=== PATIENT | female | born 1945 | race Caucasian/White ===

== ENCOUNTER 2017-01-07 09:09 | Emergency (ER) | payer OTHER, MEDICARE ==
[~2017-01-07] VITALS: Ht 167.6 cm; Wt 113.0 kg
[~2017-01-07 09:09] MED LIST: ASPCH81X PO; CALCTAB5 PO; CHOL100010 PO; METAMUCIL PO; MULT-506 PO; PRED1SUS3 OP; SERT50TA PO
[2017-01-07 09:15] VITALS: TEMP 36.7; Ht 167.6 cm; Wt 113.0 kg
[2017-01-07] MEDS ORDERED: CALC-393 PO (09:36)
[2017-01-07] MEDS ORDERED: FSM70 PO (09:37)
[2017-01-07] MEDS ORDERED: CHOL100041 PO (09:37)
--- NOTE | 2017-01-07 09:44 | EMERGENCY ROOM VISIT NOTE ---
History Report prepared by Louis: Naheed Duke Under the Supervision of: Dr. Heather Manzo M.D. First contact with patient: 09:25 Chief Complaint: CHEST PAIN Stated Complaint: CHEST PAINS, ARM/SHOULDER PAIN Nursing Triage Summary: Pt states she woke in the middle of the night like she always does and noticed chest discomfort, center of the chest, into the shoulder, took 6 baby aspirin and went back to bed, awoke today still had the discomfort, went to worship and her friend convinced her to come to the ER. History of Present Illness The patient is a 71 year old female who presents to the Emergency Room with complaints of persistent chest pain that began last night before she went to bed. She describes it as sore. She states that the pain feels slightly like indigestion, so she took Maalox. She went to bed but woke up around 4AM this morning with pain also in her left shoulder and left upper arm. She took 6 baby aspirin and fell back asleep. This morning when she woke up, she had pain in her chest and left upper back but not in her left arm. Denies shortness of breath, nausea, leg swelling, increased symptoms with exertion, or other complaints. She does not have a history of neck pain. Denies recent long trips. She had a stress test about 4 years ago. Source of History: patient Onset: last night Position: chest Quality: other (sore) Timing: other (persistent) Associated Symptoms: No SOB, No nausea Review of Systems See HPI for pertinent positives & negatives. A total of 10 systems reviewed and were otherwise negative. Past Medical & Surgical Medical Problems: (1) Hypertension Surgical Problems: (1) History of laminectomy (2) History of lumpectomy of both breasts (3) History of sleeve gastrectomy Family History Cancer Diabetes mellitus Heart disease Hypertension Kidney disease Social History Smoking Status: Former Smoker Alcohol Use: occasionally Marital Status: Occupation Status: retired Current/Historical Medications Scheduled Alendronate Sodium (Alendronate Sodium), 70 MG PO WK Aspirin (Aspirin Chewable), 81 MG PO QPM Calcium Carbonate (Calcium), 600 MG PO BID Cholecalciferol (D 1000), 1,000 INTER.UNIT PO BID Multivitamin (Multivitamin), 1 TAB PO BID Sertraline (Zoloft), 25 MG PO QPM Allergies Coded Allergies: Codeine (Unverified Adverse Reaction, Mild, ITCHING, 01/07/17) Physical Exam Vital Signs Date Time Temp Pulse Resp B/P Pulse Ox O2 Delivery O2 Flow Rate FiO2 01/07/17 13:14 84 122/80 95 01/07/17 11:30 68 118/70 96 01/07/17 10:54 75 112/87 96 01/07/17 09:34 78 01/07/17 09:15 36.7 81 20 173/97 97 Room Air Physical Exam Vital signs reviewed. General: Elderly, well-appearing 71 year old female, in no significant distress. HEENT: No scleral icterus, PERRLA, neck supple. Atraumatic. Cardiovascular: Regular rate and rhythm, no extra sounds. Pulmonary: Clear to auscultation bilaterally, normal work of breathing. Abdomen: Obese, soft, nontender, nondistended, positive bowel sounds. Musculoskeletal: Atraumatic, no peripheral edema. Nontender to palpation over the anterior chest wall. Minimal discomfort with range of motion of the left shoulder. Non-tender to palpation of the c-spine. Neurologic: Patient awake alert and oriented x 3, full strength in all 4 extremities. Cranial nerves 2 through 12 grossly intact. Skin: Warm, dry, no rash Medical Decision & Procedures ER Provider Diagnostic Interpretation: Radiology results as stated below per my review and radiologist interpretation: LEFT SHOULDER MIN 2 VIEWS ROUTINE CLINICAL HISTORY: L shoulder pain COMPARISON: None. DISCUSSION: No fractures or dislocations are visualized. There are benign-appearing subcentimeter lucencies within the humeral head. Degenerative changes are present within the AC joint. IMPRESSION: No fractures dislocations or periarticular calcifications are visualized Electronically signed by: Tomas Reyes M.D. 01/07/2017 11:08 AM Dictated Date/Time: 01/07/2017 11:08 AM CHEST 2 VIEWS ROUTINE CLINICAL HISTORY: Atypical chest pain COMPARISON STUDY: No previous studies for comparison. FINDINGS: The heart is at the upper limits of normal in size. There is no failure. There is no lobar consolidation. Nodular densities at the level the left cardiophrenic angle, likely representing focal atelectasis.[ No pleural effusions are visualized. IMPRESSION: Subcentimeter nodular densities at the level of left cardiophrenic angle, statistically atelectatic. No evidence of failure. No evidence of lobar consolidation Electronically signed by: Tomas Reyes M.D. 01/07/2017 10:59 AM Dictated Date/Time: 01/07/2017 10:58 AM C-SPINE ROUTINE 4 OR 5 VIEWS CLINICAL HISTORY: L shoulder pain COMPARISON STUDY: No previous studies for comparison. FINDINGS: The prevertebral soft tissues are normal. There are multilevel degenerative changes present. No acute fractures or traumatic subluxations are visualized. There is uncovertebral joint spurring with mild multilevel bony foraminal narrowing. IMPRESSION: Moderate multilevel degenerative change. No fractures, subluxations, or destructive lesions are visualized. Electronically signed by: Tomas Reyes M.D. 01/07/2017 11:00 AM Dictated Date/Time: 01/07/2017 10:59 AM Laboratory Results 01/07/17 09:20 Red Blood Count 4.82, Mean Corpuscular Volume 88.4, Mean Corpuscular Hemoglobin 29.0, Mean Corpuscular Hemoglobin Concent 32.9, Mean Platelet Volume 12.6, Neutrophils (%) (Auto) 63.1, Lymphocytes (%) (Auto) 24.2, Monocytes (%) (Auto) 9.3, Eosinophils (%) (Auto) 3.2, Basophils (%) (Auto) 0.1, Neutrophils # (Auto) 4.60, Lymphocytes # (Auto) 1.77, Monocytes # (Auto) 0.68, Eosinophils # (Auto) 0.23, Basophils # (Auto) 0.01 01/07/17 09:20 Test 01/07/17 09:20 01/07/17 12:02 White Blood Count 7.30 K/uL (4.8-10.8) Red Blood Count 4.82 M/uL (4.2-5.4) Hemoglobin 14.0 g/dL (12.0-16.0) Hematocrit 42.6 % (37-47) Mean Corpuscular Volume 88.4 fL (80-100) Mean Corpuscular Hemoglobin 29.0 pg (25-34) Mean Corpuscular Hemoglobin Concent 32.9 g/dl (32-36) Platelet Count 202 K/uL (130-400) Mean Platelet Volume 12.6 fL (7.4-10.4) Neutrophils (%) (Auto) 63.1 % Lymphocytes (%) (Auto) 24.2 % Monocytes (%) (Auto) 9.3 % Eosinophils (%) (Auto) 3.2 % Basophils (%) (Auto) 0.1 % Neutrophils # (Auto) 4.60 K/uL (1.4-6.5) Lymphocytes # (Auto) 1.77 K/uL (1.2-3.4) Monocytes # (Auto) 0.68 K/uL (0.11-0.59) Eosinophils # (Auto) 0.23 K/uL (0-0.5) Basophils # (Auto) 0.01 K/uL (0-0.2) RDW Standard Deviation 45.5 fL (36.4-46.3) RDW Coefficient of Variation 14.1 % (11.5-14.5) Immature Granulocyte % (Auto) 0.1 % Immature Granulocyte # (Auto) 0.01 K/uL (0.00-0.02) Anion Gap 9.0 mmol/L (3-11) Est Creatinine Clear Calc Drug Dose 78.5 ml/min Estimated GFR () 80.5 Estimated GFR (Non- 69.4 BUN/Creatinine Ratio 17.5 (10-20) Calcium Level 8.5 mg/dl (8.5-10.1) Total Bilirubin 0.5 mg/dl (0.2-1) Direct Bilirubin 0.1 mg/dl (0-0.2) Aspartate Amino Transf (AST/SGOT) 17 U/L (15-37) Alanine Aminotransferase (ALT/SGPT) 17 U/L (12-78) Alkaline Phosphatase 94 U/L (45-117) Total Creatine Kinase 74 U/L (26-192) Creatine Kinase MB 0.9 ng/ml (0.5-3.6) Creatine Kinase MB Ratio 1.2 (0-3.0) Total Protein 7.2 gm/dl (6.4-8.2) Albumin 3.4 gm/dl (3.4-5.0) Lipase 279 U/L (73-393) Bedside Troponin I 0.000 ng/ml (0-0.045) Laboratory results per my review. ECG Indication: chest pain Rate (beats per minute): 75 Rhythm: normal sinus Findings: no acute ischemic change, no ectopy ED Course 0933: The patient was evaluated in room A9. A complete history and physical examination was performed. 1250: Upon reevaluation, the patient was resting comfortably and hemodynamically stable. I discussed findings with the patient. She verbalized agreement of the treatment plan. The patient was discharged home. Medical Decision Chest pain: Acute coronary syndrome, pulmonary embolus, aortic dissection, musculoskeletal pain, pneumonia, pleural effusion, pneumothorax, cervical radiculopathy, shoulder injury. This patient was evaluated and appeared to be in no significant distress. IV access was obtained and laboratory work was drawn. The patient was placed on the case monitor and found to be in a normal sinus rhythm. EKG reveals no evidence of acute ischemia. Laboratory work reveals negative cardiac enzymes. Chest x-ray is clear. Patient was advised of the findings. She was advised to take Zantac 150 twice a day. She will use Tylenol as needed for her neck pain. I suspect this is potentially a cervical radiculopathy and gastritis. Patient will follow-up with her primary care physician for further cardiac testing as indicated. She will return to the ER for worsening of symptoms or any medical concerns. Impression Primary Impression: Chest pain radiating to upper extremity Scribe Attestation The scribe's documentation has been prepared under my direction and personally reviewed by me in its entirety. I confirm that the note above accurately reflects all work, treatment, procedures, and medical decision making performed by me. Departure Information Dispostion Home / Self-Care Referrals Arlyn Vallecillo D.O. (PCP) Patient Instructions My [facility] Additional Instructions Diagnosis: Chest pain rating to the left upper extremity Aspirin 81 mg daily, start tomorrow. Zantac 150 mg twice daily as needed for gastritis. Continue your Prilosec and other medications as prescribed. Follow-up with your physician this week for reevaluation and consideration of further cardiac testing. Return to the ER for worsening of symptoms or any medical concerns.
[2017-01-07 10:43] LABS: BASO % 0.1 %; BASO ABS # 0.01 K/uL (0-0.2); COMPLETE YES; EOS % 3.2 %; HEMATOCRIT 42.6 % (37-47); IG% 0.1 %; LYMPH % 24.2 %; LYMPH ABS # 1.77 K/uL (1.2-3.4); MEAN CELL VOLUME 88.4 fL (80-100); MEAN CORPUSCULAR HGB CONC 32.9 g/dl (32-36); MEAN PLATELET VOLUME 12.6 fL (7.4-10.4); MONO % 9.3 %; NEUT % 63.1 %; PLATELET COUNT 202 K/uL (130-400); RED BLOOD COUNT 4.82 M/uL (4.2-5.4)
[2017-01-07] MEDS ORDERED: SERT25TA PO (10:46)
[2017-01-07 10:51] LABS: BUN/CREATININE RATIO 17.5 (10-20); CALCIUM 8.5 mg/dl (8.5-10.1); CREATININE 0.85 mg/dl (0.60-1.20); POTASSIUM 4.2 mmol/L (3.5-5.1)
[2017-01-07 10:56] LABS: CKMB/CK RATIO 1.2 (0-3.0)
--- NOTE | 2017-01-07 11:00 | DIAGNOSTIC IMAGING REPORT ---
CHEST 2 VIEWS ROUTINE CLINICAL HISTORY: Atypical chest pain COMPARISON STUDY: No previous studies for comparison. FINDINGS: The heart is at the upper limits of normal in size. There is no failure. There is no lobar consolidation. Nodular densities at the level the left cardiophrenic angle, likely representing focal atelectasis.[ No pleural effusions are visualized. IMPRESSION: Subcentimeter nodular densities at the level of left cardiophrenic angle, statistically atelectatic. No evidence of failure. No evidence of lobar consolidation Electronically signed by: Tomas Reyes M.D. 01/07/2017 10:59 AM Dictated Date/Time: 01/07/2017 10:58 AM
--- NOTE | 2017-01-07 11:01 | DIAGNOSTIC IMAGING REPORT ---
C-SPINE ROUTINE 4 OR 5 VIEWS CLINICAL HISTORY: L shoulder pain COMPARISON STUDY: No previous studies for comparison. FINDINGS: The prevertebral soft tissues are normal. There are multilevel degenerative changes present. No acute fractures or traumatic subluxations are visualized. There is uncovertebral joint spurring with mild multilevel bony foraminal narrowing. IMPRESSION: Moderate multilevel degenerative change. No fractures, subluxations, or destructive lesions are visualized. Electronically signed by: Tomas Reyes M.D. 01/07/2017 11:00 AM Dictated Date/Time: 01/07/2017 10:59 AM
--- NOTE | 2017-01-07 11:10 | DIAGNOSTIC IMAGING REPORT ---
LEFT SHOULDER MIN 2 VIEWS ROUTINE CLINICAL HISTORY: L shoulder pain COMPARISON: None. DISCUSSION: No fractures or dislocations are visualized. There are benign-appearing subcentimeter lucencies within the humeral head. Degenerative changes are present within the AC joint. IMPRESSION: No fractures dislocations or periarticular calcifications are visualized Electronically signed by: Tomas Reyes M.D. 01/07/2017 11:08 AM Dictated Date/Time: 01/07/2017 11:08 AM
[2017-01-07 13:14] VITALS: BP 122/80; PULSE 84; O2SAT 95
== END 2017-01-07 13:15 | disposition home or self-care (01) ==
LOC: C.EDB 09:11 → C.EDA 13:15
DX: R07.9 Chest pain, unspecified (principal); M25.512 Pain in left shoulder; M54.6 Pain in thoracic spine; I10 Essential (primary) hypertension; Z79.899 Other long term (current) drug therapy; Z98.890 Other specified postprocedural states; Z79.82 Long term (current) use of aspirin; Z88.5 Allergy status to narcotic agent; Z87.891 Personal history of nicotine dependence; Z80.9 Family history of malignant neoplasm, unspecified; Z83.3 Family history of diabetes mellitus; Z82.49 Family history of ischemic heart disease and other diseases of the circulatory system; Z84.1 Family history of disorders of kidney and ureter

== ENCOUNTER 2024-04-12 10:18 | Inpatient (IN) ==
--- NOTE | 2024-04-12 10:29 | Emergency Department Note ---
History of Present Illness General Chief complaint: Fall Stated complaint: FALL Time Seen by Provider: 04/12/24 10:19 History of Present Illness This is a 78-year-old female that presents to the emergency department via EMS with complaints of "nausea, vomiting, fall". Patient currently on oral Eliquis she notes secondary to history of atrial fibrillation. Over the past 4 days she notes nausea, vomiting and diarrhea. No abdominal pain. She states that she fell last evening, struck her head/face, and laid on the floor for about 1 hour. She denies any headache or neck pain. She denies any chest pain or shortness of breath currently but noted some earlier today. Patient also notes a large amount of diarrhea over the past few days as well. Home Medications Medication Instructions Recorded Confirmed Type ASPIRIN (ASPIRIN CHEWABLE) 81 mg PO DAILY ##0 01/22/16 04/12/24 History Multivitamin 1 tab PO DAILY #0 tabs 01/22/16 04/12/24 History Alendronate Sodium 70 mg PO USEASDIRECTD ##0 01/07/17 04/12/24 History CALCIUM CARBONATE (CALCIUM) 600 mg PO DAILY ##0 01/07/17 04/12/24 History CHOLECALCIFEROL (D 1000) 1,000 inter.unit PO DAILY ##0 01/07/17 04/12/24 History apixaban 5 mg tablet (Eliquis) 5 mg PO BID 04/12/24 04/12/24 History atorvastatin 40 mg tablet 40 mg PO DAILY 04/12/24 04/12/24 History furosemide 20 mg tablet 20 mg PO .[id number] 04/12/24 04/12/24 History metoprolol succinate 25 mg 25 mg PO DAILY 04/12/24 04/12/24 History tablet,extended release 24 hr sertraline 100 mg tablet 150 mg PO QAM 04/12/24 04/12/24 History trospium 60 mg capsule,extended 60 mg PO QAM 04/12/24 04/12/24 History release 24 hr Allergies Allergy/AdvReac Type Severity Reaction Status Date / Time codeine AdvReac Mild ITCHING Verified 04/12/24 13:57 Past Med/Surg History Problem List (Updated 04/12/24 @ 18:11 by Teofilo Lewis PA-C) Elevated procalcitonin (Acute) Elevated lactic acid level (Acute) Elevated troponin (Acute) Acute dehydration (Acute) Persistent atrial fibrillation (Acute) Urinary incontinence Depression Prediabetes Hyperlipidemia Acute kidney failure (Acute) Dehydration symptoms Hydronephrosis with obstructing calculus (Acute) 15mm obstructing calculus at the R ureteropelvic junction causing moderate right hydronephrosis. Emphysematous pyelonephritis (Acute) Nephrolithiasis Chronic anticoagulation (Acute) Fall (Acute) Metabolic acidosis (Acute) NATALIO (acute kidney injury) Gastroenteritis Hypertension (Chronic) Medical History (Updated 04/12/24 @ 18:11 by Teofilo Lewis PA-C) Right renal mass Urinary calculus Cyst of left ovary Paraesophageal hiatal hernia Nocturnal enuresis Stress incontinence History of basal cell carcinoma Diverticulitis History of radiation therapy History of breast cancer Osteoporosis Recurrent UTI Urge incontinence of urine Heart murmur Paroxysmal A-fib Surgical History History of repair of hiatal hernia History of partial mastectomy of right breast History of laparoscopic cholecystectomy History of sleeve gastrectomy History of lumpectomy of both breasts History of laminectomy Social History Smoking Status: Former smoker Hx Alcohol Use: Yes Alcohol type: wine Hx Substance Use: No Preferred Language: Citizen Of [place] Communication Ability: Effective Hotel Baggage Handler Required: No Beliefs That Will Affect Care: None Current Living Situation: Alone Feels Safe at Home: Yes Review of Systems A total of 10 systems reviewed and were otherwise negative Physical Exam Vital Signs Vital Signs - 24 hr 04/12/24 10:34 04/12/24 10:42 04/12/24 10:47 Temperature 36.9 C Temperature Source Oral Pulse Rate 99 H 137 H Pulse Rate from SpO2 Sensor Respiratory Rate 18 31 H Respiratory Effort / Characteristics Non-Labored Respiratory Depth Normal Respiratory Pattern Regular Blood Pressure 107/77 Blood Pressure Mean 87 Pulse Oximetry 98 Oxygen Delivery Method Room Air Sepsis Recent Fever Within 48 Hours No Sepsis New/Unexplained Change in Mental Status N/A Sepsis Action Taken by Nursing No Action Required 04/12/24 10:51 04/12/24 11:09 04/12/24 11:12 Temperature Temperature Source Pulse Rate 110 H 105 H 101 H Pulse Rate from SpO2 Sensor 112 H Respiratory Rate 21 25 H 25 H Respiratory Effort / Characteristics Respiratory Depth Respiratory Pattern Blood Pressure Blood Pressure Mean Pulse Oximetry 98 Oxygen Delivery Method Sepsis Recent Fever Within 48 Hours Sepsis New/Unexplained Change in Mental Status Sepsis Action Taken by Nursing 04/12/24 11:27 04/12/24 11:39 04/12/24 11:51 Temperature Temperature Source Pulse Rate 98 H 94 H 103 H Pulse Rate from SpO2 Sensor Respiratory Rate 33 H 29 H 28 H Respiratory Effort / Characteristics Respiratory Depth Respiratory Pattern Blood Pressure Blood Pressure Mean Pulse Oximetry 96 Oxygen Delivery Method Sepsis Recent Fever Within 48 Hours Sepsis New/Unexplained Change in Mental Status Sepsis Action Taken by Nursing 04/12/24 11:54 04/12/24 12:03 04/12/24 12:12 Temperature Temperature Source Pulse Rate 98 H 109 H Pulse Rate from SpO2 Sensor Respiratory Rate 21 Respiratory Effort / Characteristics Respiratory Depth Respiratory Pattern Blood Pressure 63/48 L Blood Pressure Mean 58 Pulse Oximetry Oxygen Delivery Method Sepsis Recent Fever Within 48 Hours Sepsis New/Unexplained Change in Mental Status Sepsis Action Taken by Nursing 04/12/24 12:15 04/12/24 12:19 04/12/24 12:21 Temperature Temperature Source Pulse Rate Pulse Rate from SpO2 Sensor Respiratory Rate Respiratory Effort / Characteristics Respiratory Depth Respiratory Pattern Blood Pressure 90/73 L 64/48 L 73/46 L Blood Pressure Mean 80 53 47 Pulse Oximetry Oxygen Delivery Method Sepsis Recent Fever Within 48 Hours Sepsis New/Unexplained Change in Mental Status Sepsis Action Taken by Nursing 04/12/24 12:24 Temperature Temperature Source Pulse Rate 99 H Pulse Rate from SpO2 Sensor 101 H Respiratory Rate 28 H Respiratory Effort / Characteristics Respiratory Depth Respiratory Pattern Blood Pressure Blood Pressure Mean Pulse Oximetry 98 Oxygen Delivery Method Sepsis Recent Fever Within 48 Hours Sepsis New/Unexplained Change in Mental Status Sepsis Action Taken by Nursing VITAL SIGNS - Vital signs and nursing notes were reviewed. GENERAL -78-year-old female appearing her stated age who is in no acute distress. Clinically dry appearing. Yellow diarrhea/stool noted overlying the patient's backside. Communicates well with provider and answers questions appropriately. SKIN - Without rashes. No meningeal or petechial rash HEAD - NC/AT. EYES - PERRL with EOMI bilaterally. Sclera anicteric. EARS - No deformities of external structures noted on gross examination bilaterally. No hemotympanum. NOSE - Midline and without cyanosis. No epistaxis or purulent drainage noted. MOUTH/OROPHARYNX - Without perioral cyanosis. Oral mucosa is dry appearing. Small abrasion noted to the upper lip area and chin without repairable laceration. Small amount of ecchymosis seen overlying the chin. NECK - Neck with FROM. No C-spine tenderness. No nuchal rigidity. LUNGS - Chest wall symmetric without accessory muscle use, intercostals retractions, or central cyanosis. Normal vesicular breath sounds CTA B/L. No wheezes, rales, or rhonchi appreciated. CARDIAC - IRR ABDOMEN - Abdominal contour normal without pulsations or visible masses. BS normoactive all four quadrants. No tenderness, palpable masses, hepatosplenomegaly, or ascites noted. EXTREMITIES - No clubbing or peripheral cyanosis. No pretibial edema present. +5/5 strength noted in UE/LE bilaterally. NEUROLOGIC - Cranial nerves II through XII grossly intact. No deficits on examination PSYCH -alert, oriented and pleasant on exam Course Administered Medications Norepinephrine Bitartrate (Levophed/D5w) 4 mg in 250 mls @ 18.9 mls/hr IV .[id number] [facility]; Protocol Stop: 05/12/24 13:14 Last Admin: 04/12/24 15:00 Dose: 0.05 mcg/kg/min, 18.9 mls/hr Documented By: GEORGES Co-signed By: SERA Sodium Chloride (Nss) 1,000 mls @ 125 mls/hr IV .Q8H [facility] Stop: 05/12/24 15:52 Last Admin: 04/12/24 16:55 Dose: 125 mls/hr Documented By: AVIS Discontinued Medications Sodium Chloride (Nss) 1,000 mls @ 500 mls/hr IV .Q2H MARY Stop: 04/12/24 12:29 Last Infusion: 04/12/24 12:59 Dose: Infused Documented By: Admin: 04/12/24 10:40 Dose: 500 mls/hr Documented By: RAYO Piperacillin Sod/Tazobactam Sod (Zosyn) 4.5 gm in 100 mls @ 200 mls/hr IV NOW ONE Stop: 04/12/24 12:05 Last Infusion: 04/12/24 12:59 Dose: Infused Documented By: Admin: 04/12/24 11:57 Dose: 200 mls/hr Documented By: RAYO Sodium Chloride (Nss) 1,000 mls @ 500 mls/hr IV .Q2H MARY Stop: 04/12/24 13:44 Last Admin: 04/12/24 11:57 Dose: 500 mls/hr Documented By: RAYO Sodium Chloride (Nss) 500 mls @ 500 mls/hr IV .Q1H ONE Stop: 04/12/24 14:02 Last Admin: 04/12/24 13:25 Dose: 500 mls/hr Documented By: RAYO Lactated Ringer's (Lr) 1,000 mls @ 15 mls/hr IV .Q24H MARY Stop: 05/12/24 14:14 Last Infusion: 04/12/24 14:07 Dose: Infused Documented By: Admin: 04/12/24 14:02 Dose: 15 mls/hr Documented By: TANNA Critical Care Time I have personally spent 75 minutes of critical care time in the direct management of this patient. This includes bedside care, interpretation of diagnostic studies, and testing, discussion with consultants, patient, and family members, and other required patient management activities. This 75 minutes is in excess of all separately billable procedures. Medical Decision Making Laboratory Data 04/12/24 10:42 04/12/24 10:42 Lab Results 04/12/24 04/12/24 04/12/24 Range/Units 10:41 10:42 10:44 WBC 10.15 (4.8-10.8) K/ul RBC 4.49 (4.20-5.40) M/uL Hgb 12.6 (12.0-16.0) g/dl Hct 39.7 (37.0-47.0) % MCV 88.4 (80.0-100.0) fL MCH 28.1 (25.0-34.0) pg MCHC 31.7 L (32.0-36.0) g/dL RDW Std Deviation 49.2 H (36.4-46.3) fL RDW Coeff of Umu 15.3 H (11.5-14.5) % Plt Count 83 L (130-400) K/uL MPV 14.0 H (9.4-12.4) fL Immature Gran % (Auto) 2.4 % Neut % (Auto) 92.1 % Lymph % (Auto) 3.1 % [place] % (Auto) 2.1 % Eos % (Auto) 0.0 % Baso % (Auto) 0.3 % Neut # (Auto) 9.36 H (1.40-6.50) K/uL Lymph # (Auto) 0.31 L (1.20-3.40) K/uL [place] # (Auto) 0.21 (0.11-0.59) K/uL Eos # (Auto) 0.00 (0.00-0.50) K/uL Baso # (Auto) 0.03 (0.00-0.20) K/uL Immature Gran # (Auto) 0.24 H (0.01-0.20) K/uL Toxic Vacuolation 2+ Polychromasia 1+ Echinocytes 2+ PT 15.6 H (9.0-12.0) Seconds INR 1.5 H (0.9-1.1) APTT 37 H (21-31) Seconds PTT Ratio 1.4 Sodium 135 L (136-145) mmol/L Potassium 4.3 (3.5-5.1) mmol/L Chloride 103 (98-107) mmol/L Carbon Dioxide 15 L (21-32) mmol/L Anion Gap 17 H (3-11) BUN 39 H (6-23) mg/dl Creatinine 2.98 H (0.6-1.2) mg/dl Est Cr Clr Drug Dosing 18.9 ml/min Est GFR ( Amer) 16.8 ml/min Est GFR (Non-Af Amer) 14.5 ml/min BUN/Creatinine Ratio 13.1 (10-20) Glucose 76 (70-99(Fasting)) mg/dl Lactate 8.1 H* (0.4-2.0) mmol/L Calcium 8.5 L (8.6-10.3) mg/dl Magnesium 1.7 (1.7-2.4) mg/dl Total Bilirubin 1.4 H (0.2-1.0) mg/dl AST 69 H (13-39) U/L ALT 34 (7-52) U/L Alkaline Phosphatase 124 H (34-104) U/L Total Creatine Kinase 805 H (26-192) U/L Troponin I High Sens 748.3 H* (0-14) pg/ml Total Protein 6.4 (6.0-8.3) gm/dl Albumin 3.3 L (3.4-5.0) gm/dl Globulin 3.1 (2.5-4.0) gm/dl Albumin/Globulin Ratio 1.1 (0.9-2) Lipase 5 L (11-82) U/L Procalcitonin 55.60 H (0-0.5) ng/ml TSH 3.626 (0.300-4.500) uIu/ml Adenovirus (PCR) Not Detected (NotDetected) Anaplasma Smear See Comment Babesia Smear See Comment B. pertussis DNA (PCR) Not Detected (NotDetected) B.parapertussis DNA PCR Not Detected (NotDetected) Lyme Disease Screen Negative (Negative) C. pneumoniae DNA (PCR) Not Detected (NotDetected) Coronavirus OC43 (PCR) Not Detected (NotDetected) Coronavirus HKU1 (PCR) Not Detected (NotDetected) Coronavirus 229E (PCR) Not Detected (NotDetected) SARS-CoV-2 (PCR) Not Detected (NotDetected) Coronavirus NL63 (PCR) Not Detected (NotDetected) Human Metapneumovir PCR Not Detected (NotDetected) Influenza Type A (PCR) Not Detected (NotDetected) Influenza Type B (PCR) Not Detected (NotDetected) M. pneumoniae (PCR) Not Detected (NotDetected) Parainfluenza 1 (PCR) Not Detected (NotDetected) Parainfluenza 2 (PCR) Not Detected (NotDetected) Parainfluenza 3 (PCR) Not Detected (NotDetected) Parainfluenza 4 (PCR) Not Detected (NotDetected) RSV (PCR) Not Detected (NotDetected) Entero/Rhino (PCR) Not Detected (NotDetected) 04/12/24 Range/Units 12:27 WBC (4.8-10.8) K/ul RBC (4.20-5.40) M/uL Hgb (12.0-16.0) g/dl Hct (37.0-47.0) % MCV (80.0-100.0) fL MCH (25.0-34.0) pg MCHC (32.0-36.0) g/dL RDW Std Deviation (36.4-46.3) fL RDW Coeff of Umu (11.5-14.5) % Plt Count (130-400) K/uL MPV (9.4-12.4) fL Immature Gran % (Auto) % Neut % (Auto) % Lymph % (Auto) % [place] % (Auto) % Eos % (Auto) % Baso % (Auto) % Neut # (Auto) (1.40-6.50) K/uL Lymph # (Auto) (1.20-3.40) K/uL [place] # (Auto) (0.11-0.59) K/uL Eos # (Auto) (0.00-0.50) K/uL Baso # (Auto) (0.00-0.20) K/uL Immature Gran # (Auto) (0.01-0.20) K/uL Toxic Vacuolation Polychromasia Echinocytes PT (9.0-12.0) Seconds INR (0.9-1.1) APTT (21-31) Seconds PTT Ratio Sodium (136-145) mmol/L Potassium (3.5-5.1) mmol/L Chloride (98-107) mmol/L Carbon Dioxide (21-32) mmol/L Anion Gap (3-11) BUN (6-23) mg/dl Creatinine (0.6-1.2) mg/dl Est Cr Clr Drug Dosing ml/min Est GFR ( Amer) ml/min Est GFR (Non-Af Amer) ml/min BUN/Creatinine Ratio (10-20) Glucose (70-99(Fasting)) mg/dl Lactate 6.2 H* (0.4-2.0) mmol/L Calcium (8.6-10.3) mg/dl Magnesium (1.7-2.4) mg/dl Total Bilirubin (0.2-1.0) mg/dl AST (13-39) U/L ALT (7-52) U/L Alkaline Phosphatase (34-104) U/L Total Creatine Kinase (26-192) U/L Troponin I High Sens 759.8 H* (0-14) pg/ml Total Protein (6.0-8.3) gm/dl Albumin (3.4-5.0) gm/dl Globulin (2.5-4.0) gm/dl Albumin/Globulin Ratio (0.9-2) Lipase (11-82) U/L Procalcitonin (0-0.5) ng/ml TSH (0.300-4.500) uIu/ml Adenovirus (PCR) (NotDetected) Anaplasma Smear Babesia Smear B. pertussis DNA (PCR) (NotDetected) B.parapertussis DNA PCR (NotDetected) Lyme Disease Screen (Negative) C. pneumoniae DNA (PCR) (NotDetected) Coronavirus OC43 (PCR) (NotDetected) Coronavirus HKU1 (PCR) (NotDetected) Coronavirus 229E (PCR) (NotDetected) SARS-CoV-2 (PCR) (NotDetected) Coronavirus NL63 (PCR) (NotDetected) Human Metapneumovir PCR (NotDetected) Influenza Type A (PCR) (NotDetected) Influenza Type B (PCR) (NotDetected) M. pneumoniae (PCR) (NotDetected) Parainfluenza 1 (PCR) (NotDetected) Parainfluenza 2 (PCR) (NotDetected) Parainfluenza 3 (PCR) (NotDetected) Parainfluenza 4 (PCR) (NotDetected) RSV (PCR) (NotDetected) Entero/Rhino (PCR) (NotDetected) Imaging Data Radiologist's Impression: Abdomen Fluoroscopy 04/12/24 00:00 FL KUB CLINICAL HISTORY: RIGHT STENT PLACEMENT COMPARISON STUDY: None. FLUOROSCOPY TIME: 12 seconds FLUOROSCOPY IMAGES: 3 Ka,r: 4.2 mGy FINDINGS: Fluoroscopic spot images demonstrate a guidewire and stent within the right renal collecting system. IMPRESSION: Fluoroscopic assistance as above. ACT 112: Negative or not required by law. Electronically signed by: Boy Abel M.D. 04/12/2024 3:[address] 04/12/24 10:30 CT SCAN OF THE CERVICAL SPINE CLINICAL HISTORY: Fall. COMPARISON STUDY: Cervical spine radiographs dated 01/07/2017. TECHNIQUE: CT scan of the cervical spine is performed from the skull base to the upper thoracic spine. Images are reviewed in the axial, sagittal, and coronal planes. IV contrast was not administered for this examination. A dose lowering technique was utilized adhering to the principles of ALARA. CT DOSE: 1158.32 mGy.cm FINDINGS: Skeletal structures: The skeletal structures are osteopenic. There is no evidence of fracture or subluxation involving the cervical spine. Vertebral body height and alignment are maintained. There is straightening of the cervical lordosis. Anterior osteophytes are seen throughout. The odontoid process and lateral masses are intact. The atlantoaxial articulation is preserved noting advanced productive degenerative change. The spinous processes appear intact. There is moderate multilevel cervical spondylosis. Uncovertebral and facet arthropathy contribute to neural foraminal narrowing at several levels. Intervertebral discs: There is moderate disc space narrowing at C5-C6 and C6-C7. Mild narrowing is seen at the remaining cervical levels. Central canal: Posterior disc osteophyte complexes at C3-C4, C5-C6, and C6-C7 may contribute to multilevel acquired compromise of the central canal. Soft tissues: The prevertebral and paraspinous soft tissues are within normal limits. There is atherosclerotic calcification of the carotid bulbs. Calvarium: The visualized calvarium at the skull base appears intact. Brain parenchyma: Partially visualized brain parenchyma at the skull base is within normal limits. Sinuses and mastoids: The visualized paranasal sinuses are clear. The mastoid air cells are well pneumatized. Lung apices: Clear as visualized. IMPRESSION: 1. There is no evidence of fracture or subluxation involving the cervical spine. 2. Osteopenia and spondylotic change as above. ACT 112: Negative or not required by law. Electronically signed by: Jersey Gann M.D. 04/12/2024 11:23 AM Chest X-Ray 04/12/24 10:30 XR chest 1V portable HISTORY: 78 years-old Female fall acute chest trauma status post fall COMPARISON: 01/07/2017 TECHNIQUE: AP view of the chest FINDINGS: Cardiac silhouette is mildly enlarged. Atherosclerosis of the aorta. Areas of linear subsegmental atelectasis versus scarring noted within the left lung. No pneumothorax, pleural effusion, airspace consolidation or pulmonary edema. Upper abdominal surgical clips. Degenerative changes of the shoulders and spine. IMPRESSION: No acute process of the chest. ACT 112: Negative or not required by law. The above report was generated using voice recognition software. It may contain grammatical, syntax or spelling errors. Electronically signed by: Joshua Wynn M.D. 04/12/2024 11:[address] 04/12/24 10:30 CT facial bones wo con CLINICAL HISTORY: 78 years-old Female presenting with fall, facial trauma. Acute head and facial trauma status post fall COMPARISON STUDY: CT head and cervical spine studies of same day TECHNIQUE: High-resolution CT scan of the facial bones is performed. Images are reviewed in the axial, sagittal, and coronal planes. IV contrast was not administered for this examination. A dose lowering technique was utilized adhering to the principles of ALARA. FINDINGS: CT head and cervical spine studies will be dictated separately. Prior bilateral lens repair. Hyperostosis frontalis interna. The mastoid air cells and middle ear cavities are generally clear. Paranasal sinuses are clear. Chronic appearing anterior nasal septal defect. No acute facial bone fracture. Left supraclavicular lymphadenopathy. IMPRESSION: 1. No acute facial bone fracture identified. 2. Nonspecific left supraclavicular lymphadenopathy could be correlated with follow-up ultrasound/tissue sampling. ACT 112: Negative or not required by law. The above report was generated using voice recognition software. It may contain grammatical, syntax or spelling errors. Electronically signed by: Joshua Wynn M.D. 04/12/2024 11:[address] 04/12/24 10:[address] DOSE: HISTORY: fall, anticoagulated TECHNIQUE: Multiaxial CT images of the head were performed without the use of intravenous contrast. Automated exposure control was utilized for this study. A dose lowering technique was utilized adhering to the principles of ALARA. Comparison: None. Findings: The paranasal sinuses and mastoid air cells are clear. The calvarium and skull base are intact. There is no mass, hematoma, midline shift, acute infarct. White matter hypodensity is nonspecific but suggestive of microvascular ischemic change. The ventricles and sulci demonstrate mild age-related involutional changes. Impression: No acute intracranial abnormality. ACT 112: Negative or not required by law. Electronically signed by: Boy Abel M.D. 04/12/2024 11:41 AM Abdomen/Pelvis CT 04/12/24 12:13 CT SCAN OF THE ABDOMEN AND PELVIS WITHOUT IV CONTRAST CLINICAL HISTORY: Gastroenteritis. Hypotension. COMPARISON STUDY: Abdominal CT dated 02/28/2023. TECHNIQUE: CT scan of the abdomen and pelvis is performed from the lung bases to the proximal femora. Images are reviewed in the axial, sagittal, and coronal planes. IV contrast was not administered for this examination. Note that the examination was performed in suboptimal fashion without oral and IV contrast. A dose lowering technique was utilized adhering to the principles of ALARA. CT DOSE: 1489.07 mGy.cm FINDINGS: Lung bases: The heart is top normal for projection noting trace pericardial effusion. There is diminished attenuation of the cardiac blood pool as compared to the myocardium suggesting anemia. There are small right and trace left pleural effusions with dependent atelectasis. Liver: The unenhanced liver is normal in size, contour, and attenuation. There is no intrahepatic biliary ductal dilatation. Gallbladder: Surgically absent noting clips in the gallbladder fossa. Spleen: Normal in size and attenuation. Pancreas: The unenhanced pancreas is atrophic and grossly unremarkable. Adrenal glands: Unremarkable. Kidneys: The unenhanced kidneys demonstrate mild cortical atrophy. There is a 15 mm obstructing calculus at the right ureteropelvic junction seen on axial image #166. This causes moderate right hydronephrosis. There is gas within the right renal collecting system. There are at least 4 additional nonobstructing right renal calculi which measure up to 4 mm. There is a 10 mm calculus in the left renal pelvis, with 2 additional left lower pole calculi measuring up to 3 mm. There is no left ureteral stone or left-sided hydronephrosis. Urothelial thickening is seen in the renal pelvis bilaterally with surrounding inflammation. There is asymmetric right-sided perinephric stranding. A 2.4 cm complex exophytic cyst is again noted on the right. Abdominal vasculature: The abdominal aorta is normal in course and caliber noting mild to moderate atherosclerotic calcification. Stomach and bowel: There is a moderate hiatal hernia. Postsurgical change is seen in the stomach. There is mild to moderate colonic diverticulosis without CT evidence of acute diverticulitis. No bowel obstruction is identified. The appendix is well-visualized and normal. Peritoneum: There is a small volume of pelvic ascites. No intraperitoneal free air is seen. There is a fat-containing umbilical hernia. Lymphadenopathy: None. Pelvic viscera: The bladder is decompressed and appears thick-walled. There is intraluminal gas. The uterus is diminutive versus surgically absent. A 5 cm cystic lesion is again seen in the left ovary. Skeletal structures: The skeletal structures are osteopenic. There is moderate lumbosacral spondylosis. Postsurgical changes noted at L5-S1. No lytic or blastic lesions are seen. IMPRESSION: 1. There is a 15 mm obstructing calculus at the right ureteropelvic junction. This causes moderate right hydronephrosis. 2. Additional bilateral renal calculi as above. 3. The bladder appears thick walled and contains intraluminal gas. There is also gas within the right renal collecting system. Correlate with clinical findings and urinalysis for evidence of urinary tract infection. 4. Urothelial thickening is seen within the renal pelvis bilaterally. Perinephric stranding is asymmetrically greater on the right. 5. Small right and trace left pleural effusions. 6. Cardiomegaly and hiatal hernia. 7. Small volume pelvic ascites. 8. Additional findings as above. ACT 112: Negative or not required by law. Electronically signed by: Jersey Gann M.D. 04/12/2024 12:56 PM [facility] Narrative Patient was seen and evaluated as above in room C06. Review was performed of triage nursing notes and vital signs. After obtaining a thorough history and physical examination the above work up was performed. Patient presents to us today via EMS for assessment of 4 days of nausea, vomiting, diarrhea, chills, body aches and also sustained a fall last evening and laid on the ground for about 1 hour. She lives alone. Patient tried to call 911 but was unsuccessful therefore reached out to family member which she notes was her niece, and she then called 911. EMS then brought the patient here. On arrival the patient does have some diarrhea overlying her backside. Patient was being actively cleansed upon my assessment. She does not have any pain at the present time. She has a benign abdominal examination. She appears quite dehydrated. EKG per my interpretation reveals: Atrial fibrillation at a rate of 106 bpm. QTc 475. QRS 96. There is no ST elevation on this rhythm tracing. Labs reveal no leukocytosis or concerning anemia. INR 1.5. Hyponatremia 135. NATALIO noted with creatinine of 2.98 and BUN at 39. Initial lactate 8.1. Troponin elevated at 748. Patient does not have active chest pain. Lipase normal. Procalcitonin elevated at 55.6. Bio fire panel negative. Stool panel negative. Lyme testing preliminarily negative with confirmatory/send out test pending regarding tickborne illnesses at this time. Empiric IV antibiotics were ordered for suspected infectious etiology. The patient does require hospitalization and at this time remains hemodynamically stable. Upon multiple reassessments she continues to appear well. No complaints of pain at the present time. I did consult the hospitalist service for further evaluation and management in the inpatient setting. At 12:13 PM I received a phone call from the patient's RN. Patient was noted to be hypotensive at that time. I immediately went to bedside. This hypotension is a new finding. IV fluids currently infusing and now changed to wide open at this time to further the fluid resuscitation. A CT scan was going to be ordered of the abdomen/pelvis but had just already been entered as an order by the admitting service. Patient will be sent straight to CT for imaging of the abdomen/pelvis to further evaluate the patient's new hypotension in the setting of nauseous, vomiting and diarrhea. Noting concern for sepsis/dehydration, patient ideal body weight is 59 kg. 59 kg x 30 mL/kilogram equals just under 1800 mL. After the first liter of NSS, I did order another 800 mL to adequately hydrate and fluid resuscitate. However, once patient's vitals showed new hypotension the 800 mL was changed to 1000 mL to provide a total of 2L nss. Timing was closely watched to ensure that she received the 30 mL/kilogram in 3-hour window. 12:51- CTAP pictures reviewed and are concerning for ureteral obstructing stone w/ gas on Right side. I called and spoke to the radiologist as the pictures were just now available and the formal read is currently still pending. I spoke with Dr. Gann. There is an obstructing stone and clinically I suspect infection with this. At 12:55 PM I spoke with urology, Dr. Leo. The patient has emphysematous pyelonephritis. Patient will go directly to the operating room for stenting and intervention of the suspected UTI w/ obstruction secondary to ureteral calculus. 1:03PMI spoke with Dr. Escobar, ICU attending. Patient is being fluid resuscitated. Furthermore, recommendation is to start Levophed and patient will be taken to the ICU following the urologic procedure. Please refer to further documentation regarding patient stay. GCS: 15 In the evaluation and treatment of this patient the following differential diagnoses were entertained: Pneumonia, sepsis, dehydration, rhabdomyolysis, UTI, polynephritis, among others Impression & Plan Emphysematous pyelonephritis, Fall, Chronic anticoagulation, Hydronephrosis with obstructing calculus, Acute kidney failure, Acute dehydration, Elevated troponin, Elevated lactic acid level, Elevated procalcitonin, Persistent atrial fibrillation, Metabolic acidosis Discharge Plan Visit Data Chief Complaint: Fall Stated Complaint: FALL ED Provider: Jesrey Wilson ED Midlevel Provider: Teofilo Lewis Discharge Problem: Emphysematous pyelonephritis, Fall, Chronic anticoagulation, Hydronephrosis with obstructing calculus, Acute kidney failure, Acute dehydration, Elevated troponin, Elevated lactic acid level, Elevated procalcitonin, Persistent atrial fibrillation, Metabolic acidosis Patient Disposition: Admitted As Inpatient Discharge Instructions Interventions: ED Discharge Assessment Last Done: 04/12/24 13:49
[2024-04-12] MEDS: SODIUM CHLORIDE 0.9% 1,000 ML IV SCH ×3 (10:40→16:55)
[2024-04-12 11:13] LABS: Albumin Level 3.3 gm/dl (3.4-5.0); Bilirubin,Total 1.4 mg/dl (0.2-1.0); Calcium 8.5 mg/dl (8.6-10.3); Magnesium 1.7 mg/dl (1.7-2.4); Potassium 4.3 mmol/L (3.5-5.1)
[2024-04-12 11:19] LABS: Albumin Globulin Ratio 1.1 (0.9-2); BUN Creatinine Ratio 13.1 (10-20); Creatinine Clr Calc Pharmacy 18.9 ml/min; Est GFR (African American) 16.8 ml/min; Est GFR (Non-African American) 14.5 ml/min; Globulin 3.1 gm/dl (2.5-4.0); Total Protein 6.4 gm/dl (6.0-8.3)
--- NOTE | 2024-04-12 11:22 | XRay Report ---
XR chest 1V portable HISTORY: 78 years-old Female fall acute chest trauma status post fall COMPARISON: 01/07/2017 TECHNIQUE: AP view of the chest FINDINGS: Cardiac silhouette is mildly enlarged. Atherosclerosis of the aorta. Areas of linear subsegmental ate lectasis versus scarring noted within the left lung. No pneumothorax, pleural effusion, airspace cons olidation or pulmonary edema. Upper abdominal surgical clips. Degenerative changes of the shoulders a nd spine. IMPRESSION: No acute process of the chest. ACT 112: Negative or not required by law. The above report was generated using voice recognition software. It may contain grammatical, syntax o r spelling errors. Electronically signed by: Joshua Wynn M.D. 04/12/2024 11:20 AM
[2024-04-12 11:24] LABS: INR 1.5 (0.9-1.1); Partial Thromboplastin Ratio 1.4; Partial Thromboplastin Time 37 Seconds (21-31); Prothrombin Time 15.6 Seconds (9.0-12.0)
--- NOTE | 2024-04-12 11:24 | CT Scan Report ---
CT SCAN OF THE CERVICAL SPINE CLINICAL HISTORY: Fall. COMPARISON STUDY: Cervical spine radiographs dated 01/07/2017. TECHNIQUE: CT scan of the cervical spine is performed from the skull base to the upper thoracic spine . Images are reviewed in the axial, sagittal, and coronal planes. IV contrast was not administered fo r this examination. A dose lowering technique was utilized adhering to the principles of ALARA. CT DOSE: 1158.32 mGy.cm FINDINGS: Skeletal structures: The skeletal structures are osteopenic. There is no evidence of fracture or subl uxation involving the cervical spine. Vertebral body height and alignment are maintained. There is s traightening of the cervical lordosis. Anterior osteophytes are seen throughout. The odontoid process and lateral masses are intact. The atlantoaxial articulation is preserved noting advanced productive degenerative change. The spinous processes appear intact. There is moderate multilevel cervical spon dylosis. Uncovertebral and facet arthropathy contribute to neural foraminal narrowing at several leve ls. Intervertebral discs: There is moderate disc space narrowing at C5-C6 and C6-C7. Mild narrowing is se en at the remaining cervical levels. Central canal: Posterior disc osteophyte complexes at C3-C4, C5-C6, and C6-C7 may contribute to multi level acquired compromise of the central canal. Soft tissues: The prevertebral and paraspinous soft tissues are within normal limits. There is athero sclerotic calcification of the carotid bulbs. Calvarium: The visualized calvarium at the skull base appears intact. Brain parenchyma: Partially visualized brain parenchyma at the skull base is within normal limits. Sinuses and mastoids: The visualized paranasal sinuses are clear. The mastoid air cells are well pneu matized. Lung apices: Clear as visualized. IMPRESSION: 1. There is no evidence of fracture or subluxation involving the cervical spine. 2. Osteopenia and spondylotic change as above. ACT 112: Negative or not required by law. Electronically signed by: Jersey Gann M.D. 04/12/2024 11:23 AM
[2024-04-12 11:25] LABS: Troponin I High Sensitivity 748.3 pg/ml (0-14)
[2024-04-12 11:32] LABS: Thyroid Stimulating Hormone 3.626 uIu/ml (0.300-4.500)
[2024-04-12 11:36] LABS: Hematocrit (blood only) 39.7 % (37.0-47.0); Hemoglobin 12.6 g/dl (12.0-16.0); Mean Corpuscular Hemoglobin 28.1 pg (25.0-34.0); Mean Corpuscular Hgb Conc 31.7 g/dL (32.0-36.0); Mean Corpuscular Volume 88.4 fL (80.0-100.0); Platelet Count 83 K/uL (130-400); RDW Coefficient of Variation 15.3 % (11.5-14.5); RDW Standard Deviation 49.2 fL (36.4-46.3); Red Blood Count 4.49 M/uL (4.20-5.40); White Blood Count 10.15 K/ul (4.8-10.8)
[2024-04-12 11:37] LABS: Basophils # (auto) 0.03 K/uL (0.00-0.20); Basophils % (auto) 0.3 %; Echinocytes 2+; Immature Granulocytes # (auto) 0.24 K/uL (0.01-0.20); Immature Granulocytes % (auto) 2.4 %; Lymphocytes # (auto) 0.31 K/uL (1.20-3.40); Lymphocytes % (auto) 3.1 %; Monocytes # (auto) 0.21 K/uL (0.11-0.59); Monocytes % (auto) 2.1 %; Neutrophils # (auto) 9.36 K/uL (1.40-6.50); Neutrophils % (auto) 92.1 %; Polychromasia 1+; Toxic Vacuolation 2+
--- NOTE | 2024-04-12 11:41 | CT Scan Report ---
CT facial bones wo con CLINICAL HISTORY: 78 years-old Female presenting with fall, facial trauma. Acute head and facial trau ma status post fall COMPARISON STUDY: CT head and cervical spine studies of same day TECHNIQUE: High-resolution CT scan of the facial bones is performed. Images are reviewed in the axia l, sagittal, and coronal planes. IV contrast was not administered for this examination. A dose lower ing technique was utilized adhering to the principles of ALARA. FINDINGS: CT head and cervical spine studies will be dictated separately. Prior bilateral lens repair. Hyperost osis frontalis interna. The mastoid air cells and middle ear cavities are generally clear. Paranasal sinuses are clear. Chronic appearing anterior nasal septal defect. No acute facial bone fracture. Lef t supraclavicular lymphadenopathy. IMPRESSION: 1. No acute facial bone fracture identified. 2. Nonspecific left supraclavicular lymphadenopathy could be correlated with follow-up ultrasound/tis brenda sampling. ACT 112: Negative or not required by law. The above report was generated using voice recognition software. It may contain grammatical, syntax o r spelling errors. Electronically signed by: Joshua Wynn M.D. 04/12/2024 11:40 AM
--- NOTE | 2024-04-12 11:43 | CT Scan Report ---
HEAD CT NONCONTRAST CT DOSE: HISTORY: fall, anticoagulated TECHNIQUE: Multiaxial CT images of the head were performed without the use of intravenous contrast. A utomated exposure control was utilized for this study. A dose lowering technique was utilized adheri ng to the principles of ALARA. Comparison: None. Findings: The paranasal sinuses and mastoid air cells are clear. The calvarium and skull base are int act. There is no mass, hematoma, midline shift, acute infarct. White matter hypodensity is nonspecifi c but suggestive of microvascular ischemic change. The ventricles and sulci demonstrate mild age-rela jamie involutional changes. Impression: No acute intracranial abnormality. ACT 112: Negative or not required by law. Electronically signed by: Boy Abel M.D. 04/12/2024 11:41 AM
--- NOTE | 2024-04-12 11:45 | Emergency Department Note ---
ED Visit Note I was consulted by the Advanced Practice Provider. I personally made/approved the management plan and take responsibility for the patient management. I performed a substantive portion of the visit. This includes the aspects of: [-I independently interpreted the following studies:][Chest x-ray does not show pneumonia or CHF. I see no rib fracture.] The patient presents after falling and being on the floor for some time. She was quite dehydrated on workup. She had abnormal chemistries. Her lactic acid was elevated. She appeared clinically dehydrated. Her troponin was elevated. The patient was given IV antibiotics as empiric coverage, she was given IV fluids for hydration. She will require a hospital stay, further workup and care . .
[2024-04-12] MEDS: PIPERACILLIN/TAZOBACTAM 4.5 GM/100 ML BAG IV ONE (11:57)
[2024-04-12 12:05] LABS: Adenovirus PCR Not Detected (NotDetected); Bordetella parapertussis PCR Not Detected (NotDetected); Bordetella pertussis PCR Not Detected (NotDetected); Chlamydia pneumoniae PCR Not Detected (NotDetected); Coronavirus 229E PCR Not Detected (NotDetected); Coronavirus CoV-2 (COVID19)PCR Not Detected (NotDetected); Coronavirus HKU1 PCR Not Detected (NotDetected); Coronavirus NL63 PCR Not Detected (NotDetected); Coronavirus OC43PCR Not Detected (NotDetected); Human Metapneumovirus PCR Not Detected (NotDetected); Influenza A PCR Not Detected (NotDetected); Influenza B PCR Not Detected (NotDetected); Mycoplasma pneumoniae PCR Not Detected (NotDetected); Parainfluenza Virus 1 PCR Not Detected (NotDetected); Parainfluenza Virus 2 PCR Not Detected (NotDetected); Parainfluenza Virus 3 PCR Not Detected (NotDetected); Parainfluenza Virus 4 PCR Not Detected (NotDetected); Respiratory Syncytial VirusPCR Not Detected (NotDetected); Rhinovirus/Enterovirus PCR Not Detected (NotDetected)
--- NOTE | 2024-04-12 12:46 | History & Physical Report ---
Date of Service April 12, 2024 Assessment & Plan (1) Hydronephrosis with obstructing calculus: (2) Emphysematous pyelonephritis: (3) Metabolic acidosis: (4) Acute kidney failure: (5) NATALIO (acute kidney injury): Plan: Iram Valentino is a 78y/o F with PMHx of prediabetes, paraesophageal hiatal hernia, persistent afib [on Eliquis], urinary incontinence, recurrent UTI and other problems listed below who presented to the ED via EMS for medical evaluation s/p fall this morning + nausea/diarrhea x 4 days and was found to have a 15mm obstructing stone at the R ureteropelvic junction causing moderate R hydronephrosis and emphysematous pyelonephritis. Patient does note an extensive history of recurrent UTIs. Patient notes she has had ~3 UTIs this year. She also has a hx of kidney stones, per my discussion w/ the patient. * Per [facility] documentation, most recent urine culture grew the following: E. coli and Aerococcus urinae --> Completed 03/25/2024. Vitals on admission: BP 107/77, RR 21, HR 109, Temp 36.9oC and SpO2 96% on RA. No leukocytosis. Initial lactate 8.1, repeat lactate ~2 hours later --> 6.2 [ downtrending]. Evidence of metabolic acidosis with anion gap 17. Total bili 1.4, AST 69, and Alk Phos 124. Total CK 805. Initial troponin 748.3, repeat troponin ~2 hours later --> 759.8 [ trending upwards]. Evidence of NATALIO with creatinine 2.98. BUN 39, GFR 14.5 --> Appears to be in ACUTE KIDNEY FAILURE. Chest x-ray revealed no acute process. Head CT displayed no acute injury or cranial abnormality. Face CT showed no acute facial bone fracture. However, there is nonspecific left supraclavicular lymphadenopathy noted. Cervical spine CT revealed no evidence of fracture or subluxation involving the cervical spine; osteopenia and spondylitic changes noted. As previously eluded to, CTAB revealed the following: * 15 mm obstructing calculus at the right ureteropelvic junction, causing moderate right hydronephrosis. * Additional bilateral renal calculi per imaging report. Bladder appears thick- walled and contains intraluminal gas. There is also gas within the right renal collecting system. * Urothelial thickening is seen within the renal pelvis bilaterally, perinephric stranding is asymmetrically greater on the right. * Small right and trace left pleural effusions, cardiomegaly and hiatal hernia. Small volume pelvic ascites. Of note, a Iniguez catheter was placed in the ED. PATIENT MEETS SEPSIS CRITERIA GIVEN FINDINGS ABOVE. She was administered the following in the ED: IV Zosyn 4.5g and 2.5L IV NSS. Urology [Dr. Dior] was consulted by ED provider (Teofilo Lewis PA-C) following discovery of CTAB findings above. Her SBP consistently remained low in the 60-80s in the ED, thus prompting administration of Levophed per Dr. Dior's orders. Patient was quickly taken to the OR for cystoscopy and R ureteral stent placement. * She will require ICU placement following the procedure given administration of a pressor agent/current level of care requirements. -Continuous cardiac monitoring --> Afib w/ RVR in ED. -RVP, Lyme disease screening negative. -Ordered additional IVF, IV Zosyn to begin upon transfer. -UA/urine culture pending, uncollected as of now but orders are in place. -Nephrology consult ordered, appreciate their recommendation(s)/input. -Measure I&O's, Iniguez catheter in place as per above. Blood culture received, results pending. -Repeat CMP, troponin and CBC (no diff) in AM --> Monitor LFTs given recent bump. Any additional AM labs per ICU. (6) Fall: (7) Dehydration symptoms: (8) Gastroenteritis: Plan: As per above: * Head CT displayed no acute injury or cranial abnormality. * Face CT showed no acute facial bone fracture. However, there is nonspecific left supraclavicular lymphadenopathy noted. * Cervical spine CT revealed no evidence of fracture or subluxation involving the cervical spine; osteopenia and spondylitic changes noted. -Stool culture NEGATIVE. Will continue aggressive IVF, IV Zosyn ordered. -PRN IV Zofran in place, monitor I&O's [as per above, Iniguez catheter in place]. (9) Persistent atrial fibrillation: (10) Chronic anticoagulation: Plan: Per my interpretation, EKG performed in the ED revealed the following: afib w/ RVR, HR 106bpm, QRS Dur 96ms and QT/QTc 358/475ms. When compared to EKG done 01/07/2017: afib has replaced sinus rhythm, nonspecific T wave abnormality now evident in anterior leads and QT has lengthened. Patient does follow with [facility]. Per [facility] documentation, it appears that she is scheduled to have a Watchman device placed in June (06/23/24) with Dr. Lea Carroll @ [facility] [place]. -Continuous cardiac monitoring as per above, HOLD Eliquis and aspirin for now --> Plt count on admission = 83. (11) Hyperlipidemia: Plan: -Will HOLD statin therapy for now given current evidence of acute renal failure/NATALIO. (12) Prediabetes: Plan: Most recent Hgb A1C 5.9, completed 02/20/24. -Diet-controlled, no need to repeat Hgb A1C at this time given findings above. (13) Depression: Plan: -Can continue RECEIVING CHECKER Zoloft while hospitalized. (14) Urinary incontinence: Plan: -Can continue RECEIVING CHECKER trospium chloride therapy while hospitalized. -Iniguez catheter in place as above, continue to closely monitor I&O's throughout hospitalization. (15) Hypertension: Plan: -Will HOLD metoprolol succinate for now --> Most recently recorded BP 73/52, SBP appears to be holding ~80s in the ED. -Can reassess need throughout hospitalization, coordinate restarting BB therapy as appropriate. DVT Prophylaxis: SCDs - For now. Code Status: Full Code PCP: Arlyn Vallecillo DO Dispo: Admit to ICU --> PATIENT WILL BE PLACED IN ICU FOLLOWING UROLOGICAL PROCEDURE W/ DR. DIOR. * Coordinate care w/ ICU to determine when patient will be stable enough to transition to PCU level of care. Patient seen in collaboration with Dr. Cason. Please see addendum. I spent a total of 75 minutes coordinating, documenting, and providing care for this patient excluding time spent in the performance of separately billed ser vices. This included personally reviewing all current laboratories and imaging studies, medical reconciliation, outpatient chart review and discussion with specialists. This chart was completed in part utilizing Speech Voice Recognition Software. Grammatical errors, random word insertions, pronoun errors, and incomplete sentences are an occasional consequence of this system due to software limit ations, ambient noise, and hardware issues. Any formal questions or concerns about the content, text, or information contained within the body of this dictation should be directly addressed to the provider for clarification. History of Present Illness Chief Complaint: Recent fall; Nausea & diarrhea x 4 days Primary Care Provider: Arlyn Vallecillo DO Iram Valenitno is a 78y/o F with PMHx of prediabetes, paraesophageal hiatal hernia, persistent atrial fibrillation [on Eliquis], urinary incontinence, recurrent UTI and other problems listed below who presented to the ED via EMS for evaluation s/p fall this morning and nausea/diarrhea x 4 days. History obtained from patient, and associated ED/PCP/specialist records. She is accompanied by a close relative in the room. Patient states that she has been experiencing nausea and diarrhea x 4 days. She denies any episodes of vomiting, but does endorse intermittent dry heaving. She has also had some intermittent right-sided flank pain since Thursday, which does not radiate anywhere. She is not currently having any pain. Patient reports that she has not had really anything to eat since Thursday. Reports poor hydration status, really unable to tolerate anything by mouth. Reports no significant urinary or bowel habit changes. As per above, she is on chronic Eliquis therapy d/t paroxysmal afib hx. She has had a large amount of diarrhea over the past couple of days, as previously mentioned, but denies any bloody bowel movements. She has been taking Zofran at home for the nausea with some relief, but it has not subsided entirely. She is not currently nauseous during our conversation. She has been taking Tylenol at home for the right-sided flank pain with some relief. She did have a fall out of bed this morning when trying to get up and subsequently hit her face and R shoulder off of the bed said nightstand. Patient reports never losing consciousness. It appears to have been a mechanical fall per talking w/ the patient. She states she may have felt a little lightheaded/dizzy at home intermittently, but did not feel these sensations prior to the fall this morning. Patient was able to get in contact with a close relative, who alerted EMS. She was on the floor for no longer than 45 minutes per her relative's recollection. She currently denies any lightheadedness/dizziness or headaches. Our conversation unfortunately had to be cut short d/t her requiring an emergent urologic procedure given the imaging findings below. Patient does note an extensive history of recurrent UTIs. Patient notes she has had ~3 UTIs this year. * Per [facility] documentation, most recent urine culture grew the following: E. coli and Aerococcus urinae --> Completed 03/25/2024. Vitals on admission: BP 107/77, RR 21, HR 109, Temp 36.9oC and SpO2 96% on RA. No leukocytosis. Initial lactate 8.1, repeat lactate ~2 hours later --> 6.2 [ downtrending]. Evidence of metabolic acidosis with anion gap 17. Total bili 1.4, AST 69, and Alk Phos 124. Total CK 805. Initial troponin 748.3, repeat troponin ~2 hours later --> 759.8 [ trending upwards]. Evidence of NATALIO with creatinine 2.98. BUN 39, GFR 14.5 --> Appears to be in ACUTE KIDNEY FAILURE. Chest x-ray revealed no acute process. Head CT displayed no acute injury or cranial abnormality. Face CT showed no acute facial bone fracture. However, there is nonspecific left supraclavicular lymphadenopathy noted. Cervical spine CT revealed no evidence of fracture or subluxation involving the cervical spine; osteopenia and spondylitic changes noted. CTAB revealed the following: * 15 mm obstructing calculus at the right ureteropelvic junction, causing moderate right hydronephrosis. * Additional bilateral renal calculi per imaging report. Bladder appears thick- walled and contains intraluminal gas. There is also gas within the right renal collecting system. * Urothelial thickening is seen within the renal pelvis bilaterally, perinephric stranding is asymmetrically greater on the right. * Small right and trace left pleural effusions, cardiomegaly and hiatal hernia. Small volume pelvic ascites. PATIENT MEETS SEPSIS CRITERIA Allergies Allergy/AdvReac Type Severity Reaction Status Date / Time codeine AdvReac Mild ITCHING Verified 04/12/24 13:57 Home Medications Medication Instructions Recorded Confirmed Type ASPIRIN (ASPIRIN CHEWABLE) 81 mg PO DAILY ##0 01/22/16 04/12/24 History Multivitamin 1 tab PO DAILY #0 tabs 01/22/16 04/12/24 History Alendronate Sodium 70 mg PO USEASDIRECTD ##0 01/07/17 04/12/24 History CALCIUM CARBONATE (CALCIUM) 600 mg PO DAILY ##0 01/07/17 04/12/24 History CHOLECALCIFEROL (D 1000) 1,000 inter.unit PO DAILY ##0 01/07/17 04/12/24 History apixaban 5 mg tablet (Eliquis) 5 mg PO BID 04/12/24 04/12/24 History atorvastatin 40 mg tablet 40 mg PO DAILY 04/12/24 04/12/24 History furosemide 20 mg tablet 20 mg PO .[id number] 04/12/24 04/12/24 History metoprolol succinate 25 mg 25 mg PO DAILY 04/12/24 04/12/24 History tablet,extended release 24 hr sertraline 100 mg tablet 150 mg PO QAM 04/12/24 04/12/24 History trospium 60 mg capsule,extended 60 mg PO QAM 04/12/24 04/12/24 History release 24 hr Past Med/Surg History Problem List (Updated 04/12/24 @ 20:01 by YANELY Burkett) Septic shock Elevated procalcitonin (Acute) Elevated lactic acid level (Acute) Elevated troponin (Acute) Acute dehydration (Acute) Persistent atrial fibrillation (Acute) Urinary incontinence Depression Prediabetes Hyperlipidemia Acute kidney failure (Acute) Dehydration symptoms Hydronephrosis with obstructing calculus (Acute) 15mm obstructing calculus at the R ureteropelvic junction causing moderate right hydronephrosis. Emphysematous pyelonephritis (Acute) Nephrolithiasis Chronic anticoagulation (Acute) Fall (Acute) Metabolic acidosis (Acute) NATALIO (acute kidney injury) Gastroenteritis Hypertension (Chronic) Medical History Right renal mass Urinary calculus Cyst of left ovary Paraesophageal hiatal hernia Nocturnal enuresis Stress incontinence History of basal cell carcinoma Diverticulitis History of radiation therapy History of breast cancer Osteoporosis Recurrent UTI Urge incontinence of urine Heart murmur Paroxysmal A-fib Surgical History History of repair of hiatal hernia History of partial mastectomy of right breast History of laparoscopic cholecystectomy History of sleeve gastrectomy History of lumpectomy of both breasts History of laminectomy Social History Smoking Status: Former smoker Hx Alcohol Use: Yes Alcohol type: wine Hx Substance Use: No Preferred Language: Ukrainian Communication Ability: Effective Service Attendant Required: No Beliefs That Will Affect Care: None Current Living Situation: Alone Feels Safe at Home: Yes Review of Systems Review of Systems: At least ten systems reviewed and negative, except as noted in the HPI. Physical Exam Physical Exam: General Appearance: Laying flat in bed, conversing appropriately. Appears quite dry on initial visual contact, no acute distress. Head/Face: Bruising noted on her chin, skin intact. No gross deformity. Eyes: Normal inspection, PERRL, conjunctivae normal, anicteric sclerae. ENT: External ear and nose normal, mucous membranes very dry in appearance. Neck: Normal visual inspection, trachea midline, no thyromegaly. No tenderness or deformity. Respiratory: Normal respiratory effort, lungs clear to auscultation, no wheeze, rales, rhonchi. No accessory muscle use. Cardiovascular: Irregular rate and rhythm. No murmur, normal peripheral pulses, no BLE edema. Vessels: No JVD. Chest: Normal inspection of chest. Abdomen/GI: Normal bowel sounds, soft, nontender, no hepatosplenomegaly. Extremities/Musculoskeletal: Additional bruising on R shoulder, skin intact. Can move all extremities, strength 5/5 bilaterally in UE and LE. Neurologic: PERRL, EOMI, accommodation nl, no face palsy, no dysarthria, CN's II-XI grossly intact bilaterally. Psychiatric: A+Ox3, euthymic affect. Very pleasant during our conversation, aware of the situation at hand. Skin: As per above, bruising noted on chin and R shoulder. No rashes noted. Results & Data Results & Data Vital Signs (Past 12 Hours) Vital Signs Temp Pulse Resp BP Pulse Ox O2 Del Method 04/12/24 12:21 73/46 L 04/12/24 12:19 64/48 L 04/12/24 12:15 90/73 L 04/12/24 12:12 63/48 L 04/12/24 12:03 109 H 04/12/24 11:54 98 H 21 04/12/24 11:51 103 H 28 H 04/12/24 11:39 94 H 29 H 04/12/24 11:27 98 H 33 H 96 04/12/24 11:12 101 H 25 H 04/12/24 11:09 105 H 25 H 04/12/24 10:51 110 H 21 98 04/12/24 10:47 36.9 C 04/12/24 10:42 137 H 31 H 04/12/24 10:34 99 H 18 107/77 98 Room Air Laboratory Results Short CBC 04/12/24 Range/Units 10:42 WBC 10.15 (4.8-10.8) K/ul Hgb 12.6 (12.0-16.0) g/dl Hct 39.7 (37.0-47.0) % Plt Count 83 L (130-400) K/uL BMP 04/12/24 10:42 Sodium 135 L Potassium 4.3 Chloride 103 Carbon Dioxide 15 L BUN 39 H Creatinine 2.98 H Glucose 76 Calcium 8.5 L Cardiac Enzymes 04/12/24 Range/Units 10:42 Total Creatine Kinase 805 H (26-192) U/L Liver Function 04/12/24 Range/Units 10:42 Total Bilirubin 1.4 H (0.2-1.0) mg/dl AST 69 H (13-39) U/L ALT 34 (7-52) U/L Alkaline Phosphatase 124 H (34-104) U/L Albumin 3.3 L (3.4-5.0) gm/dl Diagnostic Findings Cervical Spine CT 04/12/24 10:30 CT SCAN OF THE CERVICAL SPINE CLINICAL HISTORY: Fall. COMPARISON STUDY: Cervical spine radiographs dated 01/07/2017. TECHNIQUE: CT scan of the cervical spine is performed from the skull base to the upper thoracic spine. Images are reviewed in the axial, sagittal, and coronal planes. IV contrast was not administered for this examination. A dose lowering technique was utilized adhering to the principles of ALARA. CT DOSE: 1158.32 mGy.cm FINDINGS: Skeletal structures: The skeletal structures are osteopenic. There is no evidence of fracture or subluxation involving the cervical spine. Vertebral body height and alignment are maintained. There is straightening of the cervical lordosis. Anterior osteophytes are seen throughout. The odontoid process and lateral masses are intact. The atlantoaxial articulation is preserved noting advanced productive degenerative change. The spinous processes appear intact. There is moderate multilevel cervical spondylosis. Uncovertebral and facet arthropathy contribute to neural foraminal narrowing at several levels. Intervertebral discs: There is moderate disc space narrowing at C5-C6 and C6-C7. Mild narrowing is seen at the remaining cervical levels. Central canal: Posterior disc osteophyte complexes at C3-C4, C5-C6, and C6-C7 may contribute to multilevel acquired compromise of the central canal. Soft tissues: The prevertebral and paraspinous soft tissues are within normal limits. There is atherosclerotic calcification of the carotid bulbs. Calvarium: The visualized calvarium at the skull base appears intact. Brain parenchyma: Partially visualized brain parenchyma at the skull base is within normal limits. Sinuses and mastoids: The visualized paranasal sinuses are clear. The mastoid air cells are well pneumatized. Lung apices: Clear as visualized. IMPRESSION: 1. There is no evidence of fracture or subluxation involving the cervical spine. 2. Osteopenia and spondylotic change as above. ACT 112: Negative or not required by law. Electronically signed by: Jersey Gann M.D. 04/12/2024 11:23 AM Chest X-Ray 04/12/24 10:30 XR chest 1V portable HISTORY: 78 years-old Female fall acute chest trauma status post fall COMPARISON: 01/07/2017 TECHNIQUE: AP view of the chest FINDINGS: Cardiac silhouette is mildly enlarged. Atherosclerosis of the aorta. Areas of linear subsegmental atelectasis versus scarring noted within the left lung. No pneumothorax, pleural effusion, airspace consolidation or pulmonary edema. Upper abdominal surgical clips. Degenerative changes of the shoulders and spine. IMPRESSION: No acute process of the chest. ACT 112: Negative or not required by law. The above report was generated using voice recognition software. It may contain grammatical, syntax or spelling errors. Electronically signed by: Joshua Wynn M.D. 04/12/2024 11:[address] 04/12/24 10:30 CT facial bones wo con CLINICAL HISTORY: 78 years-old Female presenting with fall, facial trauma. Acute head and facial trauma status post fall COMPARISON STUDY: CT head and cervical spine studies of same day TECHNIQUE: High-resolution CT scan of the facial bones is performed. Images are reviewed in the axial, sagittal, and coronal planes. IV contrast was not admini stered for this examination. A dose lowering technique was utilized adhering to the principles of ALARA. FINDINGS: CT head and cervical spine studies will be dictated separately. Prior bilateral lens repair. Hyperostosis frontalis interna. The mastoid air cells and middle ear cavities are generally clear. Paranasal sinuses are clear. Chronic appearing anterior nasal septal defect. No acute facial bone fracture. Left supraclavicular lymphadenopathy. IMPRESSION: 1. No acute facial bone fracture identified. 2. Nonspecific left supraclavicular lymphadenopathy could be correlated with follow-up ultrasound/tissue sampling. ACT 112: Negative or not required by law. The above report was generated using voice recognition software. It may contain grammatical, syntax or spelling errors. Electronically signed by: Joshua Wynn M.D. 04/12/2024 11:[address] 04/12/24 10:[address] DOSE: HISTORY: fall, anticoagulated TECHNIQUE: Multiaxial CT images of the head were performed without the use of intravenous contrast. Automated exposure control was utilized for this study. A dose lowering technique was utilized adhering to the principles of ALARA. Comparison: None. Findings: The paranasal sinuses and mastoid air cells are clear. The calvarium and skull base are intact. There is no mass, hematoma, midline shift, acute infarct. White matter hypodensity is nonspecific but suggestive of microvascular ischemic change. The ventricles and sulci demonstrate mild age-related involutional changes. Impression: No acute intracranial abnormality. ACT 112: Negative or not required by law. Electronically signed by: Boy Abel M.D. 04/12/2024 11:41 AM Abdomen/Pelvis CT 04/12/24 12:13 CT SCAN OF THE ABDOMEN AND PELVIS WITHOUT IV CONTRAST CLINICAL HISTORY: Gastroenteritis. Hypotension. COMPARISON STUDY: Abdominal CT dated 02/28/2023. TECHNIQUE: CT scan of the abdomen and pelvis is performed from the lung bases to the proximal femora. Images are reviewed in the axial, sagittal, and coronal planes. IV contrast was not administered for this examination. Note that the examination was performed in suboptimal fashion without oral and IV contrast. A dose lowering technique was utilized adhering to the principles of ALARA. CT DOSE: 1489.07 mGy.cm FINDINGS: Lung bases: The heart is top normal for projection noting trace pericardial effusion. There is diminished attenuation of the cardiac blood pool as compared to the myocardium suggesting anemia. There are small right and trace left pleural effusions with dependent atelectasis. Liver: The unenhanced liver is normal in size, contour, and attenuation. There is no intrahepatic biliary ductal dilatation. Gallbladder: Surgically absent noting clips in the gallbladder fossa. Spleen: Normal in size and attenuation. Pancreas: The unenhanced pancreas is atrophic and grossly unremarkable. Adrenal glands: Unremarkable. Kidneys: The unenhanced kidneys demonstrate mild cortical atrophy. There is a 15 mm obstructing calculus at the right ureteropelvic junction seen on axial image #166. This causes moderate right hydronephrosis. There is gas within the right renal collecting system. There are at least 4 additional nonobstructing right renal calculi which measure up to 4 mm. There is a 10 mm calculus in the left renal pelvis, with 2 additional left lower pole calculi measuring up to 3 mm. There is no left ureteral stone or left-sided hydronephrosis. Urothelial thickening is seen in the renal pelvis bilaterally with surrounding inflammation. There is asymmetric right-sided perinephric stranding. A 2.4 cm complex exophytic cyst is again noted on the right. Abdominal vasculature: The abdominal aorta is normal in course and caliber noting mild to moderate atherosclerotic calcification. Stomach and bowel: There is a moderate hiatal hernia. Postsurgical change is seen in the stomach. There is mild to moderate colonic diverticulosis without CT evidence of acute diverticulitis. No bowel obstruction is identified. The appendix is well-visualized and normal. Peritoneum: There is a small volume of pelvic ascites. No intraperitoneal free air is seen. There is a fat-containing umbilical hernia. Lymphadenopathy: None. Pelvic viscera: The bladder is decompressed and appears thick-walled. There is intraluminal gas. The uterus is diminutive versus surgically absent. A 5 cm cystic lesion is again seen in the left ovary. Skeletal structures: The skeletal structures are osteopenic. There is moderate lumbosacral spondylosis. Postsurgical changes noted at L5-S1. No lytic or blastic lesions are seen. IMPRESSION: 1. There is a 15 mm obstructing calculus at the right ureteropelvic junction. This causes moderate right hydronephrosis. 2. Additional bilateral renal calculi as above. 3. The bladder appears thick walled and contains intraluminal gas. There is also gas within the right renal collecting system. Correlate with clinical findings and urinalysis for evidence of urinary tract infection. 4. Urothelial thickening is seen within the renal pelvis bilaterally. Perinephric stranding is asymmetrically greater on the right. 5. Small right and trace left pleural effusions. 6. Cardiomegaly and hiatal hernia. 7. Small volume pelvic ascites. 8. Additional findings as above. ACT 112: Negative or not required by law. Electronically signed by: Jersey Gann M.D. 04/12/2024 12:56 PM Medications Administered Sodium Chloride (Nss) 500 mls @ 500 mls/hr IV .Q1H ONE Stop: 04/12/24 14:02 Last Admin: 04/12/24 13:25 Dose: 500 mls/hr Documented By: RAYO Discontinued Medications Sodium Chloride (Nss) 1,000 mls @ 500 mls/hr IV .Q2H MARY Stop: 04/12/24 12:29 Last Infusion: 04/12/24 12:59 Dose: Infused Documented By: Admin: 04/12/24 10:40 Dose: 500 mls/hr Documented By: RAYO Piperacillin Sod/Tazobactam Sod (Zosyn) 4.5 gm in 100 mls @ 200 mls/hr IV NOW ONE Stop: 04/12/24 12:05 Last Infusion: 04/12/24 12:59 Dose: Infused Documented By: Admin: 04/12/24 11:57 Dose: 200 mls/hr Documented By: RAYO Sodium Chloride (Nss) 1,000 mls @ 500 mls/hr IV .Q2H MARY Stop: 04/12/24 13:44 Last Admin: 04/12/24 11:57 Dose: 500 mls/hr Documented By: RAYO ECG Additional Comments: Per my interpretation, EKG performed in the ED revealed the following: afib w/ RVR, HR 106bpm, QRS Dur 96ms and QT/QTc 358/475ms. When compared to EKG done 01/07/2017: afib has replaced sinus rhythm, nonspecific T wave abnormality now evident in anterior leads and QT has lengthened. Code Status & VTE Plan Code Status FULL CODE VTE Prophylaxis Plan VTE Prophylaxis will be ordered: Yes Supervising Physician Co-Signing Physician Notes Attending Addendum: Case reviewed with the advanced practitioner. I have personally performed a history and physical examination on the patient. I have reviewed the advanced practitioner's documentation on the date of service referenced in note, and I agree with, and take responsibility for the plan of care. please refer to her notes for full details patient seen and examined, records reviewed by myself as well on exam, patient Seen resting in bed, not in distress Blood pressure systolic 60s, awake and alert, answering questions IV NS bolus in progress Repeat blood pressure systolic 80s Reporting right flank pain Stat CT abdomen and pelvis showing 1.5 cm right UPJ stone Urology is consulted, rug washer consulted no other symptoms VS noted and reviewed orientedx 3 , not in distress, speaks in sentences with no effort nor accessory muscle use normal rate, regular rhythm, no murmurs clear breath sounds bilaterally non distended, soft, nontender no bipedal edema, erythema, warmth no neuro deficits all labs, imaging noted and reviewed ASSESSMENT AND PLAN Septic shock Right UPJ stone Urinary tract infection Brought emergently to the OR for stent placement Nephrolithiasis, 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 On IV Levophed IV Zosyn Follow-up urine and blood cultures other diagnoses and plan of care as per advanced practitioner's notes Yvan Cason MD (4) Acute kidney failure Acute renal failure type: unspecified Qualified Code(s): N17.9 - Acute kidney failure, unspecified (6) Fall Encounter type: initial encounter Qualified Code(s): W19.XXXA - Unspecified fall, initial encounter (11) Hyperlipidemia Hyperlipidemia type: unspecified Qualified Code(s): E78.5 - Hyperlipidemia, unspecified (13) Depression Depression Type: unspecified Qualified Code(s): F32.A - Depression, unspecified (14) Urinary incontinence Urinary Incontinence type: unspecified incontinence Qualified Code(s): R32 - Unspecified urinary incontinence (15) Hypertension Hypertension type: unspecified Qualified Code(s): I10 - Essential (primary) hypertension
--- NOTE | 2024-04-12 12:57 | CT Scan Report ---
CT SCAN OF THE ABDOMEN AND PELVIS WITHOUT IV CONTRAST CLINICAL HISTORY: Gastroenteritis. Hypotension. COMPARISON STUDY: Abdominal CT dated 02/28/2023. TECHNIQUE: CT scan of the abdomen and pelvis is performed from the lung bases to the proximal femora. Images are reviewed in the axial, sagittal, and coronal planes. IV contrast was not administered for this examination. Note that the examination was performed in suboptimal fashion without oral and IV contrast. A dose lowering technique was utilized adhering to the principles of ALARA. CT DOSE: 1489.07 mGy.cm FINDINGS: Lung bases: The heart is top normal for projection noting trace pericardial effusion. There is dimini shed attenuation of the cardiac blood pool as compared to the myocardium suggesting anemia. There are small right and trace left pleural effusions with dependent atelectasis. Liver: The unenhanced liver is normal in size, contour, and attenuation. There is no intrahepatic leslie iary ductal dilatation. Gallbladder: Surgically absent noting clips in the gallbladder fossa. Spleen: Normal in size and attenuation. Pancreas: The unenhanced pancreas is atrophic and grossly unremarkable. Adrenal glands: Unremarkable. Kidneys: The unenhanced kidneys demonstrate mild cortical atrophy. There is a 15 mm obstructing calcu edlia at the right ureteropelvic junction seen on axial image #166. This causes moderate right hydronep hrosis. There is gas within the right renal collecting system. There are at least 4 additional nonobs tructing right renal calculi which measure up to 4 mm. There is a 10 mm calculus in the left renal pe lvis, with 2 additional left lower pole calculi measuring up to 3 mm. There is no left ureteral stone or left-sided hydronephrosis. Urothelial thickening is seen in the renal pelvis bilaterally with lucas rounding inflammation. There is asymmetric right-sided perinephric stranding. A 2.4 cm complex exophy tic cyst is again noted on the right. Abdominal vasculature: The abdominal aorta is normal in course and caliber noting mild to moderate at herosclerotic calcification. Stomach and bowel: There is a moderate hiatal hernia. Postsurgical change is seen in the stomach. The re is mild to moderate colonic diverticulosis without CT evidence of acute diverticulitis. No bowel o bstruction is identified. The appendix is well-visualized and normal. Peritoneum: There is a small volume of pelvic ascites. No intraperitoneal free air is seen. There is a fat-containing umbilical hernia. Lymphadenopathy: None. Pelvic viscera: The bladder is decompressed and appears thick-walled. There is intraluminal gas. The uterus is diminutive versus surgically absent. A 5 cm cystic lesion is again seen in the left ovary. Skeletal structures: The skeletal structures are osteopenic. There is moderate lumbosacral spondylosi s. Postsurgical changes noted at L5-S1. No lytic or blastic lesions are seen. IMPRESSION: 1. There is a 15 mm obstructing calculus at the right ureteropelvic junction. This causes moderate ri ght hydronephrosis. 2. Additional bilateral renal calculi as above. 3. The bladder appears thick walled and contains intraluminal gas. There is also gas within the right renal collecting system. Correlate with clinical findings and urinalysis for evidence of urinary tra ct infection. 4. Urothelial thickening is seen within the renal pelvis bilaterally. Perinephric stranding is asymme trically greater on the right. 5. Small right and trace left pleural effusions. 6. Cardiomegaly and hiatal hernia. 7. Small volume pelvic ascites. 8. Additional findings as above. ACT 112: Negative or not required by law. Electronically signed by: Jersey Gann M.D. 04/12/2024 12:56 PM
[2024-04-12 12:58] LABS: Adenovirus F 40/41 PCR Not Detected (NotDetected); Astrovirus PCR Not Detected (NotDetected); Campylobacter PCR Not Detected (NotDetected); Cryptosporidium PCR Not Detected (NotDetected); Cyclospora cayetanensis PCR Not Detected (NotDetected); Entamoeba histolytica PCR Not Detected (NotDetected); Enteroaggregative E.coli(EAEC) Not Detected (NotDetected); Enteropathogenic E.coli (EPEC) Not Detected (NotDetected); Enterotoxigenic E.coli (ETEC) Not Detected (NotDetected); Giardia lamblia PCR Not Detected (NotDetected); Norovirus GI/GII PCR Not Detected (NotDetected); Plesiomonas shigelloides PCR Not Detected (NotDetected); Rotavirus A PCR Not Detected (NotDetected); Salmonella PCR Not Detected (NotDetected); Sapovirus PCR Not Detected (NotDetected); Shiga-like Toxin E.coli (STEC) Not Detected (NotDetected); Shigella/Enteroinvasive E.coli Not Detected (NotDetected); Vibrio cholerae PCR Not Detected (NotDetected); Vibrio species PCR Not Detected (NotDetected); Yersinia enterocolitica PCR Not Detected (NotDetected)
--- NOTE | 2024-04-12 13:02 | Emergency Department Note ---
ED Visit Note The patient's blood pressure dropped during her ED stay. A stat CT of the abdomen pelvis was performed, emphysematous pyelonephritis was noted with a stone blocking the proximal left ureter. The patient was given additional IV fluids, a Iniguez catheter was placed. Urology, the ICU and medicine were consulted. The patient will be transferred to the operating room, she may require ICU care after. .
--- NOTE | 2024-04-12 13:04 | Urology Consultation ---
Date of Consultation April 12, 2024 Assessment & Plan (1) Nephrolithiasis: (2) Emphysematous pyelonephritis: Plan Acutely ill with emphysematous pyelonephritis and obstructing calculus. Immediate decision to take the patient to the operating room for cystoscopy and right ureteral stent placement. She will require intensive care monitoring after surgery. Continue active resuscitation. History of Present Illness History of Present Illness 78-year-old female presents with several days of acute illness. Diarrhea, nausea, fevers, tachycardia. Upon arrival in the ER she was resuscitated partially with fluids and underwent a full evaluation including CT. CT reveals emphysematous pyelonephritis with an obstructing right ureteral calculus/UPJ calculus. She has an additional stone on the left side but does not appear to be causing obstruction. She has not had meaningful p.o. intake in 3 days. She has no prior history of care at [facility]. Was called directly by the ER for evaluation. Allergies Allergy/AdvReac Type Severity Reaction Status Date / Time codeine AdvReac Mild ITCHING Unverified 01/07/17 09:35 Home Medications Medication Instructions Recorded Confirmed Type ASPIRIN (ASPIRIN CHEWABLE) 81 mg PO DAILY ##0 01/22/16 04/12/24 History Multivitamin 1 tab PO DAILY #0 tabs 01/22/16 04/12/24 History Alendronate Sodium 70 mg PO USEASDIRECTD ##0 01/07/17 04/12/24 History CALCIUM CARBONATE (CALCIUM) 600 mg PO DAILY ##0 01/07/17 04/12/24 History CHOLECALCIFEROL (D 1000) 1,000 inter.unit PO DAILY ##0 01/07/17 04/12/24 History apixaban 5 mg tablet (Eliquis) 5 mg PO BID 04/12/24 04/12/24 History atorvastatin 40 mg tablet 40 mg PO DAILY 04/12/24 04/12/24 History furosemide 20 mg tablet 20 mg PO .3XWK 04/12/24 04/12/24 History metoprolol succinate 25 mg 25 mg PO DAILY 04/12/24 04/12/24 History tablet,extended release 24 hr sertraline 100 mg tablet 150 mg PO QAM 04/12/24 04/12/24 History trospium 60 mg capsule,extended 60 mg PO QAM 04/12/24 04/12/24 History release 24 hr Patient History Surgical History (Updated 04/12/24 @ 12:45 by Julissa Pacheco PA-C) History of sleeve gastrectomy History of lumpectomy of both breasts History of laminectomy Social History Smoking Status: Former smoker Feels Safe at Home: Yes Physical Exam Physical Exam: Tachycardic, ill-appearing Constitutional: well developed and well nourished Neck: neck nontender Respiratory: normal respiratory effort and + tachypneic; no respiratory distress and does not use accessory muscles Cardiovascular: Rate/Rhythm: + tachycardic Vessels: radial pulses present Extremities: no edema Gastrointestinal (Abdomen): Inspection/Auscultation: abdomen normal to inspection (tender on the right flank) Percussion/Palpation: + abdomen tender and abdomen soft; no guarding Musculoskeletal: Head/Neck/Chest: normocephalic and head atraumatic Extremities: extremities normal to inspection Skin: no rashes and no lesions Trauma: no evidence of skin trauma Neurologic: awake; not obtunded Speech / Cognition: normal speech Motor/Sensory: no tremor Psychiatric: Orientation: alert and oriented x 3 Lymphatic: no lymphadenopathy Results & Data Vital Signs (Past 12 Hours) Vital Signs Temp Pulse Resp BP Pulse Ox O2 Del Method 04/12/24 12:21 73/46 L 04/12/24 12:19 64/48 L 04/12/24 12:15 90/73 L 04/12/24 12:12 63/48 L 04/12/24 12:03 109 H 04/12/24 11:54 98 H 21 04/12/24 11:51 103 H 28 H 04/12/24 11:39 94 H 29 H 04/12/24 11:27 98 H 33 H 96 04/12/24 11:12 101 H 25 H 04/12/24 11:09 105 H 25 H 04/12/24 10:51 110 H 21 98 04/12/24 10:47 36.9 C 04/12/24 10:42 137 H 31 H 04/12/24 10:34 99 H 18 107/77 98 Room Air PG Care Time/CCT Total # of Minutes Spent Total Time Spent with Patient: Total time spent is greater than 50% in coordination of care (as documented) at patient's floor/unit and/or counseling patient: Coding Level of Care Code 54200 IN/OBS CONSULT LVL 5,80M Diagnoses Nephrolithiasis N20.0 Emphysematous pyelonephritis N12
[2024-04-12] MEDS ORDERED: STAT IV Infusion **Titration per Protocol STA (13:08)
[2024-04-12] MEDS: SODIUM CHLORIDE 0.9% 500 ML IV ONE (13:25)
[2024-04-12] MEDS ORDERED: LIDOCAINE 2% 2 ML VIAL/AMP(20MG/ML) INFIL ONE ×2 (13:37→13:38)
[2024-04-12] MEDS ORDERED: PROPOFOL IV EMULSION 10 MG/ML 20 ML VIAL IV ONE (13:37)
[2024-04-12] MEDS ORDERED: fentaNYL citrate PF 100 MCG/2 ML VIAL ONE (13:38)
[2024-04-12] MEDS: LACTATED RINGER'S 1,000 ML IV SCH (14:02)
--- NOTE | 2024-04-12 14:03 | Anesthesiology Consultation ---
Date of Service April 12, 2024 Assessment & Plan Chart Review Chart Review: Acceptable Risk for Surgery Consults Requested none History Surgery Operation Date: 04/12/24 11:30 Proposed Procedures p Cystoscopy, Right Ureteral Stent Placement - Jose Leo MD Height/Weight Height: 5 ft 6 in Weight: 100.8 kg Allergies Allergy/AdvReac Type Severity Reaction Status Date / Time codeine AdvReac Mild ITCHING Verified 04/12/24 13:57 Medications Home Medications Medication Instructions Recorded Confirmed Last Taken ASPIRIN (ASPIRIN CHEWABLE) 81 mg PO DAILY ##0 01/22/16 04/12/24 Unknown Multivitamin 1 tab PO DAILY #0 tabs 01/22/16 04/12/24 Unknown Alendronate Sodium 70 mg PO USEASDIRECTD ##0 01/07/17 04/12/24 Unknown CALCIUM CARBONATE (CALCIUM) 600 mg PO DAILY ##0 01/07/17 04/12/24 Unknown CHOLECALCIFEROL (D 1000) 1,000 inter.unit PO DAILY ##0 01/07/17 04/12/24 Unknown apixaban 5 mg tablet (Eliquis) 5 mg PO BID 04/12/24 04/12/24 Unknown atorvastatin 40 mg tablet 40 mg PO DAILY 04/12/24 04/12/24 Unknown furosemide 20 mg tablet 20 mg PO .3XWK 04/12/24 04/12/24 Unknown metoprolol succinate 25 mg 25 mg PO DAILY 04/12/24 04/12/24 Unknown tablet,extended release 24 hr sertraline 100 mg tablet 150 mg PO QAM 04/12/24 04/12/24 Unknown trospium 60 mg capsule,extended 60 mg PO QAM 04/12/24 04/12/24 Unknown release 24 hr Active Medications Generic Name Dose Route Start Last Admin Trade Name Freq PRN Reason Stop Dose Admin Lactated Ringer's 1,000 mls @ 15 mls/hr 04/12/24 14:15 04/12/24 14:02 Lr IV 05/12/24 14:14 15 mls/hr .Q24H MARY Administration NPO Date Last Intake of Fluids: 04/12/24 Time Last Intake of Fluids: 09:00 Last Intake of Fluids Comment: water Date Last Intake of Solids: 04/10/24 Past Surgical History Surgical History (Updated 04/12/24 @ 12:45 by Julissa Pacheco PA-C) History of sleeve gastrectomy History of lumpectomy of both breasts History of laminectomy Social History Smoking Status: Former smoker Physical Exam Vital Signs Last Vital Signs Temp 36.7 C 04/12/24 13:45 Pulse 101 H 04/12/24 13:45 Resp 20 04/12/24 13:45 BP 73/52 L 04/12/24 13:45 Pulse Ox 77 L 04/12/24 13:45 O2 Del Method Room Air 04/12/24 13:45 Testing Laboratory Results 04/12/24 10:42 04/12/24 10:42 PT 15.6 Seconds (9.0-12.0) H 04/12/24 10:42 INR 1.5 (0.9-1.1) H 04/12/24 10:42 APTT 37 Seconds (21-31) H 04/12/24 10:42
[2024-04-12] MEDS ORDERED: ePHEDrine sulfate 50 MG/ML AMP IV PRN (14:04)
[2024-04-12] MEDS ORDERED: fentaNYL citrate PF 100 MCG/2 ML VIAL IV PRN (14:04)
[2024-04-12] MEDS ORDERED: ATROPINE SULFATE 0.1 MG/ML 10ML SYR IV PRN (14:04)
[2024-04-12] MEDS ORDERED: PHENYLEPHRINE 100MCG/ML 10ML SYR IV ONE (14:30)
--- NOTE | 2024-04-12 14:32 | Operative Report ---
PG Post Operative Report Pre & Post Diagnosis Operation Date: 04/12/24 11:30 Pre-Op Diagnosis: Nephrolithiasis Emphysematous pyelonephritis Post-Op Diagnosis: Nephrolithiasis Emphysematous pyelonephritis I identified the patient and participated in the time-out.: Yes Procedure Operation Date: 04/12/24 11:30 Actual Procedures p Cystoscopy, Right Ureteral Stent Placement(Right) - Jose Leo MD Surgeon Jose Leo MD Matcher none Estimated Blood Loss 0 Findings Consistent with Post-Op Diagnosis Specimens none Description of Procedure The patient was identified in the preoperative holding area, appropriate informed consents were reviewed and completed and the patient was transferred to the operative suite. Upon arrival, appropriate antibiotics and anesthesia were administered and the patient was placed in dorsal lithotomy position and prepped and draped in sterile fashion. To be the case I passed a 21 [place] cystoscope with 30 degree lens. Inspection revealed a relatively healthy bladder but very purulent urine. I irrigated the bladder several times before inspecting. Inspection revealed healthy appearing mucosa and ureteral orifices in orthotopic position. I cannulated the right UO with a sensor wire which advanced the kidney without difficulty. I initially pl aced a 6 [place] by 24 cm stent but this wire was in the upper pole and it did not curl as I positioned the stent. I withdrew the stent and reposition the wire into the lower pole and saw good curl in the kidney as well as the bladder once the stent was deployed. I concluded the case and she was reversed of anesthesia and taken to the intensive care unit in stable condition. There were no complications I attest to the content of the Intraoperative Record and any orders documented therein. Any exceptions are noted below.
[2024-04-12] MEDS: NOREPINEPHRINE/D5W 4 MG/250 ML PLCT IV SCH (15:00)
--- NOTE | 2024-04-12 15:13 | Anesthesiology Progress Note ---
Date of Service April 12, 2024 Anesthesia Post Procedure Vital Signs Vital Signs: Temp Pulse Pulse Resp BP BP Pulse Ox 04/12/24 14:50 92 H 24 77/53 L 100 04/12/24 14:42 36.9 C 100 H 22 114/98 96 04/12/24 14:04 127/105 H 04/12/24 14:02 93/69 L 04/12/24 14:00 95/70 L 04/12/24 13:58 77/51 L 04/12/24 13:56 93/62 L 04/12/24 13:54 85/61 L 04/12/24 13:52 74/51 L 04/12/24 13:48 36.7 C 101 H 20 73/52 L 77 L 04/12/24 13:21 82/52 L 04/12/24 13:15 100 H 21 95 04/12/24 13:12 100 H 19 98 04/12/24 13:11 97/50 L 04/12/24 13:03 84/64 L 04/12/24 12:54 103 H 22 04/12/24 12:51 117 H 18 04/12/24 12:24 99 H 28 H 98 04/12/24 12:21 73/46 L 04/12/24 12:19 64/48 L 04/12/24 12:15 90/73 L 04/12/24 12:12 63/48 L 04/12/24 12:03 109 H 04/12/24 11:54 98 H 21 04/12/24 11:51 103 H 28 H 04/12/24 11:39 94 H 29 H 04/12/24 11:27 98 H 33 H 96 04/12/24 11:12 101 H 25 H 04/12/24 11:09 105 H 25 H 04/12/24 10:51 110 H 21 98 04/12/24 10:47 36.9 C 04/12/24 10:42 137 H 31 H 04/12/24 10:34 99 H 18 107/77 98 O2 Del Method O2 Flow Rate 04/12/24 14:50 Oxymask 6 04/12/24 14:42 Oxymask 6 04/12/24 14:04 04/12/24 14:02 04/12/24 14:00 04/12/24 13:58 04/12/24 13:56 04/12/24 13:54 04/12/24 13:52 04/12/24 13:48 Room Air 04/12/24 13:21 04/12/24 13:15 04/12/24 13:12 04/12/24 13:11 04/12/24 13:03 04/12/24 12:54 04/12/24 12:51 04/12/24 12:24 04/12/24 12:21 04/12/24 12:19 04/12/24 12:15 04/12/24 12:12 04/12/24 12:03 04/12/24 11:54 04/12/24 11:51 04/12/24 11:39 04/12/24 11:27 04/12/24 11:12 04/12/24 11:09 04/12/24 10:51 04/12/24 10:47 04/12/24 10:42 04/12/24 10:34 Room Air Transfer of Care Handoff Completed per policy Notes Mental Status: alert / awake / arousable and participated in evaluation Patient Amnestic to Procedure: Yes Nausea / Vomiting: adequately controlled Pain: adequately controlled Airway Patency, RR, SpO2: stable & adequate BP & HR: stable & adequate (pt diagnosed uroseptic with hypotension on arrival to holding area. Treated with IV phenylephrine with adequate response. Had1 liter of LR in OR; received 3 liters crystalloid total since being admitted. Norepinephrine infusion started in PACU. For admission to SICU.) Hydration State: stable & adequate Anesthetic Complications: no major complications apparent
--- NOTE | 2024-04-12 15:46 | Fluoroscopy Report ---
FL KUB CLINICAL HISTORY: RIGHT STENT PLACEMENT COMPARISON STUDY: None. FLUOROSCOPY TIME: 12 seconds FLUOROSCOPY IMAGES: 3 Ka,r: 4.2 mGy FINDINGS: Fluoroscopic spot images demonstrate a guidewire and stent within the right renal collectin g system. IMPRESSION: Fluoroscopic assistance as above. ACT 112: Negative or not required by law. Electronically signed by: Boy Abel M.D. 04/12/2024 3:45 PM
[2024-04-12] MEDS ORDERED: POLYETHYLENE (MIRALAX) 17 GM PACK PO PRN (15:53)
[2024-04-12] MEDS ORDERED: ONDANSETRON INJ 2 MG/ML 2 ML VIAL IV PRN (15:53)
--- NOTE | 2024-04-12 16:25 | Nephrology Consultation ---
Date of Consultation April 12, 2024 Assessment & Plan (1) NATALIO (acute kidney injury): Stage III acute kidney injury oliguria status unknown. Baseline creatinine 1 in 2023. Favor ischemic ATN in the setting of septic shock though obstructive process also possible. Severe lactic acidosis, though lactate levels improving. Strict intake and output Continue pressors to maintain MAP greater than 60; continue normal saline as tolerated. This is an acceptable IV fluid for now though may want to consider bicarb rich fluids depending on labs in the morning Continue avoidance of NSAIDs, other nephrotoxins, and, unless lifesaving IV contrast Daily basic metabolic panel Would minimize Ditropan dose frequency/use with caution Trend CK Defer to primary service and critical care when to involve cardiology No indication for emergent dialysis but cannot rule out the need this admission (2) Emphysematous pyelonephritis: -Follow-up pending cultures Continue Zosyn Continue pressors and normal saline at current 125 mL hourly rate; she is already had 2 L of saline as well (3) Right renal mass: For outpatient workup; follows with with [facility] urology and well-known to them; stable in admission imaging Plan Care coordinated with Drs. Vasquez and Kamla. Patient at high risk for morbidity and mortality with stage III NATALIO and septic shock; medical complexity high. History of Present Illness Reason for Consultation: NATALIO, presence of ESRD, lactic acidosis Requesting Physician: Dr. Cason Attending Physician: Yvan Cason MD History of Present Illness 78-year-old female whom I am asked to evaluate for acute kidney injury in the setting of ESRD with lactic acidosis was admitted this afternoon for septic shock in the setting of emphysematous pyelonephritis with an obstructing right ureteropelvic junction stone. 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 Most recent stone pathology showed 80% calcium oxalate stone, 10% carbonate apatite stone, 10% uric acid. Has not had metabolic stone workup. Right renal mass was picked up on imaging July 2023. At outpatient urology visit November 2023, plan was for MRI of the kidney but this has not yet been done. Her baseline creatinine in 2023 is 1.0, up from 0.9 in previous years. She presented after a fall at home with 4 days of nausea and diarrhea. Completed antibiotics for multi microbial urine culture mid-March. Admission workup remarkable for presenting lactate of 8.1, troponin 748, creatinine 3. No evidence of facial bone fracture or acute intracranial pathology or acute cardiopulmonary process on imaging. She was started on Zosyn and Levophed in the ER, the latter because of systolics consistently in the 60s to 80s in the setting of A-fib with RVR. She was taken to the OR for emergent right ureteral stent placement. Extreme urinary purulence was noted during the procedure. She was transferred to the ICU postprocedure for monitoring. Currently on downtrending dose of norepinephrine and sodium chloride at 125 mL hourly. Endorses diffuse bodyaches. Denies shortness of breath or palpitations. Some mild nausea and definite lack of appetite. No rash. No edema. No chest pain. Has not voided since urology procedure earlier today. Allergies Allergy/AdvReac Type Severity Reaction Status Date / Time codeine AdvReac Mild ITCHING Verified 04/12/24 13:57 Home Medications Medication Instructions Recorded Confirmed Type ASPIRIN (ASPIRIN CHEWABLE) 81 mg PO DAILY ##0 01/22/16 04/12/24 History Multivitamin 1 tab PO DAILY #0 tabs 01/22/16 04/12/24 History Alendronate Sodium 70 mg PO USEASDIRECTD ##0 01/07/17 04/12/24 History CALCIUM CARBONATE (CALCIUM) 600 mg PO DAILY ##0 01/07/17 04/12/24 History CHOLECALCIFEROL (D 1000) 1,000 inter.unit PO DAILY ##0 01/07/17 04/12/24 History apixaban 5 mg tablet (Eliquis) 5 mg PO BID 04/12/24 04/12/24 History atorvastatin 40 mg tablet 40 mg PO DAILY 04/12/24 04/12/24 History furosemide 20 mg tablet 20 mg PO .3XWK 04/12/24 04/12/24 History metoprolol succinate 25 mg 25 mg PO DAILY 04/12/24 04/12/24 History tablet,extended release 24 hr sertraline 100 mg tablet 150 mg PO QAM 04/12/24 04/12/24 History trospium 60 mg capsule,extended 60 mg PO QAM 04/12/24 04/12/24 History release 24 hr Patient History Medical History Right renal mass Urinary calculus Cyst of left ovary Paraesophageal hiatal hernia Nocturnal enuresis Stress incontinence History of basal cell carcinoma Diverticulitis History of radiation therapy History of breast cancer Osteoporosis Recurrent UTI Urge incontinence of urine Heart murmur Paroxysmal A-fib Surgical History History of repair of hiatal hernia History of partial mastectomy of right breast History of laparoscopic cholecystectomy History of sleeve gastrectomy History of lumpectomy of both breasts History of laminectomy Social History Smoking Status: Former smoker Hx Alcohol Use: Yes Alcohol type: wine Hx Substance Use: No Preferred Language: Polish Communication Ability: 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 Beliefs That Will Affect Care: None Current Living Situation: Alone Feels Safe at Home: Yes Review of Systems 2 Review of Systems: All systems reviewed & are unremarkable except as noted in HPI & below Physical Exam 2 Constitutional: well developed, well nourished and cooperative (Sitting in bed on room air); no acute distress Eyes: EOM intact bilaterally ENMT: Ears: no external ear abnormality Nose: no external nose abnormality Mouth: + dry oral mucous membranes Neck: no nuchal rigidity Respiratory: normal respiratory effort Auscultation: + diminished lung sounds Cardiovascular: Rate/Rhythm: + tachycardic and + irregularly irregular E xtremities: no edema Gastrointestinal (Abdomen): Inspection/Auscultation: normal bowel sounds P ercussion/Palpation: abdomen soft; abdomen nontender Musculoskeletal: Extremities: strength 5/5 throughout Skin: no rashes, warm and dry Neurologic: jacobson, fluent speech, no tremor Psychiatric: Orientation: alert and oriented x 3 Results & Data Vital Signs (Past 12 Hours) Vital Signs Temp Pulse Pulse Resp BP BP Pulse Ox 04/12/24 15:20 96 H 22 106/66 95 04/12/24 15:10 37.5 C 106 H 24 101/79 94 04/12/24 15:00 90 22 74/53 L 97 04/12/24 14:50 92 H 24 77/53 L 100 04/12/24 14:42 36.9 C 100 H 22 114/98 96 04/12/24 14:04 127/105 H 04/12/24 14:02 93/69 L 04/12/24 14:00 95/70 L 04/12/24 13:58 77/51 L 04/12/24 13:56 93/62 L 04/12/24 13:54 85/61 L 04/12/24 13:52 74/51 L 04/12/24 13:48 36.7 C 101 H 20 73/52 L 77 L 04/12/24 13:21 82/52 L 04/12/24 13:15 100 H 21 95 04/12/24 13:12 100 H 19 98 04/12/24 13:11 97/50 L 04/12/24 13:03 84/64 L 04/12/24 12:54 103 H 22 04/12/24 12:51 117 H 18 04/12/24 12:24 99 H 28 H 98 04/12/24 12:21 73/46 L 04/12/24 12:19 64/48 L 04/12/24 12:15 90/73 L 04/12/24 12:12 63/48 L 04/12/24 12:03 109 H 04/12/24 11:54 98 H 21 04/12/24 11:51 103 H 28 H 04/12/24 11:39 94 H 29 H 04/12/24 11:27 98 H 33 H 96 04/12/24 11:12 101 H 25 H 04/12/24 11:09 105 H 25 H 04/12/24 10:51 110 H 21 98 04/12/24 10:47 36.9 C 04/12/24 10:42 137 H 31 H 04/12/24 10:34 99 H 18 107/77 98 O2 Del Method O2 Flow Rate 04/12/24 15:20 Room Air 04/12/24 15:10 Room Air 04/12/24 15:00 Oxymask 3 04/12/24 14:50 Oxymask 6 04/12/24 14:42 Oxymask 6 04/12/24 14:04 04/12/24 14:02 04/12/24 14:00 04/12/24 13:58 04/12/24 13:56 04/12/24 13:54 04/12/24 13:52 04/12/24 13:48 Room Air 04/12/24 13:21 04/12/24 13:15 04/12/24 13:12 04/12/24 13:11 04/12/24 13:03 04/12/24 12:54 04/12/24 12:51 04/12/24 12:24 04/12/24 12:21 04/12/24 12:19 04/12/24 12:15 04/12/24 12:12 04/12/24 12:03 04/12/24 11:54 04/12/24 11:51 04/12/24 11:39 04/12/24 11:27 04/12/24 11:12 04/12/24 11:09 04/12/24 10:51 04/12/24 10:47 04/12/24 10:42 04/12/24 10:34 Room Air Laboratory Results 04/12/24 10:42 04/12/24 10:[address] abdomen pelvis no contrast Lung bases: The heart is top normal for projection noting trace pericardial effusion. There is diminished attenuation of the cardiac blood pool as compared to the myocardium suggesting anemia. There are small right and trace left pleural effusions with dependent atelectasis. Liver: The unenhanced liver is normal in size, contour, and attenuation. There is no intrahepatic biliary ductal dilatation. Gallbladder: Surgically absent noting clips in the gallbladder fossa. Spleen: Normal in size and attenuation. Pancreas: The unenhanced pancreas is atrophic and grossly unremarkable. Adrenal glands: Unremarkable. Kidneys: The unenhanced kidneys demonstrate mild cortical atrophy. There is a 15 mm obstructing calculus at the right ureteropelvic junction seen on axial image #166. This causes moderate right hydronephrosis. There is gas within the right renal collecting system. There are at least 4 additional nonobstructing right renal calculi which measure up to 4 mm. There is a 10 mm calculus in the left renal pelvis, with 2 additional left lower pole calculi measuring up to 3 mm. There is no left ureteral stone or left-sided hydronephrosis. Urothelial thickening is seen in the renal pelvis bilaterally with surrounding inflammation. There is asymmetric right-sided perinephric stranding. A 2.4 cm complex exophytic cyst is again noted on the right. Abdominal vasculature: The abdominal aorta is normal in course and caliber noting mild to moderate atherosclerotic calcification. Stomach and bowel: There is a moderate hiatal hernia. Postsurgical change is seen in the stomach. There is mild to moderate colonic diverticulosis without CT evidence of acute diverticulitis. No bowel obstruction is identified. The appendix is well-visualized and normal. Peritoneum: There is a small volume of pelvic ascites. No intraperitoneal free air is seen. There is a fat-containing umbilical hernia. Lymphadenopathy: None. Pelvic viscera: The bladder is decompressed and appears thick-walled. There is intraluminal gas. The uterus is diminutive versus surgically absent. A 5 cm cystic lesion is again seen in the left ovary. Skeletal structures: The skeletal structures are osteopenic. There is moderate lumbosacral spondylosis. Postsurgical changes noted at L5-S1. No lytic or blastic lesions are seen. IMPRESSION: 1. There is a 15 mm obstructing calculus at the right ureteropelvic junction. This causes moderate right hydronephrosis. 2. Additional bilateral renal calculi as above. 3. The bladder appears thick walled and contains intraluminal gas. There is also gas within the right renal collecting system. Correlate with clinical findings and urinalysis for evidence of urinary tract infection. 4. Urothelial thickening is seen within the renal pelvis bilaterally. Perinephric stranding is asymmetrically greater on the right. 5. Small right and trace left pleural effusions. 6. Cardiomegaly and hiatal hernia. 7. Small volume pelvic ascites.
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
--- OUTSIDE RECORDS SUMMARY | 2024-04-12 19:12 | External Medical Summary ---
Author Name Unknown Address Unknown Organization [id number]:LAB[facility]ATORY [facility] [address] [place] [address] Laboratory Report Ordering Provider Test Date Status KADE BROOKS 02/20/2024 12:37:16 Final Observation Date Value Abnormality Reference (Units ) Status WBC, Total 02/20/2024 12:37:16 6.80 4.00-10.8 0 (K/uL) Final RBC 02/20/2024 12:37:16 4.38 3.85-5.15 (M/uL) Final Hemoglobin 02/20/2024 12:37:16 12.4 12.0-15.3 (g/dL) Final HCT 02/20/2024 12:37:16 39.2 36.0-45.2 (%) Final MCV 02/20/2024 12:37:16 89.5 81.5-97.5 (fL) Final MCH 02/20/2024 12:37:16 28.3 27.0-34.0 (pg) Final MCHC 02/20/2024 12:37:16 31.6 32.0-36.0 (g/dL) Final RDW 02/20/2024 12:37:16 15.4 11.5-15.5 (%) Final Platelets 02/20/2024 12:37:16 162 140-400 (K /uL) Final MPV 02/20/2024 12:37:16 12.9 6.6-11.1 ( fL) Final Performing Location LAB[facility]ORY [facility] [address] [place] [address]
--- OUTSIDE RECORDS SUMMARY | 2024-04-12 19:12 | External Medical Summary ---
Author Name Unknown Address Unknown Organization [id number]:LABORATORY [facility] - [facility] [address] [facility] [address] Laboratory Report Ordering Provider Test Date Status CORRIE ULLOA 03/25/2024 16:23:58 Final Observation Date Value Abnormality Reference (Units ) Status Bacteria identified in Specimen by Culture 03/25/2024 16:23:58 [id number]^ESCHE RICHIA COLI Abnormal Final >100,000 colonies/mL Escheri ginny coli Bacteria identified in Specimen by Culture 03/25/2024 16:23:58 [id number]^AEROCOCCUS URINAE Abnormal Final >100,000 colonies/mL Aerococ cus urinae
The genus species identification occurred by mass spectrometry and its performance characteristics were determined by [employer]. It has not been cleared or approved by the FDA.
The laboratory is regulated under CLIA as qualified to perform high-complexity testing. This test is used for clinical purposes. It should not be regarded as investigational or for research.
Routine antimicrobial susceptibility testing methods and standardized interpretation criteria are not available for Aerococcus species. Aerococcus urinae has been described as susceptible to penicillin, amoxicillin and nitrofurantoin, but resistant to sulfonamides. Performing Location LABORATORY [place] [address] [place] [address] Ordering Provider Test Date Status CORRIE ULLOA 03/25/2024 16:23:58 Final Observation Date Value Abnormality Reference (Units ) Status Ampicillin 03/25/2024 16:23:58 >=32 Resistant Final Ampicillin + Sulbactam 03/25/2024 16:23:58 16 Intermediate Final Cefazolin 03/25/2024 16:23:58 <=4 Susceptible Final Cefepime susceptibility 03/25/2024 16:23:58 <=1 Susceptible Final Ceftriaxone suceptibility 03/25/2024 16:23:58 <=1 Susceptible Final Ciprofloxacin 03/25/2024 16:23:58 <=0.25 Susceptible Final Due to serious side effects, the FDA has advised against using Ciprofloxacin to treat uncomplicated UTIs and respiratory tract infections unless there are no alternative treatment options. Gentamicin susceptibility 03/25/2024 16:23:58 <=1 Susc eptible Final Levofloxacin susceptibility 03/25/2024 16:23:58 0.25 Gallo sceptible Final Due to serious side effects, the FDA has advised against using Levofloxacin to treat uncomplicated UTIs and respiratory tract infections unless there are no alternative treatment options. Nitrofurantoin susceptibility 03/25/2024 16:23:58 <=16 Susceptible Final Piperacillin + Tazobactamsusceptibility 03/25/2024 16:23:58 <=4 Susceptible Final TMP-SMZ susceptibility 03/25/2024 16:23:58 >=320 Resista nt Final Test: Culture, Urine, Quanti tative
Specimen Source: Urine, Clean Catch
Specimen Type: Urine
Specimen Date: 03/25/2024 1623
Result Date: 03/27/2024 0957
Result Status: Final result
Abnormal: Yes
Resulting Lab: [facility]ORY [facility]
[address] [facility] [place]
[facility] [address]

CULTURE

>100,000 colonies/mL Escherichia coli (Abnormal)

>100,000 colonies/mL Aerococcus urinae (Abnormal)

The genus species identification occurred by mass spectrometry and its
performance characteristics were determined by [employer]. It has not been cleared or approved by the FDA.
The laboratory is regulated under CLIA as qualified to perform
high-complexity testing. This test is used for clinical purposes. It should
not be regarded as investigational or for research.
Routine antimicrobial susceptibility testing methods and standardized
interpretation criteria are not available for Aerococcus species.
Aerococcus urinae has been described as susceptible to penicillin,
amoxicillin and nitrofurantoin, but resistant to sulfonamides.

SUSCEPTIBILITY

Escherichia coli
METHOD MICROBROTH DILUTIONS

AMPICILLIN >=32 Resistant
AMPICILLIN/SULBACTAM 16 Intermediate
CEFAZOLIN <=4 Susceptible
CEFEPIME <=1 Susceptible
CEFTRIAXONE <=1 Susceptible
CIPROFLOXACIN <=0.25 Susceptible
[1]
GENTAMICIN <=1 Susceptible
LEVOFLOXACIN 0.25 Susceptible
[2]
NITROFURANTOIN <=16 Susceptible
PIPERACILLIN TAZOBACTAM <=4 Susceptible
TRIMETH/SULFAMETHOXAZOLE >=320 Resistant

[1] Due to serious side effects, the FDA has advised against using
Ciprofloxacin to treat uncomplicated UTIs and respiratory tract infections
unless there are no alternative treatment options.

[2] Due to serious side effects, the FDA has advised against using
Levofloxacin to treat uncomplicated UTIs and respiratory tract infections
unless there are no alternative treatment options.

null Performing Location LABORATORY [facility] - [address] [facility] [address]
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
--- OUTSIDE RECORDS SUMMARY | 2024-04-12 19:12 | External Medical Summary | Summary of Care ---
Author Name Unknown Organization [facility] Address [address] [place] [address] Phone [phone] Care Team Providers Care Vice President Corporate Communications Name Role Phone Holger Vallecillo DO Primary Care Provider [phone] Reason for Visit * Reason Comments Consultation * Evaluate & Treat - Unlimited Visits (Within 30 days (routine)) - Authorized Specialty Diagnoses / Procedures Referred By Contact Referred To Contact Cardiac Electrophysiology / Cardiology Diagnoses Persistent atrial fibrillation (HCC) Gross hematuria Gloria Spangler DO [address] [place] [address] Referral ID Status Reason Start Date Expiration Date Visits Requested Visits Authorized [id number] Authorized Specialty Services Required 12/21/[phone] Encounter Details Date Type Department Care Team (Late st Contact Info) Description 03/09/2024 10:00 AM EDT Office Visit Cardiology, [facility] [address] [place] [address] Lea Carroll IV, MD [address] [place] [address] Persistent atrial fibrillation (HCC)* Allergies Active Allergy Reactions Criticality Noted Date Comments Ciprofloxacin 12/29/2019 ?hives, single lip swelling, was on cipro and flagyl together Codeine Flushing Low 08/30/2015 Metronidazole 12/29/2019 ?hives, single lip swelling, was on cipro and flagyl together documented as of this encounter (statuses as of 03/09/2024) Medications Medication Sig Dispensed Refills Start Date [...] and 1 Tablet before bedtime. 0 Active [place]-3 Fatty Acids (FISH OIL) 1000 MG Capsule [...] DAY 180 Tablet 0 02/18/2024 Active Nystatin 565912 UNIT/GM External OintmentIndications:S car APPLY TO AFFECTED SKIN FOLDS NIGHTLY DURING FLARES 30 g 0 02/18/2024 Active documented as of this encounter (statuses as of 03/09/2024) Active Problems Problem Noted Date Diagnosed Date [...] as of this encounter (statuses as of 03/09/2024) Resolved Problems Problem Noted Date Diagnosed Date Resolved Date Prediabetes 12/20/2018 11/19/2023 Overview: Per Prediabetes protocol #1 documented as of this encounter (statuses as of 03/09/2024) Immunizations Name Administration Dates Next Due COVID-19 [...] on file documented as of this encounter Last Filed Vital Signs Vital Sign Reading Time Taken Comments Blood Pressure 124/60 03/09/2024 10:18 AM EDT Pulse 80 03/09/2024 10:18 AM EDT Temperature - - Respiratory Rate 16 03/09/2024 10:18 AM EDT Oxygen Saturation - - Inhaled Oxygen Concentration - - Weight 99.3 kg (219 lb) 03/09/2024 10:18 AM EDT Height - - Body Mass Index 37.01 07/14/2023 2:24 PM EDT documented in this encounter Functional Status Functional Status Response [...] No 07/10/2020 documented as of this encounter Progress Notes * Lea Carroll IV, MD - 03/09/2024 10:21 AM EDT CARDIOLOGY OUTPATIENT CLINIC NOTE PCP: HOLGER VAL[place]CI[place]O [place] [address] [phone] Ref: GLORIA SPANGLER[[id number]] [address] [place] [address] (office) [phone] (fax) History of Present Illness: Ms. Valentino has a history of permanent atrial fibrillation. She has been referred by Dr. Billy Spangler to discuss implantation of a Watchman device. History of Present Illness: Ms. Valentino was first diagnosed with atrial fibrillation in December of 2019 when vacationing in [place]. She had no symptoms but was alerted by her Apple watch. Treatment with apixaban was initiated. Since then, she has converted to permanent atrial fibrillation. She denies any significant symptoms such as palpitations or tiredness/fatigue. She does note increased dyspnea on exertion which has become increasingly problematic over the past several years, but the onset of the dyspnea predated the onset of atrial fibrillation.. She recently presented with recurrent bladder infections and she was found to have kidney stones. She underwent removal of the kidney stones but has continued to have significant hematuria. The hematuria has been quite significant over the past month. She denies any other type of bleeding such as gastrointestinal, intracranial, or epistaxis. Because of the persistent hematuria and the need for anticoagulation for stroke prevention, she has been referred to discuss implantation of a Watchman device. Past Medical History: Diagnosis Date A-fib (HCC) permanent per pt Breast CA (HCC) ductal, stage 0, s/p radiation Breast cancer (HCC) 2006 Right breast, Stage 0-DCIS Depression past hx Diverticulitis flares 1-2x/year Kidney stone Past Surgical History: Procedure Laterality Date BREAST BIOPSY Left Benign COLONOSCOPY, DIAGNOSTIC (RECTUM) 06/10/2018 normal, repeat 10 yrs/COLONOSCOPY FLEXIBLE PROXIMAL DIAGNOSTIC performed by Clary Lee DO at ENDOSCOPY [facility] COLONOSCOPY, DIAGNOSTIC (RECTUM) 11/15/2019 normal, repeat 10 yrs/COLONOSCOPY FLEXIBLE PROXIMAL DIAGNOSTIC performed by Clary Lee DO at ENDOSCOPY [facility] COLONOSCOPY, DIAGNOSTIC (RECTUM) 07/24/2023 diverticulosis/biopsies normal/COLONOSCOPY FLEXIBLE PROXIMAL DIAGNOSTIC performed by Clary Lee DO at ENDOSCOPY [facility] CYSTO/URETERO W/LITHOTRIPSY Left 04/01/2023 CYSTOURETHROSCOPY URETEROSCOPY WITH LITHOTRIPSY AND STENT INSERTION performed by Everton Long MD at OR [facility] EGD, FLEXIBLE, DIAGNOSTIC 09/25/2016 normal/ESOPHAGOGASTRODUODENOSCOPY (EGD), FLEXIBLE, TRANSORAL, DIAGNOSTIC performed by Clary Lee DO at ENDOSCOPY [facility] EGD, FLEXIBLE, DIAGNOSTIC 11/13/2017 tortuous esophagus, hiatal hernia/ESOPHAGOGASTRODUODENOSCOPY (EGD), FLEXIBLE, TRANSORAL, DIAGNOSTICperformed by Clary Lee DO at ENDOSCOPY [facility] EGD, FLEXIBLE, DIAGNOSTIC 06/10/2018 tortuous esophagus, hiatal hernia/ESOPHAGOGASTRODUODENOSCOPY (EGD), FLEXIBLE, TRANSORAL, DIAGNOSTICperformed by Clary Lee DO at ENDOSCOPY [facility] EGD, FLEXIBLE, DIAGNOSTIC 11/15/2019 Tortuous esophagus, hiatal hernia / ESOPHAGOGASTRODUODENOSCOPY (EGD), FLEXIBLE, TRANSORAL, DIAGNOSTIC performed by Clary Lee DO at ENDOSCOPY [facility] EGD, FLEXIBLE, DIAGNOSTIC N/A 07/10/2020 ESOPHAGOGASTRODUODENOSCOPY (EGD), FLEXIBLE, TRANSORAL, DIAGNOSTIC performed by Keith Bryant MD at OR [facility] EGD, FLEXIBLE, DIAGNOSTIC 07/24/2023 normal/ESOPHAGOGASTRODUODENOSCOPY (EGD), FLEXIBLE, TRANSORAL, DIAGNOSTIC performed by Clary Lee DO at ENDOSCOPY [facility] HIATAL HERNIA REPAIR, LAP W/OUT MESH 2010 LAPAROSCOPY; CHOLECYSTECTOMY 2010 MAMMOGRAM BREAST NEEDLE BIOPSY CORE RIGHT Right 2007 DCIS MASTECTOMY, PARTIAL Right 2007 MISCELLANEOUS ORDER ([facility] ONLY) 2011 knee replacement b/l MISCELLANEOUS ORDER ([facility] ONLY) 2012 back surgery, Coflex procedure, L4-L5 MISCELLANEOUS ORDER ([facility] ONLY) mohs PARAESOPHAGEAL HERNIA REPAIR, LAP W/O MESH N/A 07/10/2020 LAPAROSCOPIC PARAESOPHAGEAL HERNIA REPAIR WO/ MESH performed by Keith Bryant MD at OR [facility] RADIATION THERAPY MANAGEMENT Right 2007 REMOVE TENDON SHEATH LESION, HAND Right 01/04/2020 EXCISION LESION TENDON SHEATH OR CAPSULE HAND OR FINGER performed by Felice Marin MD at [facility] GASTRECTOMY, LAPROSCOPY 2010 Current Outpatient Medications Medication Sig Dispense Refill Multiple Vitamins-Minerals (MULTIVITAL) Tablet Take 1 Tablet by mouth in the morning. Ascorbic Acid (VITAMIN C) 500 MG CAPS Take 500 mg by mouth 2 times a day. CYANOCOBALAMIN (VITAMIN B-12) 500 MCG Sublingual Tablet Take 1 Tablet by mouth in the morning. Psyllium 0.52 GM Oral Capsule Take 1 Capsule by mouth in the morning. One twijce a day. Calcium Carbonate-Vitamin D 500-5 MG-MCG Oral Tablet Take 1 Tablet by mouth in the morning and 1 Tablet before bedtime. [place]-3 Fatty Acids (FISH OIL) 1000 MG Capsule Take 1 Capsule by mouth in the morning. Take 1 capsule by moouth once daily . Magnesium 250 MG Oral Tablet Take 1 Tablet by mouth in the morning. Prevagen 10 MG Oral Capsule (Apoaequorin) Take by mouth. Vitamin D (Cholecalciferol) 25 MCG (1000 UT) Oral Capsule Take by mouth daily. Ondansetron 4 MG Oral Tablet Disintegrating (Zofran) Place 1 Tablet on tongue every 8 hours as needed for Nausea. dissolve on tongue. 14 Tablet 0 Ondansetron HCl 4 MG Oral Tablet Take 1 Tablet by mouth every 6 hours as needed for Nausea. 30 Tablet 0 Metoprolol Succinate ER 25 MG Oral Tablet Extended Release 24 Hour (toPROL XL) One tablet by mouth daily 90 Tablet 3 Atorvastatin Calcium 40 MG Oral Tablet (Lipitor) TAKE 1 TABLET BY MOUTH EVERY DAY 90 Tablet 1 Sertraline HCl 100 MG Oral Tablet (Zoloft) Take 1.5 Tablets by mouth in the morning. 135 Tablet 3 Trospium Chloride ER 60 MG Oral Capsule Extended Release 24 Hour Take 1 Capsule by mouth in the morning. 90 Capsule 3 Furosemide 20 MG Oral Tablet (Lasix) One tablet by mouth in the morning 3 days per week on Mondays,Wednesdays and Fridays 36 Tablet 3 Eliquis 5 MG Oral Tablet (Apixaban) TAKE 1 TABLET BY MOUTH TWICE A DAY 180 Tablet 0 Nystatin 189791 UNIT/GM External Ointment APPLY TO AFFECTED SKIN FOLDS NIGHTLY DURING FLARES 30 g 0 No current facility-administered medications for this visit. Review of patient's allergies indicates: Allergen Reactions Ciprofloxacin ?hives, single lip swelling, was on cipro and flagyl together Flagyl [Metronidazole] ?hives, single lip swelling, was on cipro and flagyl together Codeine Flushing Social History Tobacco Use Smoking status: Former Current packs/day: 0.00 Average packs/day: 0.5 packs/day for 3.0 years (1.5 ttl pk-yrs) Types: Cigarettes Start date: 1970 Quit date: 1973 Years since quittin.3 Smokeless tobacco: Never Tobacco comments: quit 50 years ago Vaping Use Vaping Use: Never used Substance Use Topics Alcohol use: Yes Comment: occasional wine and mixed drink Drug use: No Family History Problem Relation Age of Onset Breast Cancer Mother 48 Lung cancer Father 57 Breast Cancer Grandmother (Maternal) in her 50s Cancer Brother t2dm, x 2 Blood Disorder Brother Heart Disorder Brother Review of Systems: Constitutional: Negative and No change in weight Neck: Negative and No known carotid artery disease Pulmonary: Negative, No snoring, No history of sleep apnea, No history of pulmonary embolism, No history of COPD, and No history of asthma Cardiac: See HPI GI/Abd: No dysphagia, No abdominal pain, No melana or hematochezia, No significant heartburn, Vascular: No claudication Hematologic: No coagulation disorder, No anemia, and No abnormal bleeding Skin: negative Neurologic: No TIA symptoms, No CVA symptoms, No syncope, No near syncope, and No orthostasis Endocrine No Diabetes OBJECTIVE: BP 124/60 | Pulse 80 | Resp 16 | Wt 99.3 kg (219 lb) | LMP (LMP Unknown) | BMI 37.01 kg/m | BSA 2.13 m Body mass index is 37.01 kg/m. Physical Exam: General: no acute distress Neck: normal jugular venous pulse, no hepatojugular reflux Chest: normal shape and normal respiratory effort Lungs: clear to auscultation and percussion Cardiac Exam: no murmurs gallops or rubs - normal S1, normal S2 pulse irregularly irregular Pulses: The following pulses are normal: carotids Abdomen: abdomen soft and non-tender Extremities: no edema Skin: skin color, texture, turgor are normal Neuro: grossly normal exam Electrocardiogram (reviewed [facility]) - 03/09/2024 atrial fibrillation with a ventricular response rate of70 BPM. Adult Transthoracic Echocardiography Report - 01/11/2024 thickness is mildly increased (concentric). The left ventricular wall motion is normal. The left atrium is severely enlarged. The right atrium is mildly enlarged. Mild aortic valve sclerosis is present. Aortic stenosis is absent. Moderate aortic valve regurgitation is present. Mild mitral regurgitation is present. Moderate tricuspid regurgitation is present. The estimated pulmonary artery systolic pressure is 42 mm Hg (mildly elevated). Compared to the previous study dated 11/27/2022, moderate aortic valve regurgitation is present as compared to mild aortic valve regurgitation. Mild pulmonary hypertension is now noted. IMPRESSION: 1. Permanent atrial fibrillation 2. CHADS-VASc = 4 (or ?5) (age, gender, hypertension,?DM ) 3. Persistent hematuria 4. Valvular heart disease - moderate aortic valve regurgitation - mild mitral regurgitation - moderate tricuspid regurgitation COMMENT:Ms Valentino has persistent atrial fibrillation with a CHADS-VASc score of 5. She has been treated with apixaban for stroke prevention since 2019. Unfortunately she developed nephrolithiasis associated with hematuria and recurrent bladder infections. Despite treating both the nephrolithiasis and recurrent bladder infections, she continues to manifest significant hematuria. She therefore has been referred to discuss implantation of a Watchman device. Ms. Valentino is an appropriate candidate for a Watchman device. With a CHADS VASc score of 5, she clearly meets indications. I discussed the pathophysiology of atrial fibrillation. I discussed the procedure and the risks Implantation of the left atrial appendage occluder would include a intra-procedure transesophageal echocardiogram to assess the anatomy of the left atrial appendage and exclude thrombus. The implantation of the device is preformed under general anesthesia. Following implant, a sixweek course of anticoagulation with apixaban is prescribed followed by a post implantation transesophageal echocardiogram. Once appropriate device placement has been confirmed, clopidogrel and aspirin would be prescribed for 6 months followed by aspirin indefinitely. The successful of the procedureis estimated at 95% and the complication rate is approximately 2% which primarily includes cardiac perforation, device dislodgement, and stroke. Additional risks include vascular injury, bleeding, and rarely . She wishes to proceed. PLAN 1. Arrange for Watchman implantation Lea Carroll IV, MD Cardiology/Electrophysiology Associate documented in this encounter Procedure Notes * Louis Jennings, DO - 03/09/2024 10:32 AM EDTAssociated Order(s): EKG REASON FOR STUDY: NEW PT;NEW PT CONCLUSIONS: Atrial fibrillation with premature ventricular or aberrantly conducted complexes Abnormal ECG When compared with ECG of 14-Jan-2024 10:45, Atrial fibrillation has replaced Sinus rhythm QRS duration has increased Nonspecific T wave abnormality, worse in Inferior leads Nonspecific T wave abnormality no longer evident in Anterior leads Ventricular Rate: 70 Atrial Rate: 110 QRS Duration: 94 QT/QTc: 408/440 ms P-R-T [place]: 0 : 12 : -12 degrees documented in this encounter Nursing Notes * Vernell Fabian LPN - 03/09/2024 10:18 AM EDT Examination Room: 15 Name: Iram Valentino Date of : 1945 Reason for Visit: New pt Problems/Concerns: Discuss watchman Interim Hosp(s): denies Chest Pain/SOB: denies MyChart Discussed: ALREADY ACTIVE Patient was instructed to not get up on the exam table until directed and assisted by their provider; patient is to remain seated in the chair/ wheelchair/ exam table for fall prevention and safety reasons. Patient is aware staff will assist stepping down off exam table with personnel. documented in this encounter Plan of Treatment Upcoming Encounters Date Type Department Care Team (Late st Contact Info) Description 05/25/2024 11:30 AM EDT Imaging Radiology [facility] 1[facility] [address] [facility] [place] [address] 06/07/2024 1:30 PM EDT Office Visit Cardiology, [facility] [address] [facility] [place] [address] Gloria Spangler DO [address] [facility] [place] [address] 06/08/2024 1:30 PM EDT Office Visit Urology, [facility] [address] [facility] [place] [address] Everton Long MD 27 [facility] [address] [place] [address] 10/21/2024 1:30 PM EST Office Visit Dermatology [facility] [address] [place] [address] Chico Mandel MD [facility] [place] [address] Scheduled Procedures Name Priority Associated Diagnoses Date/Ti [...] D LEVEL ONCE IN A LIFETIME-USE SMARTSET# [id number] Completed 02/11/2023, 09/04/2020, 04/26/2019, Additional history exists [...] Not on filedocumented as of this encounter Procedures Procedure Name Priority Date/Time Associated Diagnosis Comments MN ECG ROUTINE ECG W/LEAST 12 LDS W/I&R Routine 03/09/2024 10:32 AM EDT Persistent atrial fibrillation (HCC) documented in this encounter Results * EKG (03/09/2024 10:32 AM EDT) 03/09/2024 10:3 2 AM EDT Narrative Procedure Note Louis Jennings, - 03/09/2024 10:32 AM EDT REASON FOR STUDY: NEW PT;NEW PT CONCLUSIONS: Atrial fibrillation with premature ventricular or aberrantly conductedcomplexes Abnormal ECG When compared with ECG of 14-Jan-2024 10:45, Atrial fibrillation has replaced Sinus rhythm QRS duration has increased Nonspecific T wave abnormality, worse in Inferior leads Nonspecific T wave abnormality no longer evident in Anterior leads Ventricular Rate: 70 Atrial Rate: 110 QRS Duration: 94 QT/QTc: 408/440 ms P-R-T [place]: 0 : 12 : -12 degrees Lea Carroll IV, MD EKG Performing Organization Address City/State/ZIP Co ma Phone Number [facility] C[facility] documented in this encounter Visit Diagnoses Diagnosis Persistent atrial [...] Advance Directives occurred with: Patient Care Teams Vice President Corporate Communications Relationship Specialty Start Date End Date Holger Vallecillo DO [address] [place] [address] PCP - General Family Medicine 08/30/15 documented as of this encounter"
--- OUTSIDE RECORDS SUMMARY | 2024-04-12 19:13 | External Medical Summary | Summary of Care ---
Author Name Unknown Organization [facility] Address [address] [facility] [address] Phone [phone] Care Team Providers Care Performance Test Consultant Name Role Phone Arlyn Vallecillo DO Primary Care Provider [phone] Encounter Details Date Type Department Care Team (Late st Contact Info) Description 12/11/2023 Telephone Urology Sam Doan [address] [place] [address] Everton Long MD [address] [place] [address] [place] [address] Allergies Active Allergy Reactions Criticality Noted Date Comments Ciprofloxacin 12/29/2019 ?hives, single lip swelling, was on cipro and flagyl together Metronidazole 12/29/2019 ?hives, single lip swelling, was on cipro and flagyl together documented as of this encounter (statuses as of 12/11/2023) Medications Medication Sig Dispensed Refills Start Date [...] and 1 Tablet before bedtime. 0 Active [place]-3 Fatty Acids (FISH OIL) 1000 MG Capsule [...] Active Ondansetron 4 MG Oral Tablet Disintegrating (Zofran)Indications: Nausea without vomiting Place 1 Tablet on tongue every 8 hours as needed for Nausea. dissolve on tongue. 14 Tablet 0 03/15/2023 Active Omeprazole 20 MG Oral Capsule Delayed Release (PriLOSEC) TAKE 1 CAPSULE BY MOUTH DAILY FOR 90 DAYS AFTER SURGERY 90 Capsule 1 04/27/2023 Active Additional Information Patient not taking.Reported on 07/14/2023 Ondansetron HCl 4 MG Oral Tablet Take 1 Tablet by mouth every 6 hours as needed for Nausea. 30 Tablet 0 06/30/2023 Active Eliquis 5 MG Oral Tablet (Apixaban) TAKE 1 TABLET BY MOUTH TWICE A DAY 180 Tablet 2 07/03/2023 Active Metoprolol Succinate ER 25 MG Oral Tablet Extended Release 24 Hour (toPROL XL)Indications:Parox ysmal atrial fibrillation (HCC) One tablet by mouth daily 90 Tablet 3 07/28/2023 Active Sertraline HCl 100 MG Oral Tablet (Zoloft)Indications: Adjustment disorder with mixed disturbance of emotions and conduct Take 1 Tablet by mouth in the morning. 90 Tablet 1 08/27/2023 Active Nitrofurantoin Monohyd Macro 100 MG Oral Capsule (Macrobid) Take 1 Capsule by mouth in the morning and 1 Capsule before bedtime. With food.. 60 Capsule 0 09/28/2023 Active Additional Information Patient not taking.Reported on 11/25/2023 Atorvastatin Calcium 40 MG Oral Tablet (Lipitor)Indications :Dyslipidemia, goal LDL below 130 TAKE 1 TABLET BY MOUTH EVERY DAY 90 Tablet 1 09/29/2023 Active Trospium Chloride ER 60 MG Oral Capsule Extended Release 24 Hour (Sanctura ER) Take 1 Capsule by mouth in the morning. 90 Capsule 1 10/27/2023 Active Nystatin 759064 UNIT/GM External OintmentIndications: Scar APPLY TO AFFECTED SKIN FOLDS NIGHTLY DURING FLARES 30 g 2 11/11/2023 Active documented as of this encounter (statuses as of 12/11/2023) Active Problems Problem Noted Date Diagnosed Date [...] as of this encounter (statuses as of 12/11/2023) Resolved Problems Problem Noted Date Diagnosed Date Resolved Date Prediabetes 12/20/2018 11/19/2023 Overview: Per Prediabetes protocol #1 documented as of this encounter (statuses as of 12/11/2023) Immunizations Name Administration Dates Next Due COVID-19 [...] Date Smoking Tobacco: Former Cigarettes 0.5 3 Q uit: 1974 Smokeless Tobacco: Never Comments:quit 50 years [...] encounter Miscellaneous Notes * Telephone Encounter - Carri Baker LPN - 12/11/2023 4:12 PM EST Duplicate encounter * Telephone Encounter - Naheed Centeno MED ASSIST - 12/11/2023 3:32 PM EST Pt called back. Please call pt back. * Telephone Encounter - Carri Baker LPN - 12/11/2023 3:22 PM EST lmtcb documented in this encounter Plan of Treatment Upcoming Encounters Date Type Department Care Team (Late st Contact Info) Description 12/21/2023 11:00 AM EST Office Visit Cardiology, [facility] [address] [facility] [place] [address] Arias Munguia, 132 [facility] [place] [address] 05/25/2024 11:30 AM EDT Imaging [facility] [address] [facility] [place] [address] 06/08/2024 1:30 PM EDT Office Visit Urology, [facility] [address] [facility] [place] [address] Everton Long MD [address] [place] [address] [place] [address] 10/21/2024 1:30 PM EST Office Visit Dermatology [facility] [address] [facility] [place] [address] Chico Mandel MD [address] [facility] [address] Scheduled Procedures Name Priority Associated Diagnoses Date/Ti [...] D LEVEL ONCE IN A LIFETIME-USE SMARTSET# [id number] Completed 02/11/2023, 09/04/2020, 04/26/2019, Additional history exists [...] Not on filedocumented as of this encounter Advance Directives Latest Code Status [...] Advance Directives occurred with: Patient Care Teams Performance Test Consultant Relationship Specialty Start Date End Date Arlyn Vallecillo DO [address] [place] [address] PCP - General Family Medicine 08/30/15 documented as of this encounter
--- OUTSIDE RECORDS SUMMARY | 2024-04-12 19:13 | External Medical Summary | Summary of Care ---
Author Name Unknown Organization [facility] Address [address] [facility] [place] [address] Phone [phone] Care Team Providers Care Tow Feeder Name Role Phone Arlyn Vallecillo DO Primary Care Provider [phone] Encounter Details Date Type Department Care Team (Late st Contact Info) Description 02/20/2024 Orders Only PATIENT PORTAL DO NOT DELETE THIS DEPT USED BY [place] [address] Allergies Active Allergy Reactions Criticality Noted Date [...] and 1 Tablet before bedtime. 0 Active [place]-3 Fatty Acids (FISH OIL) 1000 MG Capsule [...] DAY 180 Tablet 0 02/18/2024 Active Nystatin 343538 UNIT/GM External OintmentIndications:S car APPLY TO AFFECTED [...] Smoking Tobacco: Former Cigarettes 0.5 3 1 151 - 6045 Smokeless Tobacco: Never Comments:quit 50 years ago [...] 03/04/2024 2:30 PM EDT Imaging Radiology [address] 132 [facility] [place] [address] 05/18/2024 1:00 PM EDT Office Visit Cardiology [facility] [address] [place] [address] Lea Carroll IV, MD [address] [place] [address] 05/25/2024 11:30 AM EDT Imaging Radiology [address] 132 [place] [address] 06/08/2024 1:30 PM EDT Office Visit Urology, [facility] 132 [facility] [place] [address] Everton Long MD 27 [facility] [address] [place] [address] 10/21/2024 1:30 PM EST Office Visit Dermatology [facility] 200 [facility] [place] [address] Chico Mandel MD 200 [facility] [place] [address] Scheduled Procedures Name Priority Associated Diagnoses Date/Ti [...] D LEVEL ONCE IN A LIFETIME-USE SMARTSET# [id number] Completed 02/11/2023, 09/04/2020, 04/26/2019, Additional history exists [...] Advance Directives occurred with: Patient Care Teams Tow Feeder Relationship Specialty Start Date End Date Arlyn Vallecillo DO 132 [place] [address] PCP - General Family Medicine 08/30/15 documented as of this encounter
--- OUTSIDE RECORDS SUMMARY | 2024-04-12 19:13 | External Medical Summary ---
Author Name Unknown Address Unknown Organization K0G:[facility] [place] [address] [place] [address] Laboratory Report Ordering Provider Test Date Status KADE BROOKS 02/20/2024 12:37:16 Final Observation Date Value Abnormality Reference (Units ) Status SYNC LEUKOCYTES IN BLOOD BY AUTOMATED COUNT 02/20/2024 12:37:16 6.80 4.00-10.80 (K/uL) Final Segs 02/20/2024 12:37:16 62.0 40.0-75.0 (%) Final Lymphs % 02/20/2024 12:37:16 24.7 18.0-42.0 (%) Final Monos 02/20/2024 12:37:16 10.3 1.0-11.0 (%) Final Eosinophils 02/20/2024 12:37:16 2.9 0.0-6.0 (%) Final Basos 02/20/2024 12:37:16 0.1 0.0-2.0 (%) Final Absolute Segs 02/20/2024 12:37:16 4.21 1.80-7.70 (K/uL) Final Lymphs, absolute 02/20/2024 12:37:16 1.68 1.00-4.80 (K/ul) Final Monos, Abs 02/20/2024 12:37:16 0.70 0.00-1.10 (K/uL) Final Eos, Abs 02/20/2024 12:37:16 0.20 0.00-0.70 (K/uL) Final Basos, Abs 02/20/2024 12:37:16 0.01 0.00-0.20 (K/uL) Final Performing Location [facility] [place] [address] [place] [address]
--- OUTSIDE RECORDS SUMMARY | 2024-04-12 19:13 | External Medical Summary | Summary of Care ---
Author Name Unknown Organization [facility] Address [address] [facility] [address] Phone [phone] Care Team Providers Care Reference Investigator Name Role Phone Holger Cardona DO Primary Care Provider [phone] Reason for Visit * Reason Comments eRx-Medication Refill Encounter Details Date Type Department Care Team (Late st Contact Info) Description 02/16/[address] [facility] [address] [place] [address] Holger Cardona DO [address] [place] [address] Encounter for long-term (current) use of medications*; Paroxysmal atrial fibrillation (HCC) Allergies Active Allergy Reactions Criticality Noted Date Comments Ciprofloxacin 12/29/2019 ?hives, single lip swelling, was on cipro and flagyl together Metronidazole 12/29/2019 ?hives, single lip swelling, was on cipro and flagyl together documented as of this encounter (statuses as of 02/18/2024) Medications Medication Sig Dispensed Refills Start Date [...] and 1 Tablet before bedtime. 0 Active [place]-3 Fatty Acids (FISH OIL) 1000 MG Capsule [...] Active Ondansetron 4 MG Oral Tablet Disintegrating (Zofran)Indications :Nausea without vomiting Place 1 Tablet on tongue every 8 hours as needed for Nausea. dissolve on tongue. 14 Tablet 0 3 Active Ondansetron HCl 4 MG Oral Tablet Take 1 Tablet by mouth every 6 hours as needed for Nausea. 30 Tablet 0 3 Active Metoprolol Succinate ER 25 MG Oral Tablet Extended Release 24 Hour (toPROL XL)Indications:Paro xysmal atrial fibrillation (HCC) One tablet by mouth daily 90 Tablet 3 3 Active Atorvastatin Calcium 40 MG Oral Tablet (Lipitor)Indication s:Dyslipidemia, goal LDL below 130 TAKE 1 TABLET BY MOUTH EVERY DAY 90 Tablet 1 3 Active Nystatin 880956 UNIT/GM External OintmentIndications :Scar APPLY TO AFFECTED SKIN FOLDS NIGHTLY DURING FLARES 30 g 2 4 Active Sertraline HCl 100 MG Oral Tablet (Zoloft) Take 1.5 Tablets by mouth in the morning. 135 Tablet 3 4 Active Trospium Chloride ER 60 MG Oral Capsule Extended Release 24 Hour Take 1 Capsule by mouth in the morning. 90 Capsule 3 4 Active Furosemide 20 MG Oral Tablet (Lasix) One tablet by mouth in the morning 3 days per week on Mondays, Wednesdays and Fridays 36 Tablet 3 4 Active Eliquis 5 MG Oral Tablet (Apixaban) TAKE 1 TABLET BY MOUTH TWICE A DAY 180 Tablet 0 4 Active Eliquis 5 MG Oral Tablet (Apixaban) TAKE 1 TABLET BY MOUTH TWICE A DAY 180 Tablet 2 3 02/18/20 24 Discontinued documented as of this encounter (statuses as of 02/18/2024) Active Problems Problem Noted Date Diagnosed Date [...] as of this encounter (statuses as of 02/18/2024) Resolved Problems Problem Noted Date Diagnosed Date Resolved Date Prediabetes 12/20/2018 11/19/2023 Overview: Per Prediabetes protocol #1 documented as of this encounter (statuses as of 02/18/2024) Immunizations Name Administration Dates Next Due COVID-19 [...] (15 years old or older) No 07/10/20 Cognitive Status Response Date of Assessm ent Because of a physical, menta l, or emotional condition, do you have serious difficulty concentrating, remembering, or making decisions? (5 years old or older) No 07/10/2020 documented as of this encounter Miscellaneous Notes * Telephone Encounter - Pablo Quinones real estate clerk - 02/18/2024 9:54 AM EDT Received message from [facility] regarding patient needing labs. Call Placed, Pt was agreeable to have labs drawn but would prefer to walk-in at their convenience. Thank you, Pablo Quinones School Administrator [facility] 02/18/2024, 9:54 AM * Telephone Encounter - Paulette Pickett [facility] - 02/18/2024 9:39 AM EDTSigned Prescriptions: Disp Refills Eliquis 5 MG Oral Tablet (Apixaban) 180 Ta*0 Sig: TAKE 1 TABLET BY MOUTH TWICE A DAYAuthorizing Provider: HOLGER CARDONA User: PAULETTE PICKETT------- * Telephone Encounter - Paulette Pickett RPh - 02/18/2024 9:32 AM EDT Patient had outside labs on 02/28/2023 for CBC, Provided 90 days supply with 0 refill(s). Per refill protocol patient should have CBC on file within past year. Reviewed AMP report, Care Gaps/Health Maintenance, medications list, and for any routine labs typically ordered for this patient. Lab orders placed. Please contact patient to advise of labs ordered for blood draw. Recommend patient to fast if able for labs. Patient may still have water and regular medications. Advise to obtain labs before requesting the next refill. Pending Prescriptions: Disp Refills Eliquis 5 MG Oral Tablet (Apixaban) [Phar*180 Ta*0 Sig: TAKE 1 TABLET BY MOUTH TWICE A DAY Thank you, Paulette Pickett [facility] Clinical Pharmacist [facility] ([facility]) (formerly Telepharmacy) 02/18/24 9:39 AM [phone] documented in this encounter Plan of Treatment Upcoming Encounters Date Type Department Care Team (Late st Contact Info) Description 03/04/2024 2:30 PM EDT Imaging Radiology [address] [address] 05/18/2024 1:00 PM EDT Office Visit Cardiology [facility] [place] [address] [place] [address] Lea Carroll IV, MD [address] [place] [address] 05/25/2024 11:30 AM EDT Imaging Radiology [address] [place] [address] 06/08/2024 1:30 PM EDT Office Visit Urology, [facility] 132 [facility] [place] [address] Everton Long MD [address] [place] [place] [address] 10/21/2024 1:30 PM EST Office Visit Dermatology [facility] 200 [place] [address] Chico Mandel MD [facility] [place] [address] Scheduled Orders Name Type Priority Associated Diagnoses Orde r Schedule CBC WITH WBC DIFFERENTIAL Lab Routine Encounter for long-term (current) use of medications Paroxysmal atrial fibrillation (HCC) Expected: 03/03/2024 (Approximate), Expires: 02/17/2025 Scheduled Procedures Name Priority Associated Diagnoses Date/Ti [...] D LEVEL ONCE IN A LIFETIME-USE SMARTSET# [id number] Completed 02/11/2023, 09/04/2020, 04/26/2019, Additional history exists [...] Diagnosis Encounter for long-term (current) use of medications- Primary Encounter for long-term (current) use of other medications Paroxysmal atrial fibrillation (HCC) Atrial fibrillation documented in [...] Advance Directives occurred with: Patient Care Teams Reference Investigator Relationship Specialty Start Date End Date Holger Cardona DO 132 [place] [address] PCP - General Family Medicine 08/30/15 documented as of this encounter
--- OUTSIDE RECORDS SUMMARY | 2024-04-12 19:13 | External Medical Summary | Summary of Care ---
Author Name Unknown Organization [facility] Address [address] [facility] [address] Phone [phone] Care Team Providers Care Slip Bridge Operator Name Role Phone Arlyn Vallecillo DO Primary Care Provider [phone] Reason for Visit * Reason Comments Outpatient Testing Encounter Details Date Type Department Care Team (Late st Contact Info) Description 02/09/2024 4:10 PM EDT Laboratory Laboratory [facility] [address] [place] [id number] [facility] 200 [facility] [place] [address] Dysuria Allergies Active Allergy Reactions Criticality Noted Date Comments Ciprofloxacin 12/29/2019 ?hives, single lip swelling, was on cipro and flagyl together Metronidazole 12/29/2019 ?hives, single lip swelling, was on cipro and flagyl together documented as of this encounter (statuses as of 02/09/2024) Medications Medication Sig Dispensed Refills Start Date [...] and 1 Tablet before bedtime. 0 Active [place]-3 Fatty Acids (FISH OIL) 1000 MG Capsule [...] Active Atorvastatin Calcium 40 MG Oral Tablet (Lipitor)Indications :Dyslipidemia, goal LDL below 130 TAKE 1 TABLET BY MOUTH EVERY DAY 90 Tablet 1 09/29/2023 Active Nystatin 059139 UNIT/GM External OintmentIndications: Scar APPLY TO AFFECTED SKIN FOLDS NIGHTLY DURING FLARES 30 g 2 11/11/2023 Active Sertraline HCl 100 MG Oral Tablet [...] and Fridays 36 Tablet 3 01/12/2024 Active Cephalexin 500 MG Oral CapsuleIndications:D ysuria Take 1 Capsule by mouth in the morning and 1 Capsule before bedtime. Do all this for 7 days. 14 Capsule 0 02/09/2024 02/16/2024 Active documented as of this encounter (statuses as of 02/09/2024) Active Problems Problem Noted Date Diagnosed Date [...] as of this encounter (statuses as of 02/09/2024) Resolved Problems Problem Noted Date Diagnosed Date Resolved Date Prediabetes 12/20/2018 11/19/2023 Overview: Per Prediabetes protocol #1 documented as of this encounter (statuses as of 02/09/2024) Immunizations Name Administration Dates Next Due COVID-19 mRNA, LNP-s, No Pre serve, 2-Dose Series (Moderna) 01/02/2021,12/03/2020 COVID-19 mRNA, LNP-s, No Pre serve, 2-Dose Series (Aquicore) 09/02/2021 COVID-19, MRNA-LNP, 23-24, P F, 50 [...] Description 03/04/2024 2:30 PM EDT Imaging Radiology [address] 132 [facility] [place] [address] 05/18/2024 1:00 PM EDT Office Visit Cardiology [facility] [address] [place] [address] Lea Carroll IV, MD [address] [place] [address] 05/25/2024 11:30 AM EDT Imaging Radiology [address] 132 [facility] [place] [address] 06/08/2024 1:30 PM EDT Office Visit Urology, [facility] 132 [facility] [place] [address] Everton Long MD 27 [facility] [address] [place] [address] 10/21/2024 1:30 PM EST Office Visit Dermatology [facility] 200 [place] [address] Chico Mandel MD 200 [facility] [place] [address] Pending Results Name Type Priority Associated Diagnoses Date /Time CULTURE, URINE, QUANTITATIVE Lab Routine Dysuria 02/09/2024 3:58 PM EDT Scheduled Procedures Name Priority Associated [...] D LEVEL ONCE IN A LIFETIME-USE SMARTSET# [id number] Completed 02/11/2023, 09/04/2020, 04/26/2019, Additional history exists [...] Advance Directives occurred with: Patient Care Teams Slip Bridge Operator Relationship Specialty Start Date End Date Arlyn Vallecillo DO [address] [place] [address] PCP - General Family Medicine 08/30/15 documented as of this encounter
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
--- OUTSIDE RECORDS SUMMARY | 2024-04-12 19:13 | External Medical Summary ---
Author Name Unknown Address Unknown Organization [id number]:LABORATORY [facility] [place] - [address] [facility] [address] Laboratory Report Ordering Provider Test Date Status BRENDAN WREN 02/09/2024 15:58:02 Final <10,000 colonies/ml mixed no rmal loraine Observation Date Value Abnormality Reference (Units ) Status Bacteria identified in Specimen by Culture 02/09/2024 15:58:02 [id number]^ESCHE RICHIA COLI Abnormal Final >100,000 colonies/mL Escheri ginny coli Performing Location LAB[facility]ATORY [facility] [place] - [address] [facility] [address] Ordering Provider Test Date Status BRENDAN WREN 02/09/2024 15:58:02 Final Observation Date Value Abnormality Reference (Units ) Status Ampicillin 02/09/2024 15:58:02 >=32 Resistant Final Ampicillin + Sulbactam 02/09/2024 15:58:02 >=32 Resistant Final Cefazolin 02/09/2024 15:58:02 <=4 Susceptible Final Cefepime susceptibility 02/09/2024 15:58:02 <=1 Susceptible Final Ceftriaxone suceptibility 02/09/2024 15:58:02 <=1 Susceptible Final Ciprofloxacin 02/09/2024 15:58:02 <=0.25 Susceptible Final Due to serious side effects, the FDA has advised against using Ciprofloxacin to treat uncomplicated UTIs and respiratory tract infections unless there are no alternative treatment options. Gentamicin susceptibility 02/09/2024 15:58:02 <=1 Susc eptible Final Levofloxacin susceptibility 02/09/2024 15:58:02 0.25 Gallo sceptible Final Due to serious side effects, the FDA has advised against using Levofloxacin to treat uncomplicated UTIs and respiratory tract infections unless there are no alternative treatment options. Nitrofurantoin susceptibility 02/09/2024 15:58:02 <=16 Susceptible Final Piperacillin + Tazobactamsusceptibility 02/09/2024 15:58:02 <=4 Susceptible Final TMP-SMZ susceptibility 02/09/2024 15:58:02 >=320 Resista nt Final Test: Culture, Urine, Quanti tative
Specimen Source: Urine, Clean Catch
Specimen Type: Urine
Specimen Date: 02/09/2024 3:58 PM
Result Date: 02/11/2024 12:48 PM
Result Status: Final result
Abnormal: Yes
Resulting Lab: LAB[facility]ATORY [facility] [place]
[address]
[facility] [address]

CULTURE

>100,000 colonies/mL Escherichia coli (Abnormal)

<10,000 colonies/ml mixed normal loraine

SUSCEPTIBILITY

Escherichia coli
METHOD MICROBROTH
DILUTIONS

AMPICILLIN >=32 Resistant
AMPICILLIN/SULBACTAM >=32 Resistant
CEFAZOLIN <=4 Susceptible
CEFEPIME <=1 Susceptible
CEFTRIAXONE <=1 Susceptible
CIPROFLOXACIN <=0.25 Susceptible
GENTAMICIN <=1 Susceptible
LEVOFLOXACIN 0.25 Susceptible
NITROFURANTOIN <=16 Susceptible
PIPERACILLIN TAZOBACTAM <=4 Susceptible
TRIMETH/SULFAMETHOXAZOLE >=320 Resistant

null Performing Location LAB[facility]ATORY [facility] [place] - [address] [facility] [address]
--- OUTSIDE RECORDS SUMMARY | 2024-04-12 19:13 | External Medical Summary | Summary of Care ---
Author Name Unknown Organization [facility] Address [address] [place] [address] Phone [phone] Care Team Providers Care Middleware Architect Name Role Phone Arlyn Vallecillo DO Primary Care Provider [phone] Reason for Referral * Evaluate & Treat - Unlimited Visits (Within 30 days (routine)) - Authorized Specialty Diagnoses / Procedures Referred By Contact Referred To Contact Cardiac Electrophysiology / Cardiology Diagnoses Persistent atrial fibrillation (HCC) Gross hematuria Arias Munguia DO [address] [place] [address] Referral ID Status Reason Start Date Expiration Date Visits Requested Visits Authorized [id number] Authorized Specialty Services Required 12/21/2023 999 999 Question Answer Referral Priority Within 30 days (routine) Where should this appointment be scheduled? Yue Comments Refer to Dr Carroll at or [facility] to discuss Watchman device * Precert (Within 10 days (routine)) - Authorized Specialty Diagnoses / Procedures Referred By Contac t Referred To Contact Cardiac Studies Diagnoses [place] (dyspnea on exertion) Persistent atrial fibrillation (HCC) Aortic valve sclerosis Procedures ECHO, COMPLETE (2D), TRANS-THORACIC Arias Munguia DO [address] [place] [address] Referral ID Status Reason Start Date Expiration Date V isits Requested Visits Authorized [id number] Authorized Precert 12/21/2023 999 999 Reason for Visit * Reason Comments Follow Up Encounter Details Date Type Department Care Team (Late st Contact Info) Description 12/21/2023 11:00 AM EST Office Visit Cardiology, [facility] [address] [place] [address] Arias Munguia, [address] [place] [address] [place] (dyspnea on exertion)*; Persistent atrial fibrillation (HCC); Aortic valve sclerosis; HTN, goal below 140/90; Dyslipidemia, goal LDL below 100; Gross hematuria Allergies Active Allergy Reactions Criticality Noted Date Comments Ciprofloxacin 12/29/2019 ?hives, single lip swelling, was on cipro and flagyl together Metronidazole 12/29/2019 ?hives, single lip swelling, was on cipro and flagyl together documented as of this encounter (statuses as of 12/21/2023) Medications Medication Sig Dispensed Refills Start Date [...] and 1 Tablet before bedtime. 0 Active [place]-3 Fatty Acids (FISH OIL) 1000 MG Capsule [...] morning. 90 Capsule 1 10/27/2023 Active Nystatin 209186 UNIT/GM External OintmentIndications :Scar APPLY TO AFFECTED SKIN FOLDS NIGHTLY DURING FLARES 30 g 2 11/11/2023 Active Sertraline HCl 100 MG Oral Tablet (Zoloft) Take 1.5 Tablets by mouth in the morning. 135 Tablet 3 12/18/2023 Active Omeprazole 20 MG Oral Capsule Delayed Release (PriLOSEC) TAKE 1 CAPSULE BY MOUTH DAILY FOR 90 DAYS AFTER SURGERY 90 Capsule 1 04/27/2023 4 Discontinued Nitrofurantoin Monohyd Macro 100 MG Oral Capsule (Macrobid) Take 1 Capsule by mouth in the morning and 1 Capsule before bedtime. With food.. 60 Capsule 0 09/28/2023 4 Discontinued documented as of this encounter (statuses as of 12/21/2023) Active Problems Problem Noted Date Diagnosed Date [...] as of this encounter (statuses as of 12/21/2023) Resolved Problems Problem Noted Date Diagnosed Date Resolved Date Prediabetes 12/20/2018 11/19/2023 Overview: Per Prediabetes protocol #1 documented as of this encounter (statuses as of 12/21/2023) Immunizations Name Administration Dates Next Due COVID-19 [...] Sign Reading Time Taken Comments Blood Pressure 96/66 12/21/2023 11:15 AM EST Pulse 72 12/21/2023 11:15 AM EST Temperature - - Respiratory Rate 14 12/21/2023 11:15 AM EST Oxygen Saturation - - Inhaled Oxygen Concentration - - Weight 98 kg (216 lb) 12/21/2023 11:15 AM EST Height - - Body Mass Index 36.5 07/14/2023 2:24 PM EDT documented in this [...] as of this encounter Progress Notes * Arias Munguia, DO - 12/21/2023 11:19 AM EST 12/21/2023 Cardiology Follow Up CHIEF COMPLAINT: Follow up, history of paroxysmal atrial fibrillation, mild regurgitant valvular disease, left atrial enlargement, hypertension, dyslipidemia SUBJECTIVE: Iram Valentino is a 78 year old year old female who returns today in routine cardiology follow-up. She notes that since her previous visit she had visited the [place] and had a wonderful trip. Her main subjective complaint today is that she has noted more shortness of breath with exertion with activity such as walking in from the parking lot. She questions if maybe it was related to deconditioning to some degree. She had been struggling with recurrent urinary tract infections and kidney stones and continues to follow closely with Dr. Long of Urology. She has been having issues with ongoing intermittent gross hematuria typically noting hematuria about once every 1 to 2 weeks, with one recent episode of more severe blood in her urine as her description. Cardiology problem list: Paroxsymal Afib, on metoprolol and Eliquis, [id number] score of 5 (age, female, hypertension, DM) Severe left atrial enlargement Aortic valve calcification without stenosis Mild AI, MR, TR HTN HLD DM Extensive ROS: All systems reviewed & are unremarkable except as noted in HPI & below Cardiovascular (chest pain/palpitations/fluttering/diaphoresis/dyspnea on exertion/paroxysmally nocturnal dyspnea):Negative and see above hpi Review of patient's allergies indicates: Allergen Reactions Ciprofloxacin ?hives, single lip swelling, was on cipro and flagyl together Flagyl [Metronidazole] ?hives, single lip swelling, was on cipro and flagyl together Current Outpatient Medications Medication Sig Dispense Refill [...] the morning and 1 Tablet before bedtime. [place]-3 Fatty Acids (FISH OIL) 1000 MG Capsule [...] as needed for Nausea. 30 Tablet 0 Eliquis 5 MG Oral Tablet (Apixaban) TAKE 1 TABLET BY MOUTH TWICE A DAY 180 Tablet 2 Metoprolol Succinate ER 25 MG Oral Tablet Extended Release 24 Hour (toPROL XL) One tablet by mouth daily 90 Tablet 3 Atorvastatin Calcium 40 MG Oral Tablet (Lipitor) TAKE 1 TABLET BY MOUTH EVERY DAY 90 Tablet 1 Trospium Chloride ER 60 MG Oral Capsule Extended Release 24 Hour (Sanctura ER) Take 1 Capsule by mouth in the morning. 90 Capsule 1 Nystatin 561344 UNIT/GM External Ointment APPLY TO AFFECTED SKIN FOLDS NIGHTLY DURING FLARES 30 g 2 Sertraline HCl 100 MG Oral Tablet (Zoloft) Take 1.5 Tablets by mouth in the morning. 135 Tablet 3 No current facility-administered medications for this visit. OBJECTIVE/PHYSICAL EXAMINATION: BP 96/66 | Pulse 72 | Resp 14 | Wt 98 kg (216 lb) | LMP (LMP Unknown) | BMI 36.50 kg/m | BSA 2.11m General: no acute distress and stated age Eyes: conjunctiva are pink and non-injected, sclera clear Neck: normal jugular venous pulse, no hepatojugular reflux Chest: normal shape and normal respiratory effort Lungs: clear to auscultation , no rales rhonchi or wheezing Cardiac Exam: -irregular rhythm, no murmurs Abdomen: Not examined Musculoskeletal: no gait disturbance, no weakness Extremities: no edema and no cyanosis Neuro: grossly normal exam Psych: appropriate affect and insight. Data: Summary of ttecho performed 11/27/22: The rhythm during the transthoracic echo examination was atrial fibrillation with controlled ventriculr response. No evidence of endocarditis visualized within the limitations of this imaging modality. The qualitative LV ejection fraction is 55-59% (normal). The left atrium is severely enlarged (>48 ml/m^2,). The aortic valve has three leaflets. The aortic valve is mildly calcified. Mild aortic valve regurgitation is present. There is moderate mitral annular calcification. Mild mitral regurgitation is present. Moderate tricuspid regurgitation is present. There is no evidence of pulmonary hypertension. Compared to prior study of 01/31/2022, there is no significant change. Latest Reference Range & Units 05/30/22 10:31 Triglycerides <=174 mg/dL 41 Cholesterol <200 mg/dL 143 Non-HDL Cholesterol <=159 mg/dL 51 HDL Cholesterol >49 mg/dL 92 LDL Cholesterol <=129 mg/dL 43 ASSESSMENT / PLAN: 78 year old year old female She was seen in follow-up for chronic conditions including persistent atrial fibrillation hypertension and dyslipidemia-with plan as noted. [place] (dyspnea on exertion) (Primary) Persistent atrial fibrillation (HCC) Aortic valve sclerosis HTN, goal below 140/90 Dyslipidemia, goal LDL below 100 -an echocardiogram that was performed a year ago revealed normal LVEF. -the aortic valve was mildly calcified without evidence of aortic valve stenosis. -given symptoms of dyspnea on exertion, proceed with a repeat echocardiogram. -she does not have any definite symptoms to suggest angina, and had a negative dobutamine stress echocardiogram in 2017. -her volume status is normo volemic. -she is ongoing concerns with intermittent hematuria while on Eliquis for stroke prophylaxis. As previously discussed her CHADS-VASc score is 5 predicting a high risk of cardioembolic stroke. -she was interested in discussing options such as a Watchman left atrial appendage occlusion deviceand will therefore refer her to Dr. Carroll Prescription medication management: Continue atorvastatin, Eliquis, metoprolol- current doses At the time for visit a year ago, it was determined that she has likely been in atrial fibrillationpersistently as compared to paroxysmal atrial fibrillation. DISPOSITION: Follow Up: Return in about 6 months (around 06/20/2024) for Clinic Visit. | For: Clinic Visit | Check-out note: Echo within 1-[address] Carroll at [facility] or [facility] as pt willing to drive to discuss Watchman device. Arias Munguia DO Cardiology, [address] [address] This chart was completed in part utilizing [employer] Speech Voice Recognition Software. Grammatical errors, random word insertions, prounoun errors, and incomplete sentences are an occasional consequence of this system due to software limitations, ambient noise, and hardware issues. Any formal questions or concerns about the content, text, or information contained within the body of this dictation should be directly addressed to the provider for clarification. documented in this encounter Nursing Notes * Vernell Fabian LPN - 12/21/2023 11:15 AM EST Examination Room: 12 Name: Iram Valentino Date of : 1945 Reason for Visit: Follow up Problems/Concerns: Discuss watchman Interim Hosp(s): denies Chest [...] Care Team (Late st Contact Info) Description 01/11/2024 1:30 PM EST Cardiac Studies Cardiac Studies, [facility] [address] [place] [address] 02/17/2024 1:00 PM EDT Office Visit Cardiology [facility] [address] [place] [address] Lea Carroll IV, MD [address] [place] [address] 05/25/2024 11:30 AM EDT Imaging Radiology [facility] 1st Floor, [place] [address] [facility] [place] [address] 06/08/2024 1:30 PM EDT Office Visit Urology, [facility] [address] [place] [address] Everton Long MD [address] [facility] [address] [place] [address] 10/21/2024 1:30 PM EST Office Visit Dermatology [facility] [address] [place] [address] Chico Mandel MD [address] [place] [address] Scheduled Orders Name Type Priority Associated Diagnoses Orde r Schedule ECHO, COMPLETE (2D), TRANS-THORACIC Echocardiology Routine [place] (dyspnea on exertion) Persistent atrial fibrillation (HCC) Aortic valve sclerosis Expected: 12/21/2023 (Approximate), Expires: 12/21/2024 Scheduled Procedures Name Priority Associated Diagnoses Date/Ti me COLONOSCOPY FLEXIBLE PROXIMAL DIAGNOSTIC Recall Screen for colon cancer Scheduled Referrals Name Type Priority Associated Diagnoses Orde r Schedule ELECTROPHYSIOLOGY REFERRAL OP Referral Within 30 days (routine) Persistent atrial fibrillation (HCC) Gross hematuria Ordered: 12/21/2023 Health Maintenance Due Date Last Done Comments Depression Screening 05/01/2022 05/01/2021 DXA Scan 01/21/2025 01/21/2023, 01/07, 10/15/2020, Additional history exists DTaP,Tdap,and Td Vaccines (2 - Td or Tdap) 10/10/2026 10/10/2016 Pneumococcal Vaccine: 65+ Years Completed 09/02/2016, 08/30/2015 Zoster Vaccines Completed 09/23/2019, 07/10, 08/30/2014 VITAMIN D LEVEL ONCE IN A LIFETIME-USE SMARTSET# [id number] Completed 02/11/2023, 09/04/2020, 04/26/2019, Additional history exists [...] as of this encounter Visit Diagnoses Diagnosis [place] (dyspnea on exertion)- Primary Other dyspnea and respiratory abnormality Persistent atrial fibrillation (HCC) Atrial fibrillation Aortic valve sclerosis Aortic valve disorders HTN, goal below 140/90 Unspecified essential hypertension Dyslipidemia, goal LDL below 100 Other and unspecified hyperlipidemia Gross hematuria documented in this encounter Advance Directives Latest [...] Advance Directives occurred with: Patient Care Teams Middleware Architect Relationship Specialty Start Date End Date Arlyn Vallecillo DO [address] [place] [address] PCP - General Family Medicine 08/30/15 documented as of this encounter"
--- OUTSIDE RECORDS SUMMARY | 2024-04-12 19:13 | External Medical Summary | Summary of Care ---
Author Name Unknown Organization [facility] Address [address] [facility] [address] Phone [phone] Care Team Providers Care Clinical Support Manager Name Role Phone Holger Cardona DO Primary Care Provider [phone] Reason for Visit * Reason Comments eRx-Medication Refill Encounter Details Date Type Department Care Team (Late st Contact Info) Description 02/16/2024 Refill Family Practice [facility] [address] [place] [address] Holger Cardona DO [address] [place] [address] Encounter for long-term (current) use of medications*; [...] and 1 Tablet before bedtime. 0 Active [place]-3 Fatty Acids (FISH OIL) 1000 MG Capsule [...] DAY 90 Tablet 1 3 Active Nystatin 261109 UNIT/GM External OintmentIndications :Scar APPLY TO AFFECTED [...] Notes * Telephone Encounter - Pablo Quinones laboratory machinist - 02/18/2024 9:54 AM EDT Received message from [facility] regarding patient needing labs. Call Placed, Pt was agreeable to have labs drawn but would prefer to walk-in at their convenience. Thank you, Pablo Quinones Skirt Trimmer [facility] 02/18/2024, 9:54 AM * Telephone Encounter - Paulette Pickett [facility] - 02/18/2024 9:39 AM EDTSigned [...] TWICE A DAY Thank you, Paulette Pickett [facility] Clinical Pharmacist [facility] ([facility]) (formerly Telepharmacy) 02/18/24 9:39 AM [phone] documented in this encounter Plan of Treatment Upcoming Encounters Date Type Department Care Team (Late st Contact Info) Description 03/04/2024 2:30 PM EDT Imaging Radiology [address] [address] 05/18/2024 1:00 PM EDT Office Visit Cardiology [facility] [place] [address] [place] [address] Lea Carroll IV, MD [address] [place] [address] 05/25/2024 11:30 AM EDT Imaging Radiology [address] [place] [address] 06/08/2024 1:30 PM EDT Office Visit Urology, [facility] [address] [facility] [place] [address] Everton Long MD [address] [place] [address] [place] [address] 10/21/2024 1:30 PM EST Office Visit Dermatology [facility] [address] [place] [address] Chico Mandel MD [address] [facility] [place] [address] Scheduled Orders Name Type Priority Associated Diagnoses [...] D LEVEL ONCE IN A LIFETIME-USE SMARTSET# [id number] Completed 02/11/2023, 09/04/2020, 04/26/2019, Additional history exists [...] Advance Directives occurred with: Patient Care Teams Clinical Support Manager Relationship Specialty Start Date End Date Holger Cardona DO [address] [place] [address] PCP - General Family Medicine 08/30/15 documented as of this encounter
--- OUTSIDE RECORDS SUMMARY | 2024-04-12 19:13 | External Medical Summary | Summary of Care ---
Author Name Unknown Organization [facility] Address [address] [facility] [address] Phone [phone] Care Team Providers Care Switch Foreman Name Role Phone Arlyn Vallecillo DO Primary Care Provider [phone] Encounter Details Date Type Department Care Team (Late st Contact Info) Description 12/11/2023 Telephone Urology [facility] Doan [address] [place] [address] Everton Long MD [address] [place] [address] [place] [address] Allergies Active Allergy Reactions Criticality Noted Date [...] and 1 Tablet before bedtime. 0 Active [place]-3 Fatty Acids (FISH OIL) 1000 MG Capsule [...] morning. 90 Capsule 1 10/27/2023 Active Nystatin 154448 UNIT/GM External OintmentIndications: Scar APPLY TO AFFECTED [...] 12/21/2023 11:00 AM EST Office Visit Cardiology, [facility] [address] [place] [address] Arias Munguia, [address] [place] [address] 05/25/2024 11:30 AM EDT Imaging Radiology [facility] [address] [place] [address] 06/08/2024 1:30 PM EDT Office Visit Urology, [facility] [address] [place] [address] Everton Long MD [address] [facility] [address] [place] [address] 10/21/2024 1:30 PM EST Office Visit Dermatology [place] [facility] [address] [facility] [place] [address] Chico Mandel MD [address] [facility] [place] [address] Scheduled Procedures Name Priority Associated Diagnoses Date/Ti [...] D LEVEL ONCE IN A LIFETIME-USE SMARTSET# [id number] Completed 02/11/2023, 09/04/2020, 04/26/2019, Additional history exists [...] Advance Directives occurred with: Patient Care Teams Switch Foreman Relationship Specialty Start Date End Date Arlyn Vallecillo DO [address] [place] [address] PCP - General Family Medicine 08/30/15 documented as of this encounter
--- OUTSIDE RECORDS SUMMARY | 2024-04-12 19:13 | External Medical Summary | Summary of Care ---
Author Name Unknown Organization [facility] Address [address] [place] [address] Phone [phone] Care Team Providers Care Printer Floor Covering Assistant Name Role Phone Arlyn Vallecillo DO Primary Care Provider [phone] Reason for Referral * Evaluate & Treat - Unlimited Visits (Within 30 days (routine)) - Authorized Specialty Diagnoses / Procedures Referred By Contact Referred To Contact Cardiac Electrophysiology / Cardiology Diagnoses Persistent atrial fibrillation (HCC) Gross hematuria Arias Munguia DO [address] [place] [address] Referral ID Status Reason Start Date Expiration Date Visits Requested Visits Authorized [id number] Authorized Specialty Services Required 12/21/2023 999 999 Question Answer Referral Priority Within 30 days (routine) Where should this appointment be scheduled? Yue Comments Refer to Dr Carroll at or [facility] to discuss Watchman device * Precert (Within 10 days (routine)) - Authorized Specialty Diagnoses / Procedures Referred By Contac t Referred To Contact Cardiac Studies Diagnoses [place] (dyspnea on exertion) Persistent atrial fibrillation (HCC) Aortic valve sclerosis Procedures ECHO, COMPLETE (2D), TRANS-THORACIC Arias Munguia DO [address] [place] [address] Referral ID Status Reason Start Date Expiration Date V isits Requested Visits Authorized [id number] Authorized Precert 12/21/2023 999 999 Reason for Visit * Reason Comments Follow Up Encounter Details Date Type Department Care Team (Late st Contact Info) Description 12/21/2023 11:00 AM EST Office Visit Cardiology, [facility] [address] [place] [address] Arias Munguia, [address] [place] [address] [place] (dyspnea on exertion)*; Persistent atrial fibrillation [...] and 1 Tablet before bedtime. 0 Active [place]-3 Fatty Acids (FISH OIL) 1000 MG Capsule [...] morning. 90 Capsule 1 10/27/2023 Active Nystatin 585744 UNIT/GM External OintmentIndications :Scar APPLY TO AFFECTED [...] her previous visit she had visited the [place] and had a wonderful trip. Her main [...] list: Paroxsymal Afib, on metoprolol and Eliquis, [id number] score of 5 (age, female, hypertension, DM) [...] the morning and 1 Tablet before bedtime. [place]-3 Fatty Acids (FISH OIL) 1000 MG Capsule [...] in the morning. 90 Capsule 1 Nystatin 127925 UNIT/GM External Ointment APPLY TO AFFECTED SKIN [...] 1-[address] Carroll at [facility] or [facility] Chiang as pt willing to drive to discuss Watchman device. Arias Munguia DO Cardiology, [address] [address] This chart was completed in part utilizing [employer] Speech Voice Recognition Software. Grammatical errors, random [...] 1:30 PM EST Cardiac Studies Cardiac Studies, [facility] 132 [facility] [place] [address] 02/17/2024 1:00 PM EDT Office Visit Cardiology [facility] [place] [address] [place] [address] Lea Carroll IV, MD [address] [place] [address] 05/25/2024 11:30 AM EDT Imaging Radiology [facility] 1st Floor, [place] 132 [facility] [place] [address] 06/08/2024 1:30 PM EDT Office Visit Urology, [facility] 132 [place] [address] Everton Long MD 27 [facility] [address] [place] [address] 10/21/2024 1:30 PM EST Office Visit Dermatology [facility] 200 [facility] [place] [place] [address] Chico Mandel MD 200 [facility] [place] [place] [address] Scheduled Orders Name Type Priority Associated Diagnoses [...] D LEVEL ONCE IN A LIFETIME-USE SMARTSET# [id number] Completed 02/11/2023, 09/04/2020, 04/26/2019, Additional history exists [...] Advance Directives occurred with: Patient Care Teams Printer Floor Covering Assistant Relationship Specialty Start Date End Date Arlyn Vallecillo DO [address] [place] [address] PCP - General Family Medicine 08/30/15 documented as of this encounter"
--- OUTSIDE RECORDS SUMMARY | 2024-04-12 19:13 | External Medical Summary ---
Author Name Unknown Address Unknown Organization K09:[facility] [place] [address] Laboratory Report Ordering Provider Test Date Status CRYS CASTRO 01/21/2024 15:08:06 Final Observation Date Value Abnormality Reference (Units ) Status BUN 01/21/2024 15:08:06 13 6-20 (mg/dL) Final Creatinine 01/21/2024 15:08:06 1.0 0.5-1.0 (mg/dL) Final Glomerular filtration rate/1.73 sq M.predicted [Volume Rate/Area] in Serum, Plasma or Blood by Creatinine-based formula (CKD-EPI) 01/21/2024 15:08:06 58 Below low normal >=60 (mL/min) Final eGFR is calculated based on the CKD-EPI 2020 equation SODIUM 01/21/2024 15:08:06 144 135-146 (m mol/L) Final Potassium 01/21/2024 15:08:06 4.2 3.5-5.1 (m mol/L) Final Cl 01/21/2024 15:08:06 107 98-107 (mm ol/L) Final CO2 01/21/2024 15:08:06 25 22-32 (mmo l/L) Final Anion gap 01/21/2024 15:08:06 12 7-15 (mmol /L) Final Glucose 01/21/2024 15:08:06 110 70-120 (mg /dL) Final Calcium 01/21/2024 15:08:06 9.1 8.4-10.2 ( mg/dL) Final Performing Location [facility] [place] [address]
--- OUTSIDE RECORDS SUMMARY | 2024-04-12 19:13 | External Medical Summary ---
Author Name Unknown Address Unknown Organization K01:[facility] [place] [address] [facility] [address] Laboratory Report Ordering Provider Test Date Status BRENDAN WREN 02/20/2024 12:37:16 Final Observation Date Value Abnormality Reference (Units ) Status HbA1C 02/20/2024 12:37:16 5.9 Above high normal 4. 0-5.6 (%) Final The use of HbA1c to monitor glycemic status is based on normal hemoglobin and HbA composition. This test should not be used in patients with abnormal hemoglobin that affects the half life of the red blood cell or the in vivo glycation rates. Glucose, estimated average 02/20/2024 12:37:16 123 <126 (mg/dL) Final Performing Location [facility] [place] [address] [place] [address]
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
--- OUTSIDE RECORDS SUMMARY | 2024-04-12 19:13 | External Medical Summary | Summary of Care ---
Author Name Unknown Organization [facility] Address [address] [place] [address] Phone [phone] Care Team Providers Care Noteman Name Role Phone Arlyn Vallecillo DO Primary Care Provider [phone] Encounter Details Date Type Department Care Team (Late st Contact Info) Description 02/18/2024 Refill Dermatology [facility] [address] [place] [address] Sima Yuen MD [address] [place] [address] [place] Allergies Active Allergy Reactions Criticality Noted Date [...] and 1 Tablet before bedtime. 0 Active [place]-3 Fatty Acids (FISH OIL) 1000 MG Capsule [...] DAY 180 Tablet 0 02/18/2024 Active Nystatin 650298 UNIT/GM External OintmentIndications :Scar APPLY TO AFFECTED SKIN FOLDS NIGHTLY DURING FLARES 30 g 0 02/18/2024 Active Nystatin 808160 UNIT/GM External OintmentIndications :Scar APPLY TO AFFECTED SKIN FOLDS NIGHTLY DURING FLARES 30 g 2 11/11/2023 4 Discontinue d(Refill) documented as of this encounter (statuses as [...] encounter Miscellaneous Notes * Telephone Encounter - Damian Espinosa MD - 02/18/2024 11:50 AM EDTSigned Prescriptions: Disp Refills Nystatin 719939 UNIT/GM External Ointment 30 g 0 Sig: APPLY TO AFFECTED SKIN FOLDS NIGHTLY DURING FLARESAuthorizing Provider: DAMIAN ESPINOSA * Telephone Encounter - Yessy Servin LPN - 02/18/2024 10:39 AM EDT Pending Prescriptions: Disp Refills Nystatin 139346 UNIT/GM External Ointment 30 g 2 Sig: APPLY TO AFFECTED SKIN FOLDS NIGHTLY DURING FLARES * Telephone Encounter - Pablo Quinones PHARM Tech - 02/18/2024 9:54 AM EDT Did you pend patient's preferred pharmacy and medication before forwarding?yes Pharmacy: [id number] [address] [facility] Pending Prescriptions: Disp Refills Nystatin 245260 UNIT/GM External Ointment 30 g 2 Sig: APPLY TO AFFECTED SKIN FOLDS NIGHTLY DURING FLARES Last Visit: 10/09/2023 (in office), Visit date not found (telemedicine) Next Visit: 10/21/2024 If no future appointments scheduled, and last appointment is greater than a year ago, please schedule patient for a follow-up appointment Last date the medication was ordered: 11/11/2023 Is this request for a controlled substance?No Urine Drug Screen:No results found for this or any previous visit. Patient Phone Numbers Labs: Lab Results Component Value Date/Time CREAT 1.0 01/21/2024 03:08 PM CREAT 0.86 02/28/2023 12:00 AM CREAT 0.8 09/04/2020 12:12 PM POTASSIUM 4.2 01/21/2024 03:08 PM POTASSIUM 3.8 02/28/2023 12:00 AM POTASSIUM 4.5 07/11/2020 05:49 AM TSH 2.12 05/19/2022 01:12 PM LDLCALC 43 05/30/2022 10:31 AM LDLCALC 34 06/05/2020 10:08 AM LDLDIRECT NOT APPLICABLE 06/05/2020 10:08 AM ALT 23 02/11/2023 02:21 PM ALT 17 04/23/2020 10:40 AM HGBA1C 5.8 (H) 02/11/2023 02:21 PM HGBA1C 5.7 (H) 12/08/2020 01:24 PM documented in this encounter Plan of Treatment Upcoming Encounters Date Type Department Care Team (Late st Contact Info) Description 03/04/2024 2:30 PM EDT Imaging Radiology [address] 132 [facility] [place] [address] 05/18/2024 1:00 PM EDT Office Visit Cardiology [facility] [place] [address] [place] [address] Lea Carroll IV, MD [address] [place] [address] 05/25/2024 11:30 AM EDT Imaging Radiology [address] 132 [facility] [place] [address] 06/08/2024 1:30 PM EDT Office Visit Urology, [facility] 132 [facility] [place] [address] Everton Long MD [address] [place] [address] 10/21/2024 1:30 PM EST Office Visit [facility] [address] [facility] [place] [address] Chico Mandel MD 200 [facility] [place] [address] Scheduled Procedures Name Priority Associated Diagnoses Date/Ti [...] D LEVEL ONCE IN A LIFETIME-USE SMARTSET# [id number] Completed 02/11/2023, 09/04/2020, 04/26/2019, Additional history exists [...] as of this encounter Visit Diagnoses Diagnosis Scar Scar condition and fibrosis of skin documented in this encounter Advance Directives Latest [...] Advance Directives occurred with: Patient Care Teams Noteman Relationship Specialty Start Date End Date Arlyn Vallecillo DO [address] [place] [address] PCP - General Family Medicine 08/30/15 documented as of this encounter
--- OUTSIDE RECORDS SUMMARY | 2024-04-12 19:14 | External Medical Summary ---
Author Name Unknown Address Unknown Organization K01:[facility] [place] [address] [place] [facility] Laboratory Report Ordering Provider Test Date Status CORRIE ULLOA 11/25/2023 09:14:33 Final Observation Date Value Abnormality Reference (Units ) Status Bacteria identified in Specimen by Culture 11/25/2023 09:14:33 < 100 colonies/ml (no growth) Final Test: Culture, Urine, Quanti tative
Specimen Source: Urine, Cystoscopy
Specimen Type: Urine
Specimen Date: 11/25/2023 9:14 AM
Result Date: 11/26/2023 12:26 PM
Result Status: Final result
Resulting Lab: [facility]
[address]
[place] [facility]

CULTURE

< 100 colonies/ml (no growth)

null Performing Location [facility] [place] [address] [facility] [address]
--- OUTSIDE RECORDS SUMMARY | 2024-04-12 19:14 | External Medical Summary | Summary of Care ---
Author Name Unknown Organization [facility] [address] [facility] [address] Phone [phone] Care Team Providers Care Newspaper Clipper Name Role Phone Arlyn Vallecillo DO Primary Care Provider [phone] Reason for Visit * Reason Comments eRx-Medication Refill Encounter Details Date Type Department Care Team (Late st Contact Info) Description 11/10/2023 Refill Dermatology [facility] [address] [facility] [address] [facility] [address] [facility] Allergies Active Allergy Reactions Criticality Noted Date Comments Ciprofloxacin 12/29/2019 ?hives, single lip swelling, was on cipro and flagyl together Metronidazole 12/29/2019 ?hives, single lip swelling, was on cipro and flagyl together documented as of this encounter (statuses as of 11/11/2023) Medications Medication Sig Dispensed Refills Start Date [...] and 1 Tablet before bedtime. 0 Active [place]-3 Fatty Acids (FISH OIL) 1000 MG Capsule [...] on tongue. 14 Tablet 0 3 Active Omeprazole 20 MG Oral Capsule Delayed Release (PriLOSEC) TAKE 1 CAPSULE BY MOUTH DAILY FOR 90 DAYS AFTER SURGERY 90 Capsule 1 3 Active Additional Information Patient not taking.Reported on 07/14/2023 Ondansetron HCl 4 MG Oral Tablet Take 1 Tablet by mouth every 6 hours as needed for Nausea. 30 Tablet 0 3 Active Eliquis 5 MG Oral Tablet (Apixaban) TAKE 1 TABLET BY MOUTH TWICE A DAY 180 Tablet 2 3 Active Metoprolol Succinate ER 25 MG Oral Tablet Extended Release 24 Hour (toPROL XL)Indications:Paro xysmal atrial fibrillation (HCC) One tablet by mouth daily 90 Tablet 3 3 Active Sertraline HCl 100 MG Oral Tablet (Zoloft)Indications :Adjustment disorder with mixed disturbance of emotions and conduct Take 1 Tablet by mouth in the morning. 90 Tablet 1 3 Active Nitrofurantoin Monohyd Macro 100 MG Oral Capsule (Macrobid) Take 1 Capsule by mouth in the morning and 1 Capsule before bedtime. With food.. 60 Capsule 0 3 Active Atorvastatin Calcium 40 MG Oral Tablet (Lipitor)Indication s:Dyslipidemia, goal LDL below 130 TAKE 1 TABLET BY MOUTH EVERY DAY 90 Tablet 1 3 Active Trospium Chloride ER 60 MG Oral Capsule Extended Release 24 Hour (Sanctura ER) Take 1 Capsule by mouth in the morning. 90 Capsule 1 3 Active Nystatin 855847 UNIT/GM External OintmentIndications :Scar APPLY TO AFFECTED SKIN FOLDS NIGHTLY DURING FLARES 30 g 2 4 Active Nystatin 669824 UNIT/GM External OintmentIndications :Scar APPLY TO AFFECTED SKIN FOLDS NIGHTLY DURING FLARES 30 g 2 3 11/11/19 24 Discontinued documented as of this encounter (statuses as of 11/11/2023) Active Problems Problem Noted Date Diagnosed Date Ureteral stone with hydronephrosis 03/05/2023 Recurrent UTI [...] in female 02/15/2019 Overview: Stage 0 DCIS Prediabetes 12/20/2018 Overview: Per Prediabetes protocol #1 Body mass index (BMI) of 40.0 to 44.9 in adult 1 Overview: Per Obesity protocol #1 High risk for fracture due to osteoporosis by DE XA scan 01/15/2017 Hx of basal cell carcinoma 12/03/2015 Overview: L nasal bridge [place] (unknown year) documented as of this encounter (statuses as of 11/11/2023) Immunizations Name Administration Dates Next Due COVID-19 mRNA, LNP-s, No Pre serve, 2-Dose Series (Moderna) 01/02/2021,12/03/2020 COVID-19 mRNA, LNP-s, No Pre serve, 2-Dose Series (NGI) 09/02/2021 COVID-19, MRNA-LNP, 23-24, P F, 51 [...] encounter Miscellaneous Notes * Telephone Encounter - Chico Mandel MD - 11/11/2023 8:50 AM EST Signed Prescriptions: Disp Refills Nystatin 900654 UNIT/GM External Ointment 30 g 2 Sig: APPLY TO AFFECTED SKIN FOLDS NIGHTLY DURING FLARES Authorizing Provider: CHICO MANDEL * Telephone Encounter - Yessy Servin LPN - 11/11/2023 8:47 AM ESTPending Prescriptions: Disp Refills Nystatin 876216 UNIT/GM External Ointment *30 g 2 Sig: APPLY TOAFFECTED SKIN FOLDS NIGHTLY DURING FLARES documented in this encounter Plan of Treatment Upcoming Encounters Date Type Department Care Team (Late st Contact Info) Description 02/02/2024 1:45 PM EDT Procedure Only Urology, [facility] [address] [facility] [place] [address] Everton Long MD [address] [facility] [address] [place] [address] 10/21/2024 1:30 PM EST Office Visit Dermatology [facility] 200 [facility] [place] [address] Chico Mandel MD 200 [place] [address] Scheduled Procedures Name Priority Associated Diagnoses Date/Ti me COLONOSCOPY FLEXIBLE PROXIMAL DIAGNOSTIC Recall Screen for colon cancer Health Maintenance Due Date Last Done Comments Depression Screening 05/01/2022 05/01/2021 HbA1c 02/12/2024 02/11/2023, 03/2023, 06/13/2022, Additional history exists DXA Scan 01/21/2025 01/21/2023, 01/07, 10/15/2020, Additional history exists DTaP,Tdap,and Td Vaccines (2 - Td or Tdap) 10/10/2026 10/10/2016 Pneumococcal Vaccine: 65+ Years Completed 09/02/2016, 08/30/2015 Zoster Vaccines Completed 09/23/2019, 07/10, 08/30/2014 VITAMIN D LEVEL ONCE IN A LIFETIME-USE SMARTSET# [id number] Completed 02/11/2023, 09/04/2020, 04/26/2019, Additional history exists [...] Advance Directives occurred with: Patient Care Teams Newspaper Clipper Relationship Specialty Start Date End Date Arlyn Vallecillo DO [address] [place] [address] PCP - General Family Medicine 08/30/15 documented as of this encounter
--- OUTSIDE RECORDS SUMMARY | 2024-04-12 19:14 | External Medical Summary | Summary of Care ---
Author Name Unknown Organization [facility] Address [address] [facility] [address] Phone [phone] Care Team Providers Care Rn Coronary Care Unit Name Role Phone Arlyn Vallecillo DO Primary Care Provider [phone] Encounter Details Date Type Department Care Team (Late st Contact Info) Description 12/11/2023 Telephone Urology [facility] [address] [place] [address] Everton Long MD [address] [place] [address] Allergies Active Allergy Reactions Criticality Noted Date [...] and 1 Tablet before bedtime. 0 Active [place]-3 Fatty Acids (FISH OIL) 1000 MG Capsule [...] morning. 90 Capsule 1 10/27/2023 Active Nystatin 193622 UNIT/GM External OintmentIndications: Scar APPLY TO AFFECTED [...] encounter Miscellaneous Notes * Telephone Encounter - Naheed Centeno MED ASSIST - 12/11/2023 3:32 PM EST Pt called back. Please call pt back. * Telephone Encounter - Carri Baker LPN - 12/11/2023 3:22 PM EST lmtcb documented in this encounter Plan of Treatment Upcoming Encounters Date Type Department Care Team (Late st Contact Info) Description 12/21/2023 11:00 AM EST Office Visit Cardiology, [facility] [address] [place] [address] Arias Munguia, DO [address] [place] [address] 05/25/2024 11:30 AM EDT Imaging Radiology [facility] [address] [facility] 132 [facility] [place] [address] 06/08/2024 1:30 PM EDT Office Visit Urology, [facility] [address] [facility] [place] [address] Everton Long MD [address] [place] [address] 10/21/2024 1:30 PM EST Office Visit Dermatology [facility] [address] [place] [address] Chico Mandel MD [address] [place] [address] Scheduled Procedures Name Priority Associated Diagnoses Date/Ti [...] D LEVEL ONCE IN A LIFETIME-USE SMARTSET# [id number] Completed 02/11/2023, 09/04/2020, 04/26/2019, Additional history exists [...] Advance Directives occurred with: Patient Care Teams Rn Coronary Care Unit Relationship Specialty Start Date End Date Arlyn Vallecillo DO [address] [place] [address] PCP - General Family Medicine 08/30/15 documented as of this encounter
--- OUTSIDE RECORDS SUMMARY | 2024-04-12 19:14 | External Medical Summary | Summary of Care ---
Author Name Unknown Organization [facility] Address [address] [facility] [address] Phone [phone] Care Team Providers Care Documentation Lead Name Role Phone Arlyn Vallecillo DO Primary Care Provider [phone] Encounter Details Date Type Department Care Team (Late st Contact Info) Description 12/11/2023 Telephone Urology [facility] [address] [place] [address] Everton Long MD [address] [place] [address] Allergies Active Allergy Reactions Criticality Noted Date [...] and 1 Tablet before bedtime. 0 Active [place]-3 Fatty Acids (FISH OIL) 1000 MG Capsule [...] morning. 90 Capsule 1 10/27/2023 Active Nystatin 732555 UNIT/GM External OintmentIndications: Scar APPLY TO AFFECTED [...] 12/21/2023 11:00 AM EST Office Visit Cardiology, [facility] [address] [place] [address] Arias Munguia, DO [address] [place] [address] 05/25/2024 11:30 AM EDT Imaging Radiology [facility] [address] [facility] [address] [facility] [place] [address] 06/08/2024 1:30 PM EDT Office Visit Urology, [facility] [address] [facility] [place] [address] Everton Long MD [address] [place] [address] 10/21/2024 1:30 PM EST Office Visit Dermatology [facility] [address] [address] Ch[place] Mandel MD [address] [place] [address] Scheduled Procedures Name Priority Associated Diagnoses Date/Ti [...] D LEVEL ONCE IN A LIFETIME-USE SMARTSET# [id number] Completed 02/11/2023, 09/04/2020, 04/26/2019, Additional history exists [...] Advance Directives occurred with: Patient Care Teams Documentation Lead Relationship Specialty Start Date End Date Arlyn Vallecillo DO [address] [place] [address] PCP - General Family Medicine 08/30/15 documented as of this encounter
--- OUTSIDE RECORDS SUMMARY | 2024-04-12 19:14 | External Medical Summary | Summary of Care ---
Author Name Unknown Organization [facility] Address [address] [place] [address] Phone [phone] Care Team Providers Care Animal Control Supervisor Name Role Phone Holger Cardona DO Primary Care Provider [phone] Reason for Referral * Precert (Within 10 days (routine)) - Authorized Specialty Diagnoses / Procedures Referred By Ines becker Referred To Contact Radiology Diagnoses Right renal mass Procedures MRI KIDNEY W WO CONTRAST Everton Long MD [address] [place] [place] [address] Referral ID Status Reason Start Date Expiration Date V isits Requested Visits Authorized [id number] Authorized 05/25/2024 999 999 Reason for Visit * Reason Comments Cystoscopy Encounter Details Date Type Department Care Team (Latest Contact Info) Description 11/25/2023 8:45 AM EST Procedure Only Urology, [facility] [address] [facility] [place] [address] Everton Long MD [address] [place] [address] Recurrent UTI*; Ureteral stone with hydronephrosis; Calculus of kidney; Right renal mass Allergies Active Allergy Reactions Criticality Noted Date Comments Ciprofloxacin 12/29/2019 ?hives, single lip swelling, was on cipro and flagyl together Metronidazole 12/29/2019 ?hives, single lip swelling, was on cipro and flagyl together documented as of this encounter (statuses as of 11/25/2023) Medications Medication Sig Dispensed Refills Start Date [...] and 1 Tablet before bedtime. 0 Active Oregonia-3 Fatty Acids (FISH OIL) 1000 MG Capsule [...] morning. 90 Capsule 1 10/27/2023 Active Nystatin 100473 UNIT/GM External OintmentIndications: Scar APPLY TO AFFECTED SKIN FOLDS NIGHTLY DURING FLARES 30 g 2 11/11/2023 Active Hospital, Clinic, or Other Facility Administered Medication Ordered Dose Route Frequency Start Date End Date Status sulfamethoxazole-trimethopr im DS (Bactrim DS) 800-160 MG 1 TabletIndications:Recurrent UTI,Ureteral stone with hydronephrosis,Calculus of kidney,Right renal mass 1 Tablet OR ONCE 11/25/2023 11/25/2023 E nded documented as of this encounter (statuses as of 11/25/2023) Active Problems Problem Noted Date Diagnosed Date [...] as of this encounter (statuses as of 11/25/2023) Resolved Problems Problem Noted Date Diagnosed Date Resolved Date Prediabetes 12/20/2018 11/19/2023 Overview: Per Prediabetes protocol #1 documented as of this encounter (statuses as of 11/25/2023) Immunizations Name Administration Dates Next Due COVID-19 [...] as of this encounter Progress Notes * Everton Long MD - 11/25/2023 8:45 AM EST [id number] PCP: HOLGER CARDONA [address] [place] [id number] [phone] Iram Valentino is a 78 year old female, who presents for cystoscopy for evaluation of gross hematuria. Patient's past notes reviewed. Imaging studies are reviewed showing right lower pole renal lesion. Patient feels the medication she was provided has caused 90% improvement in her symptoms. KUB images from today are reviewed showing no stone. Right renal mass: MRI Liver Jul 2023: IMPRESSION: 1. 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 2. Anterior abdominal pericolonic 1.4 cm lesion seen on ultrasound exhibits fat signal on MRI and fat attenuation on CT, consistent with an epiploic appendage. 3. Status post cholecystectomy. Nonspecific mild bile duct dilation. 4. Moderate hiatal hernia. 5. Moderate colonic diverticulosis. February 2023: 2.4 cm R renal lesion noted on CT scan. Early lesion present on CT noncontrast June 2018 Urinary Incontinence: Patient is being seen for urinary incontinence. Problem has been present for years. Severity is moderate. Problem is getting worse. Urinary incontinence is urge incontinence. They are using 4+ pads a day. They have used oxybutynin,tolteridine, Vesicare and Myrbetriq. Improved with trospium 60 mg extended release, provided October 2023. Urolithiasis: Patient is being seen for stone disease today. Problem has been present for years.. They have had anumber of previous stones. Severity is moderate Patient has had the following imaging done: CT scan. In the past they have had ureteroscopy to manage their stones. Stone composition Calcium Oxalate Dihydrate (Weddellite) 80% Carbonate Apatite (Dahllite) 10% Uric Acid 10% . Previous evaluation was done by primary care physician. Current Outpatient Medications Medication Sig Dispense Refill [...] the morning and 1 Tablet before bedtime. Oregonia-3 Fatty Acids (FISH OIL) 1000 MG Capsule [...] Nausea. dissolve on tongue. 14 Tablet 0 Omeprazole 20 MG Oral Capsule Delayed Release (PriLOSEC) TAKE 1 CAPSULE BY MOUTH DAILY FOR 90 DAYS AFTER SURGERY (Patient not taking: Reported on 07/14/2023) 90 Capsule 1 Ondansetron HCl 4 MG Oral Tablet Take 1 Tablet by mouth every 6 hours as needed for Nausea. 30 Tablet 0 Eliquis 5 MG Oral Tablet (Apixaban) TAKE 1 TABLET BY MOUTH TWICE A DAY 180 Tablet 2 Metoprolol Succinate ER 25 MG Oral Tablet Extended Release 24 Hour (toPROL XL) One tablet by mouth daily 90 Tablet 3 Sertraline HCl 100 MG Oral Tablet (Zoloft) Take 1 Tablet by mouth in the morning. 90 Tablet 1 Nitrofurantoin Monohyd Macro 100 MG Oral Capsule (Macrobid) Take 1 Capsule by mouth in the morning and 1 Capsule before bedtime. With food.. 60 Capsule 0 Atorvastatin Calcium 40 MG Oral Tablet (Lipitor) TAKE 1 TABLET BY MOUTH EVERY DAY 90 Tablet 1 Trospium Chloride ER 60 MG Oral Capsule Extended Release 24 Hour (Sanctura ER) Take 1 Capsule by mouth in the morning. 90 Capsule 1 Nystatin [id number] UNIT/GM External Ointment APPLY TO AFFECTED SKIN FOLDS NIGHTLY DURING FLARES 30 g 2 No current facility-administered medications for this visit. Review of patient's allergies indicates: Allergen Reactions Ciprofloxacin ?hives, single lip swelling, was on cipro and flagyl together Flagyl [Metronidazole] ?hives, single lip swelling, was on cipro and flagyl together Social History: Social History Tobacco Use Smoking status: Former Packs/day: 0.50 Years: 3.00 Additional pack years: 0.00 Total pack years: 1.50 Types: Cigarettes Quit date: 1974 Years since quittin.0 Smokeless tobacco: Never Tobacco comments: quit 50 years ago Substance Use Topics Alcohol use: Yes Comment: occasional wine and mixed drink Vaping/E-Cigarette Use Vaping/E-Cigarette Use Never User Vaping/E-Cigarette Substances Vaping/E-Cigarette Devices Past Surgical History: Procedure Laterality Date BREAST BIOPSY Left Benign COLONOSCOPY, DIAGNOSTIC (RECTUM) 06/10/2018 normal, repeat 10 yrs/COLONOSCOPY FLEXIBLE PROXIMAL DIAGNOSTIC performed by Clary Lee DO at ENDOSCOPY [facility] COLONOSCOPY, DIAGNOSTIC (RECTUM) 11/15/2019 normal, repeat 10 yrs/COLONOSCOPY FLEXIBLE PROXIMAL DIAGNOSTIC performed by Clary Lee DO at [facility] COLONOSCOPY, DIAGNOSTIC (RECTUM) 07/24/2023 diverticulosis/biopsies normal/COLONOSCOPY FLEXIBLE PROXIMAL DIAGNOSTIC performed by Clary Lee DO at [facility] CYSTO/URETERO W/LITHOTRIPSY Left 04/01/2023 CYSTOURETHROSCOPY URETEROSCOPY WITH LITHOTRIPSY AND STENT INSERTION performed by Everton Long MD at [facility] EGD, FLEXIBLE, DIAGNOSTIC 09/25/2016 normal/ESOPHAGOGASTRODUODENOSCOPY (EGD), FLEXIBLE, TRANSORAL, DIAGNOSTIC performed by Clary Lee DO at [facility] EGD, FLEXIBLE, DIAGNOSTIC 11/13/2017 tortuous esophagus, hiatal hernia/ESOPHAGOGASTRODUODENOSCOPY (EGD), FLEXIBLE, TRANSORAL, DIAGNOSTICperformed by Clary Lee DO at [facility] EGD, FLEXIBLE, DIAGNOSTIC 06/10/2018 tortuous esophagus, hiatal hernia/ESOPHAGOGASTRODUODENOSCOPY (EGD), FLEXIBLE, TRANSORAL, DIAGNOSTICperformed by Clary Lee DO at [facility] EGD, FLEXIBLE, DIAGNOSTIC 11/15/2019 Tortuous esophagus, hiatal hernia / ESOPHAGOGASTRODUODENOSCOPY (EGD), FLEXIBLE, TRANSORAL, DIAGNOSTIC performed by Clary Lee DO at [facility] EGD, FLEXIBLE, DIAGNOSTIC N/A 07/10/2020 ESOPHAGOGASTRODUODENOSCOPY (EGD), FLEXIBLE, TRANSORAL, DIAGNOSTIC performed by Keith Bryant MD at OR [facility] EGD, FLEXIBLE, DIAGNOSTIC 07/24/2023 normal/ESOPHAGOGASTRODUODENOSCOPY (EGD), FLEXIBLE, TRANSORAL, DIAGNOSTIC performed by Clary Lee DO at ENDOSCOPY [facility] HIATAL HERNIA REPAIR, LAP W/OUT MESH 2010 LAPAROSCOPY; CHOLECYSTECTOMY 2010 MAMMOGRAM BREAST NEEDLE BIOPSY CORE RIGHT Right 2007 DCIS MASTECTOMY, PARTIAL Right 2007 MISCELLANEOUS ORDER ([facility] ONLY) 2011 knee replacement b/l MISCELLANEOUS ORDER ([facility] ONLY) 2012 back surgery, Coflex procedure, L4-L5 MISCELLANEOUS ORDER ([facility] ONLY) mohs PARAESOPHAGEAL HERNIA REPAIR, LAP W/O MESH N/A 07/10/2020 LAPAROSCOPIC PARAESOPHAGEAL HERNIA REPAIR WO/ MESH performed by Keith Bryant MD at [facility] RADIATION THERAPY MANAGEMENT Right 2007 REMOVE TENDON SHEATH LESION, HAND Right 01/04/2020 EXCISION LESION TENDON SHEATH OR CAPSULE HAND OR FINGER performed by Felice Marin MD at OR [facility] SLEEVE GASTRECTOMY, LAPROSCOPY 2010 Past Medical History: Diagnosis Date A-fib ([facility]) permanent per pt 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, stage 0, s/p radiation Breast cancer ([facility]) 2007 Right breast, Stage 0-DCIS Depression past hx Diverticulitis flares 1-2x/year Kidney stone Patient Active Problem List Diagnosis Code Hx of basal cell carcinoma Z85.828 High risk for fracture due to osteoporosis by DEXA scan M81.0 Body mass index (BMI) of 40.0 to 44.9 in adult ([facility]) Z68.41 History of breast cancer in female Z85.3 Senile osteoporosis M81.0 Urge incontinence of urine N39.41 Stress incontinence N39.3 Urinary incontinence without sensory awareness N39.42 Nocturnal enuresis N39.44 Heart murmur previously undiagnosed R01.1 Advanced directives, counseling/discussion Z71.89 Digital mucous cyst of finger of right hand M67.441 Paroxysmal atrial fibrillation ([facility]) I48.0 Paraesophageal hiatal hernia K44.9 Cyst of left ovary N83.202 Recurrent fever A68.9 Urinary frequency R35.0 Ureteral stone with hydronephrosis N13.2 Recurrent UTI N39.0 Constitutional: (-) fever and (-) chills Eyes: (+) corrective lenses Female : (+) see HPI Neurology: (-) negative: no focal neurologic defect Psychiatry: (-) negative: no depression or anxiety Physical Exam Nursing note reviewed. Exam conducted with a mold injector present. Constitutional: General: She is not in acute distress. Appearance: Normal appearance. She is not ill-appearing or toxic-appearing. HENT: Head: Normocephalic and atraumatic. Right Ear: External ear normal. Left Ear: External ear normal. Nose: Nose normal. Mouth/Throat: Mouth: Mucous membranes are moist. Cardiovascular: Pulses: Normal pulses. Pulmonary: Effort: Pulmonary effort is normal. Abdominal: Palpations: Abdomen is soft. Genitourinary: General: Normal vulva. Musculoskeletal: General: No deformity or signs of injury. Cervical back: Normal range of motion and neck supple. Skin: General: Skin is warm. Coloration: Skin is not pale. Neurological: General: No focal deficit present. Mental Status: She is alert and oriented to person, place, and time. Psychiatric: Mood and Affect: Mood normal. Behavior: Behavior normal. Cystoscopy Procedure Note: Patient was properly identified and appropriate consent was confirmed. Risks and benefits of the procedure were reviewed and the patient was prepped and draped in the standard fashion for the procedure. A well lubricated 16 Luxembourgish flexible cystoscope was introduced through the meatus into the urethra. Urethra demonstrated no abnormalities. Bladder neck was visualized and bladder was entered. Sterile saline irrigation was used to distend the bladder which was noted to have no tumors, stones or mucosal abnormalities, cystocoele, grade 2, midline, and dependent debris with grade 3 trabeculation.Bladder was completely inspected including retroflexion of the scope. Ureteral orifices were noted to be in the normal anatomic position bilaterally. [place] of urine was taken from the bladder via the cystoscope. After this was completed the cystoscope was removed. Patient tolerated the procedurewell without complications or difficulties. Er Medical Technician was present for entire procedure. Perioperative Bactrim was provided. Impression/Plan: 78-year-old female with history of hematuria, right renal mass. Findings reviewed with patient. She feels improved on her trospium, will therefore leave as is. Evidence of incomplete bladder emptying associated with some bladder floor relaxation is appreciated. Urine culture drawn, will consider coverage if positive. Renal lesion reviewed with patient, will observe in the short term. Will plan on repeat imaging in 6 months time, 9 months from last. Will perform a renal mass protocol MRI at the time. Possible therapies are reviewed. Everton Long MD 7:35 AM 11/25/2023 documented in this encounter Nursing Notes * Hailey Ramirez LPN - 11/25/2023 8:47 AM EST Cystoscopy (hematuria), kub prior. Patient presents alone. Consent signed. Patient's skin was prepped with hibiclens, and 2% lidocaine jelly was inserted into urethra for cystoscopy. Patient tolerated well. documented in this encounter Plan of Treatment Upcoming Encounters Date Type Department Care Team (Late st Contact Info) Description 10/21/2024 1:30 PM EST Office Visit Dermatology [facility] [place] [address] [place] [address] Chico Mandel MD [address] [facility] [place] [address] Scheduled Orders Name Type Priority Associated Diagnoses Orde r Schedule CYSTOSCOPY Procedures Routine Recurrent UTI Calculus of kidney Ordered: 11/25/2023 CULTURE, URINE, QUANTITATIVE Lab Routine Recurrent UTI Calculus of kidney Ordered: 11/25/2023 MRI KIDNEY W WO CONTRAST Medical Imaging Routine Right renal mass Expected: 05/25/2024, Expires: 12/26/2024 Scheduled Procedures Name Priority Associated Diagnoses Date/Ti [...] D LEVEL ONCE IN A LIFETIME-USE SMARTSET# [id number] Completed 02/11/2023, 09/04/2020, 04/26/2019, Additional history exists [...] as of this encounter Visit Diagnoses Diagnosis Recurrent UTI- Primary Urinary tract infection, site not specified Ureteral stone with hydronephrosis Calculus of ureter Calculus of kidney Right renal mass Unspecified disorder of kidney and ureter documented in this encounter Administered Medications Inactive Administered Medications - up to 3 most recent administrations Medication Order MAR Action Action Date Dose Rate Site sulfamethoxazole-trimethoprim DS (Bactrim DS) 800-160 MG 1 Tablet 1 Tablet, Oral, ONCE, On Thu11/25/23 at 0915, For 1 dose Given 11/25/2023 8:53 AM EST 1 Tablet documented in this encounter Advance Directives Latest [...] Advance Directives occurred with: Patient Care Teams Animal Control Supervisor Relationship Specialty Start Date End Date Holger Cardona DO [address] [place] [address] PCP - General Family Medicine 08/30/15 documented as of this encounter
[2024-04-12] MEDS: PIPERACILLIN/TAZOBACTAM 4.5 GM in DEXTROSE 5% MINI-B 100 ML IV SCH (19:53)
[2024-04-12 19:57] LABS: BUN Creatinine Ratio 13.9 (10-20); Calcium 7.5 mg/dl (8.6-10.3); Creatinine Clr Calc Pharmacy 19.4 ml/min; Est GFR (African American) 16.9 ml/min; Est GFR (Non-African American) 14.6 ml/min; Potassium 4.2 mmol/L (3.5-5.1)
--- NOTE | 2024-04-12 20:17 | Critical Care Consultation ---
Date of Consultation April 12, 2024 Assessment & Plan (1) Septic shock: Reason Critically Ill: 78-year-old female with past medical history of persistent atrial fibrillation, and recurrent UTIs presents to the ICU with septic shock requiring vasopressor support after undergoing right ureteral stent for 15 mm obstructing ureteral stone with hydronephrosis and emphysematous pyelonephritis. Neuro - [facility] ICU: Negative Cardiac - Septic shock See ID for treatment of infectious process below. Currently req uiring vasopressor support to maintain MAP greater than 65 - Follow-up TTE - Random cortisol Pending - Wean pressors as tolerated - May need central access if requiring increased vasopressor support Elevated troponintroponin of 748 in the setting of ARF and septic shock, expect this would be demand ischemia - EKG with atrial fibrillation, no ST elevation. QTc 475 - Patient previously on ASA and anticoagulated on Eliquis. Holding anticoagulation due to procedure - No chest pain on exam. Trend troponin for now Persistent atrial fibrillationhold systemic anticoagulation following surgery, and MTP on hold as well hold due to hypotension. Continuous monitoring on telemetry. Currently rate controlled Respiratory - No history of pulmonary disease. Currently maintaining oxygen saturation on room air. Continuous monitoring on pulse ox GI - Renal diet RENAL/LYTES - NATALIO Likely multifactorial in the setting of sepsis with hypotension, hydronephrosis with right ureteral calculi, and pyelonephritis. - S/p right ureteral stent. Management per urology - See ID for management of pyelonephritis - Maintain maps greater than 65, gentle fluid resuscitation - Hold Lasix - Monitor routine BMPs and replete electrolytes as indicated. Trend creatinine - Avoid nephrotoxins and renally adjust medications Rhabdomyolysisinitial CPK 800. Continue with fluid resuscitation and trend CPK - Strict I's and O's S/p right ureteral stent for obstructing calculi. Management per urology ENDO - No history of diabetes. Currently euglycemic. ICU hyperglycemic protocol HEME - H&H stable, monitor routine CBC ID - Sepsis. Likely from urinary source. Procalcitonin elevated at 55. CT abdomen pelvis with right hydronephrosis due to obstructing calculi and evidence of e mphysematous pyelonephritis. -Blood cultures pending. - Send urine culture. -Continue Zosyn LINES/IV ACCESS - Peripheral IVs. DVT PROPHYLAXIS - SCDs, hold systemic anticoagulation following surgical procedure. I have personally spent 42 minutes of critical care time in the direct management of this patient. This is a life/limb threatening event. This includes time spent evaluating patient, direct bedside care, chart review, placing orders, interpretation of diagnostic studies, discussion with consultants, patient, and family members, as well as other required patient management acti vities. This time is exclusive of all separately billable procedures, and teaching time and separate from and in addition to any other critical care service time. Thank you for allowing us to participate in the care of this patient. Please refer to my attending physician's documentation for any further recommendations. (2) Emphysematous pyelonephritis: (3) Hydronephrosis with obstructing calculus: (4) NATALIO (acute kidney injury): (5) Elevated troponin: (6) Persistent atrial fibrillation: Supervising Physician Co-Signing Physician Notes I have personally evaluated and examined this patient. I agree with assessment and plan of [place]. I saw the patient in the emergency department prior to going to the operating room. Alert conversant and pleasant at that time. History of Present Illness Attending Physician: Yvan Cason MD History of Present Illness Patient 78-year-old female with past medical history of persistent A-fib (on Eliquis), recurrent UTIs who presented to the emergency department status post fall this morning with 4 days of nausea/diarrhea and occasional chills. Patient began to have progressive weakness and fell to the floor from her bed and was u nable to get up. She called her niece, who in turn called EMS. On arrival to the emergency department patient was having right flank pain. CT abdomen and pelvis revealed a 15 mm obstructing calculus at the right ureteropelvic junction causing moderate right hydronephrosis, perinephric stranding asymmetrically greater on the right, bladder with thickened parrish containing intraluminal gas and gas within the right renal collecting system. Patient was taken emergently to the OR and underwent cystoscope with right ureteral stent. She is now being admitted to the ICU with septic shock from emphysematous pyelonephritis requiring vasopressor support. On arrival to the ICU the patient is alert and oriented, and currently only complains of generalized weakness. She is requiring low-dose Levophed to maintain MAP greater than 65. She is currently maintaining oxygen saturation on room air without respiratory distress. She denies any headache, dizziness, sore throat or congestion, fevers, cough, shortness of breath, chest pain, palpitations, abdominal pain or caramping, nausea or vomiting, swelling in hands or feet, changes in gait. Abdomen was tender with palpation. Patient to remain in ICU for further management at this time. Allergies Allergy/AdvReac Type Severity Reaction Status Date / Time codeine AdvReac Mild ITCHING Verified 04/12/24 13:57 Home Medications Medication Instructions Recorded Confirmed Type ASPIRIN (ASPIRIN CHEWABLE) 81 mg PO DAILY ##0 01/22/16 04/12/24 History Multivitamin 1 tab PO DAILY #0 tabs 01/22/16 04/12/24 History Alendronate Sodium 70 mg PO USEASDIRECTD ##0 01/07/17 04/12/24 History CALCIUM CARBONATE (CALCIUM) 600 mg PO DAILY ##0 01/07/17 04/12/24 History CHOLECALCIFEROL (D 1000) 1,000 inter.unit PO DAILY ##0 01/07/17 04/12/24 History apixaban 5 mg tablet (Eliquis) 5 mg PO BID 04/12/24 04/12/24 History atorvastatin 40 mg tablet 40 mg PO DAILY 04/12/24 04/12/24 History furosemide 20 mg tablet 20 mg PO .3XWK 04/12/24 04/12/24 History metoprolol succinate 25 mg 25 mg PO DAILY 04/12/24 04/12/24 History tablet,extended release 24 hr sertraline 100 mg tablet 150 mg PO QAM 04/12/24 04/12/24 History trospium 60 mg capsule,extended 60 mg PO QAM 04/12/24 04/12/24 History release 24 hr Patient History Medical History Right renal mass Urinary calculus Cyst of left ovary Paraesophageal hiatal hernia Nocturnal enuresis Stress incontinence History of basal cell carcinoma Diverticulitis History of radiation therapy History of breast cancer Osteoporosis Recurrent UTI Urge incontinence of urine Heart murmur Paroxysmal A-fib Surgical History History of repair of hiatal hernia History of partial mastectomy of right breast History of laparoscopic cholecystectomy History of sleeve gastrectomy History of lumpectomy of both breasts History of laminectomy Social History Smoking Status: Former smoker Hx Alcohol Use: Yes Alcohol type: wine Hx Substance Use: No Preferred Language: Amharic Communication Ability: Effective Tree Shear Operator Required: No Beliefs That Will Affect Care: None Current Living Situation: Alone Feels Safe at Home: Yes Assistive Devices: None Review of Systems Review of Systems: All systems reviewed & are unremarkable except as noted in HPI & below Physical Exam Constitutional: cooperative and comfortable Eyes: PERRL, conjunctivae normal, anicteric sclerae ENMT: external ear and nose normal, oropharynx normal Neck: trachea midline, no thyromegaly Respiratory: normal respiratory effort, lungs clear to auscultation Cardiovascular: RRR, no murmur, no edema Heart Sounds: normal S1 and normal S2; no murmur Gastrointestinal (Abdomen): normal bowel sounds, soft, nontender, no hepatosplenomegaly Musculoskeletal: no cyanosis or clubbing, extremities motor strength 5/5 Skin: no rashes, warm and dry Neurologic: PERRL, EOMI, accommodation nl, no face palsy, no dysarthria Psychiatric: A+Ox3, euthymic affect Results & Data Results & Data Vital Signs (Past 12 Hours) Vital Signs Temp Pulse Pulse Resp BP BP Pulse Ox 04/12/24 18:35 104 H 18 106/51 L 92 04/12/24 17:46 90/73 L 04/12/24 17:42 112 H 21 112/78 94 04/12/24 17:15 108 H 22 94 04/12/24 17:03 115 H 23 93 04/12/24 16:48 92 H 35 H 106/92 93 04/12/24 16:25 36.4 C L 102 H 16 106/72 94 04/12/24 16:18 108 H 25 H 106/72 91 04/12/24 16:06 108 H 28 H 109/66 92 04/12/24 15:20 96 H 22 106/66 95 04/12/24 15:10 37.5 C 106 H 24 101/79 94 04/12/24 15:00 90 22 74/53 L 97 04/12/24 14:50 92 H 24 77/53 L 100 04/12/24 14:42 36.9 C 100 H 22 114/98 96 04/12/24 14:04 127/105 H 04/12/24 14:02 93/69 L 04/12/24 14:00 95/70 L 04/12/24 13:58 77/51 L 04/12/24 13:56 93/62 L 04/12/24 13:54 85/61 L 04/12/24 13:52 74/51 L 04/12/24 13:48 36.7 C 101 H 20 73/52 L 77 L 04/12/24 13:21 82/52 L 04/12/24 13:15 100 H 21 95 04/12/24 13:12 100 H 19 98 04/12/24 13:11 97/50 L 04/12/24 13:03 84/64 L 04/12/24 12:54 103 H 22 04/12/24 12:51 117 H 18 04/12/24 12:24 99 H 28 H 98 04/12/24 12:21 73/46 L 04/12/24 12:19 64/48 L 04/12/24 12:15 90/73 L 04/12/24 12:12 63/48 L 04/12/24 12:03 109 H 04/12/24 11:54 98 H 21 04/12/24 11:51 103 H 28 H 04/12/24 11:39 94 H 29 H 04/12/24 11:27 98 H 33 H 96 04/12/24 11:12 101 H 25 H 04/12/24 11:09 105 H 25 H 04/12/24 10:51 110 H 21 98 04/12/24 10:47 36.9 C 04/12/24 10:42 137 H 31 H 04/12/24 10:34 99 H 18 107/77 98 O2 Del Method O2 Flow Rate 04/12/24 18:35 Room Air 04/12/24 17:46 04/12/24 17:42 04/12/24 17:15 04/12/24 17:03 04/12/24 16:48 04/12/24 16:25 04/12/24 16:18 04/12/24 16:06 04/12/24 15:20 Room Air 04/12/24 15:10 Room Air 04/12/24 15:00 Oxymask 3 04/12/24 14:50 Oxymask 6 04/12/24 14:42 Oxymask 6 04/12/24 14:04 04/12/24 14:02 04/12/24 14:00 04/12/24 13:58 04/12/24 13:56 04/12/24 13:54 04/12/24 13:52 04/12/24 13:48 Room Air 04/12/24 13:21 04/12/24 13:15 04/12/24 13:12 04/12/24 13:11 04/12/24 13:03 04/12/24 12:54 04/12/24 12:51 04/12/24 12:24 04/12/24 12:21 04/12/24 12:19 04/12/24 12:15 04/12/24 12:12 04/12/24 12:03 04/12/24 11:54 04/12/24 11:51 04/12/24 11:39 04/12/24 11:27 04/12/24 11:12 04/12/24 11:09 04/12/24 10:51 04/12/24 10:47 04/12/24 10:42 04/12/24 10:34 Room Air Coding Level of Care Code 93072 CRITICAL CARE 1ST 30-74M Diagnoses Septic shock A41.9; R65.21 Emphysematous pyelonephritis N12 Hydronephrosis with obstructing calculus N13.2 NATALIO (acute kidney injury) N17.9 Elevated troponin R79.89 Persistent atrial fibrillation I48.19
[2024-04-12] MEDS: PLASMA-LYTE A 1,000 ML IV SCH (20:18)
[2024-04-12 23:08] LABS: A calco-baum cmplx NotReported Not Detected (NotDetected); Bact fragilis Not Reported Not Detected (NotDetected); Blood Culture Id Panel See PCR Comment (NotDetected); C auris Not Reported Not Detected (NotDetected); CTX-M Resistant Gene Not Detected (NotDetected); Calbicans Not Reported Not Detected (NotDetected); Candida glabrata Not Reported Not Detected (NotDetected); Candida krusei Not Reported Not Detected (NotDetected); Cneoformans/gatti Not Reported Not Detected (NotDetected); Cparapsilosis Not Reported Not Detected (NotDetected); E cloacae compx Not Reported Not Detected (NotDetected); Efaecalis Not Reported Not Detected (NotDetected); Efaecium Not Reported Not Detected (NotDetected); Enterobacterales DETECTED (NotDetected); Enterobacterales Not Reported DETECTED (NotDetected); Escherichia coli Not Reported DETECTED (NotDetected); H influenzae Not Reported Not Detected (NotDetected); IMP Resistant Gene Not Detected (NotDetected); K aerogenes Not Reported Not Detected (NotDetected); KPC Resistant Gene Not Detected (NotDetected); Koxytoca Not Reported Not Detected (NotDetected); Kpneumoniae grp Not Reported Not Detected (NotDetected); Lmonocyt Not Reported Not Detected (NotDetected); N meningitidis Not Reported Not Detected (NotDetected); NDM Resistant Gene Not Detected (NotDetected); OXA 48 Like Resistant Gene Not Detected (NotDetected); P aeruginosa Not Reported Not Detected (NotDetected); Proteus spp Not Reported Not Detected (NotDetected); Salmonella spp Not Reported Not Detected (NotDetected); Smarcescens Not Reported Not Detected (NotDetected); Staph lugdunensis Not Reported Not Detected (NotDetected); Staph spp. Not Reported Not Detected (NotDetected); Staphaureus Not Reported Not Detected (NotDetected); Staphepi Not Reported Not Detected (NotDetected); Stenmaltophilia Not Reported Not Detected (NotDetected); Strep agal(GrpB) Not Reported Not Detected (NotDetected); Strep pneum Not Reported Not Detected (NotDetected); Strep pyog (GrpA) Not Reported Not Detected (NotDetected); Strep spp Not Reported Not Detected (NotDetected); VIM Resistant Gene Not Detected (NotDetected); mcr-1 Colistin Resistant Gene Not Detected (NotDetected)
[2024-04-13] MEDS: ACETAMINOPHEN 325 MG TAB PO PRN (03:05)
[2024-04-13 05:06] LABS: Hematocrit (blood only) 34.2 % (37.0-47.0); Mean Corpuscular Hemoglobin 27.3 pg (25.0-34.0); Mean Corpuscular Hgb Conc 32.2 g/dL (32.0-36.0); Mean Corpuscular Volume 84.9 fL (80.0-100.0); Mean Platelet Volume 13.8 fL (9.4-12.4); Platelet Count 99 K/uL (130-400); RDW Coefficient of Variation 15.2 % (11.5-14.5); RDW Standard Deviation 46.8 fL (36.4-46.3); Red Blood Count 4.03 M/uL (4.20-5.40); White Blood Count 11.21 K/ul (4.8-10.8)
[2024-04-13 05:18] LABS: Albumin Globulin Ratio 0.9 (0.9-2); Albumin Level 2.8 gm/dl (3.4-5.0); BUN Creatinine Ratio 15.9 (10-20); Bilirubin,Total 1.2 mg/dl (0.2-1.0); Calcium 7.1 mg/dl (8.6-10.3); Est GFR (African American) 16.5 ml/min; Est GFR (Non-African American) 14.3 ml/min; Globulin 3.1 gm/dl (2.5-4.0); Magnesium 1.7 mg/dl (1.7-2.4); Phosphorus 4.8 mg/dl (2.5-4.9); Potassium 4.1 mmol/L (3.5-5.1); Total Protein 5.9 gm/dl (6.0-8.3)
[2024-04-13 05:29] LABS: Troponin I High Sensitivity 1635.9 pg/ml (0-14)
[2024-04-13 06:04] LABS: Appearance Urine Turbid (Clear); Bacteria Urine Automated 4+ (None Seen); Bilirubin Urine 1+ (Negative); Blood Urine 3+ (Negative); Color Urine Orange; Glucose Urine UA Negative (Negative); Ketones Urine Negative (Negative); Leukocyte Esterase Urine 3+ (Negative); Nitrite Urine Negative (Negative); Protein Urine 3+ (Negative); RBC Urine Automated >20 /hpf (0-2); Specific Gravity Urine 1.016 (1.000-1.030); Urobilinogen Urine Negative (Negative); WBC Urine Automated >50 /hpf (0-5); pH Urine 5.5 (4.5-7.5)
[2024-04-13] MEDS: SERTRALINE HCL 50 MG TABLET PO SCH (07:50)
[2024-04-13] MEDS: OXYBUTYNIN CHLORIDE XL 5 MG TABCR PO SCH (07:50)
--- NOTE | 2024-04-13 08:55 | Nephrology Progress Note ---
Date of Service April 13, 2024 Assessment & Plan Admission and Anticipated Discharge Date Admission Date: April 12, 2024 Subjective Assessment & Plan (1) NATALIO (acute kidney injury): Stage III acute kidney injury---Baseline creatinine 1 in 2023. Cause is ischemic ATN in the setting of septic shock though obstructive process also possible. Severe lactic acidosis, though lactate levels improving. Strict intake and output Continue pressors to maintain MAP greater than 60; continue Plasma lyte as tolerated. Continue avoidance of NSAIDs, other nephrotoxins, and, unless lifesaving IV c ontrast Daily basic metabolic panel Would minimize Ditropan dose frequency/use with caution Defer to primary service and critical care when to involve cardiology No indication for emergent dialysis but cannot rule out the need this admission Creat has peaked at 3 it seems and now she feels she has lot more urine although has not been measured. These are good signs Trend CK--still rising so do need to check. Also trend lactate till it is normal. (2) Emphysematous pyelonephritis: -Follow-up pending cultures Continue Zosyn Continue pressors and normal saline at current 125 mL hourly rate; she is already had 2 L of saline as well (3) Right renal mass: For outpatient workup; follows with with [facility] urology and well-known to them; stable in admission imaging S----Feels better. stronger. Still needing levophed. urine is much higher although not mesured. has Poor appetite and Feels pain all over the body Physical Exam Constitutional: well developed, well nourished and cooperative (Sitting in bed on room air); no acute distress Eyes: EOM intact bilaterally ENMT: Ears: no external ear abnormality Nose: no external nose abnormality Mouth: + dry oral mucous membranes Neck: no nuchal rigidity Respiratory: normal respiratory effort Auscultation: + diminished lung sounds Cardiovascular: Rate/Rhythm: + tachycardic and + irregularly irregular Extre mities: no edema Gastrointestinal (Abdomen): abdomen soft nontender Skin: no rashes, warm and dry Neurologic: fluent speech, no tremor Psychiatric: Orientation: alert and oriented x 3 Results & Data Vital Signs (Past 12 Hours) Vital Signs Temp Pulse Resp BP Pulse Ox O2 Del Method O2 Flow Rate 04/13/24 05:21 101 H 25 H 95 04/13/24 05:00 100 H 24 95 04/13/24 04:51 102 H 25 H 95 04/13/24 04:48 106 H 25 H 95 04/13/24 04:30 99 H 25 H 95 04/13/24 04:15 106 H 25 H 96 04/13/24 04:03 101 H 27 H 95 04/13/24 04:00 36.5 C 04/13/24 03:54 107 H 26 H 95 04/13/24 03:42 103 H 28 H 96 04/13/24 03:33 101 H 24 98 04/13/24 03:21 116 H 25 H 97 04/13/24 03:15 102 H 31 H 96 04/13/24 03:14 88/62 L 04/13/24 03:06 109 H 30 H 96 04/13/24 03:00 106 H 16 97 04/13/24 02:30 107 H 26 H 96 04/13/24 02:01 96/58 L 04/13/24 01:54 105 H 26 H 97 04/13/24 01:51 105 H 27 H 96 04/13/24 01:42 105 H 25 H 96 04/13/24 01:30 99 H 23 97 04/13/24 01:12 105 H 26 H 98 04/13/24 00:05 36.6 C 04/13/24 00:00 111/80 04/12/24 23:48 99 H 27 H 96 04/12/24 23:39 105 H 29 H 96 04/12/24 23:24 105 H 28 H 96 04/12/24 22:51 105 H 24 95 04/12/24 22:36 96 H 27 H 96 04/12/24 22:30 100/67 04/12/24 21:57 101 H 28 H 95 04/12/24 21:34 Nasal Cannula 3 04/12/24 21:33 104 H 28 H 95 24 21:21 108 H 28 H 94 04/12/24 21:12 108 H 32 H 95 04/12/24 21:06 115 H 27 H 96 04/12/24 21:00 110/85 04/12/24 20:57 110 H 30 H 95
--- NOTE | 2024-04-13 08:56 | Urology Progress Note ---
Date of Service April 13, 2024 Assessment & Plan (1) Emphysematous pyelonephritis: (2) Nephrolithiasis: Plan: Follow up of right UPJ stone and emphysematous pyelonephritis She is status post emergent right ureteral stent placement with Dr. Leo Remains in ICU on pressors Labs todaycreatinine 3.02, WBC 11.21, hemoglobin 11.0 Urine and blood cultures are showing gram-negative bacilli Continue with broad-spectrum antibiotics and narrow per sensitivity data when available She is tolerating right ureteral stent with minimal bother Patient will [place] with [facility] [place] after acute infection has resolved to discuss definitive stone treatment Continue with supportive care, antibiotics and medical management per ethanol operator/hospitalist service will follow peripherally, please contact our service with any additional questions or concerns Admission and Anticipated Discharge Date Admission Date: April 12, 2024 Subjective Patient seen and examined in ICU this am She is awake and resting in bed, NAD Notes fatigue and low appetite, but generally feeling better today Voiding spontaneously, notes some hematuria postprocedure Notes some mild right flank discomfort Denies nausea, vomiting, fever or chills Review of Systems Constitutional: as per Subjective / HPI Gastrointestinal: as per Subjective / HPI Genitourinary: as per Subjective / HPI Physical Exam Constitutional: no acute distress Respiratory: + tachypneic; no respiratory distress Supplemental oxygen in place Cardiovascular: Rate/Rhythm: + tachycardic Gastrointestinal (Abdomen): Inspection/Auscultation: abdomen normal to inspection Musculoskeletal: Head/Neck/Chest: normocephalic Skin: Ecchymosis noted on face Neurologic: moves all extremities and awake Psychiatric: Orientation: alert and oriented x 3 Results & Data Vital Signs (Past 12 Hours) Vital Signs Temp Pulse Resp BP Pulse Ox O2 Del Method O2 Flow Rate 04/13/24 05:21 101 H 25 H 04/13/24 05:00 100 H 24 04/13/24 04:51 102 H 25 H 04/13/24 04:48 106 H 25 H 04/13/24 04:30 99 H 25 H 04/13/24 04:15 106 H 25 H 04/13/24 04:03 101 H 27 H 04/13/24 04:00 36.5 C 04/13/24 03:54 107 H 26 H 04/13/24 03:42 103 H 28 H 96 04/13/24 03:33 101 H 24 98 04/13/24 03:21 116 H 25 H 97 04/13/24 03:15 102 H 31 H 96 04/13/24 03:14 88/62 L 04/13/24 03:06 109 H 30 H 96 04/13/24 03:00 106 H 16 97 04/13/24 02:30 107 H 26 H 96 04/13/24 02:01 96/58 L 04/13/24 01:54 105 H 26 H 97 04/13/24 01:51 105 H 27 H 96 04/13/24 01:42 105 H 25 H 96 04/13/24 01:30 99 H 23 97 04/13/24 01:12 105 H 26 H 98 04/13/24 00:05 36.6 C 04/13/24 00:00 111/80 04/12/24 23:48 99 H 27 H 96 04/12/24 23:39 105 H 29 H 96 04/12/24 23:24 105 H 28 H 96 04/12/24 22:51 105 H 24 95 04/12/24 22:36 96 H 27 H 96 04/12/24 22:30 100/67 04/12/24 21:57 101 H 28 H 95 04/12/24 21:34 Nasal Cannula 3 04/12/24 21:33 104 H 28 H 95 04/12/24 21:21 108 H 28 H 94 04/12/24 21:12 108 H 32 H 95 04/12/24 21:06 115 H 27 H 96 04/12/24 21:00 110/85 04/12/24 20:57 110 H 30 H 95 04/12/24 20:54 117 H 23 95 PG Care Time/CCT Total # of Minutes Spent Total Time Spent with Patient: Total time spent is greater than 50% in coordination of care (as documented) at patient's floor/unit and/or counseling patient: Coding Level of Care Code 83219 SUB INP/OBS CARE 12/03MIN Diagnoses Emphysematous pyelonephritis N12 Nephrolithiasis N20.0
--- NOTE | 2024-04-13 10:11 | Critical Care Progress Note ---
Date of Service April 13, 2024 Assessment & Plan (1) Septic shock: Plan: Reason Critically Ill: 78-year-old female with past medical history of persistent atrial fibrillation, and recurrent UTIs presents to the ICU with septic shock requiring vasopressor support after undergoing right ureteral stent for 15 mm obstructing ureteral stone with hydronephrosis and emphysematous pyelonephritis. Neuro - [facility] ICU: Negative Cardiac - E. coli septic shock See ID for treatment of infectious process below. Currently requiring vasopressor support to maintain MAP greater than 65 -Weaning vasoactive's should be off in the next 12 to 24 hours Elevated troponintroponin of 748 in the setting of ARF and septic shock, expect this would be demand ischemia - EKG with atrial fibrillation, no ST elevation. QTc 475 - Patient previously on ASA and anticoagulated on Eliquis. Holding anticoagulation due to procedure Persistent atrial fibrillationrestart Eliquis Respiratory - No history of pulmonary disease. Currently maintaining oxygen saturation on room air. Continuous monitoring on pulse ox GI - Renal diet RENAL/LYTES - NATALIO Likely multifactorial in the setting of sepsis with hypotension, hydronephrosis with right ureteral calculi, and pyelonephritis. - S/p right ureteral stent. Management per urology Rhabdomyolysis: Resolved - Strict I's and O's S/p right ureteral stent for obstructing calculi. Management per urology ENDO - No history of diabetes. Currently euglycemic. ICU hyperglycemic protocol HEME - H&H stable, monitor routine CBC ID - Sepsis. E. coli, continue with broad-spectrum antibiotics until speciation given ongoing vasoactive requirement LINES/IV ACCESS - Peripheral IVs. DVT PROPHYLAXIS - SCDs, - restart eliquis, indication: A-fib I have personally spent 40 minutes of critical care time in the direct ma nagement of this patient. This is a life/limb threatening event. This includes time spent evaluating patient, direct bedside care, chart review, placing orders, interpretation of diagnostic studies, discussion with consultants, patient, and family members, as well as other required patient management activities. This time is exclusive of all separately billable procedures, and teaching time and separate from and in addition to any other critical care service time. (2) Emphysematous pyelonephritis: (3) Hydronephrosis with obstructing calculus: (4) NATALIO (acute kidney injury): (5) Elevated troponin: (6) Persistent atrial fibrillation: Admission and Anticipated Discharge Date Admission Date: April 12, 2024 Subjective Feels better than yesterday. Generally no complaint. Hopes to get out of the ICU in the next 1 to 2 days. Physical Exam Physical Exam: General: Alert. nontoxic. Skin: Warm, dry, Head: Atraumatic Ears, nose, mouth and throat: airway patent Cardiovascular: Normal peripheral perfusion Respiratory: no respiratory distress Gastrointestinal: Non distended Musculoskeletal: No deformity Results & Data Results & Data Vital Signs (Past 12 Hours) Vital Signs Temp Pulse Resp BP Pulse Ox 04/13/24 05:21 101 H 25 H 95 04/13/24 05:00 100 H 24 95 04/13/24 04:51 102 H 25 H 95 04/13/24 04:48 106 H 25 H 95 04/13/24 04:30 99 H 25 H 95 04/13/24 04:15 106 H 25 H 96 04/13/24 04:03 101 H 27 H 95 04/13/24 04:00 36.5 C 04/13/24 03:54 107 H 26 H 95 04/13/24 03:42 103 H 28 H 96 04/13/24 03:33 101 H 24 98 04/13/24 03:21 116 H 25 H 97 04/13/24 03:15 102 H 31 H 96 04/13/24 03:14 88/62 L 04/13/24 03:06 109 H 30 H 96 04/13/24 03:00 106 H 16 97 04/13/24 02:30 107 H 26 H 96 04/13/24 02:01 96/58 L 04/13/24 01:54 105 H 26 H 97 04/13/24 01:51 105 H 27 H 96 04/13/24 01:42 105 H 25 H 96 04/13/24 01:30 99 H 23 97 04/13/24 01:12 105 H 26 H 98 04/13/24 00:05 36.6 C 04/13/24 00:00 111/80 04/12/24 23:48 99 H 27 H 96 04/12/24 23:39 105 H 29 H 96 04/12/24 23:24 105 H 28 H 96 04/12/24 22:51 105 H 24 95 04/12/24 22:36 96 H 27 H 96 04/12/24 22:30 100/67 Critical Care Results & Data Vital Signs (Past 12 Hours) Vital Signs Temp Pulse Resp BP Pulse Ox 04/13/24 05:21 101 H 25 H 95 04/13/24 05:00 100 H 24 95 04/13/24 04:51 102 H 25 H 95 04/13/24 04:48 106 H 25 H 95 04/13/24 04:30 99 H 25 H 95 04/13/24 04:15 106 H 25 H 96 04/13/24 04:03 101 H 27 H 95 04/13/24 04:00 36.5 C 04/13/24 03:54 107 H 26 H 95 04/13/24 03:42 103 H 28 H 96 04/13/24 03:33 101 H 24 98 04/13/24 03:21 116 H 25 H 97 04/13/24 03:15 102 H 31 H 96 04/13/24 03:14 88/62 L 04/13/24 03:06 109 H 30 H 96 04/13/24 03:00 106 H 16 97 04/13/24 02:30 107 H 26 H 96 04/13/24 02:01 96/58 L 04/13/24 01:54 105 H 26 H 97 04/13/24 01:51 105 H 27 H 96 04/13/24 01:42 105 H 25 H 96 04/13/24 01:30 99 H 23 97 04/13/24 01:12 105 H 26 H 98 Lab & Micro Results (Past 24 Hours) RBC 4.03 M/uL (4.20-5.40) L 04/13/24 WBC 11.21 K/ul (4.8-10.8) H 04/13/24 Hgb 11.0 g/dl (12.0-16.0) L 04/13/24 Hct 34.2 % (37.0-47.0) L 04/13/24 MCV 84.9 fL (80.0-100.0) 04/13/24 MCH 27.3 pg (25.0-34.0) 04/13/24 MCHC 32.2 g/dL (32.0-36.0) 04/13/24 RDW Standard Deviation 46.8 fL (36.4-46.3) H 04/13/24 RDW Coefficient of Variation 15.2 % (11.5-14.5) H 04/13/24 Plt Count 99 K/uL (130-400) L 04/13/24 MPV 13.8 fL (9.4-12.4) H 04/13/24 Na 135 mmol/L (136-145) L 04/13/24 K 4.1 mmol/L (3.5-5.1) 04/13/24 Cl 104 mmol/L (98-107) 04/13/24 CO2 18 mmol/L (21-32) L 04/13/24 Anion Gap 13 (3-11) H 04/13/24 BUN 48 mg/dl (6-23) H 04/13/24 Creatinine 3.02 mg/dl (0.6-1.2) H 04/13/24 Estimated GFR ( Amer) 16.5 ml/min 04/13/24 Estimated GFR (Non-Af Amer) 14.3 ml/min 04/13/24 BUN/Creatinine Ratio 15.9 (10-20) 04/13/24 Glu 88 mg/dl (70-99(Fasting)) 04/13/24 Ca 7.1 mg/dl (8.6-10.3) L 04/13/24 Phosphorus Level 4.8 mg/dl (2.5-4.9) 04/13/24 Total Bilirubin 1.2 mg/dl (0.2-1.0) H 04/13/24 AST 126 U/L (13-39) H 04/13/24 ALT 47 U/L (7-52) 04/13/24 Alkaline Phosphatase 71 U/L (34-104) 04/13/24 TP 5.9 gm/dl (6.0-8.3) L 04/13/24 Albumin 2.8 gm/dl (3.4-5.0) L 04/13/24 Globulin 3.1 gm/dl (2.5-4.0) 04/13/24 Albumin/Globulin Ratio 0.9 (0.9-2) 04/13/24 Mg 1.7 mg/dl (1.7-2.4) 04/13/24 04:46 Calcium Level 7.1 mg/dl (8.6-10.3) L 04/13/24 04:46 Microbiology 04/12/24 11:17 Aerobic Blood Culture - Preliminary Blood Gram negative bacilli 04/12/24 10:42 Aerobic Blood Culture - Preliminary Blood Gram negative bacilli Anaerobic Blood Culture - Preliminary Gram negative bacilli Diagnostic Findings (Past 24 Hours) Abdomen Fluoroscopy 04/12/24 00:00 FL KUB CLINICAL HISTORY: RIGHT STENT PLACEMENT COMPARISON STUDY: None. FLUOROSCOPY TIME: 12 seconds FLUOROSCOPY IMAGES: 3 Ka,r: 4.2 mGy FINDINGS: Fluoroscopic spot images demonstrate a guidewire and stent within the right renal collecting system. IMPRESSION: Fluoroscopic assistance as above. ACT 112: Negative or not required by law. Electronically signed by: Boy Abel M.D. 04/12/2024 3:45 PM Abdomen/Pelvis CT 04/12/24 12:13 CT SCAN OF THE ABDOMEN AND PELVIS WITHOUT IV CONTRAST CLINICAL HISTORY: Gastroenteritis. Hypotension. COMPARISON STUDY: Abdominal CT dated 02/28/2023. TECHNIQUE: CT scan of the abdomen and pelvis is performed from the lung bases to the proximal femora. Images are reviewed in the axial, sagittal, and coronal planes. IV contrast was not administered for this examination. Note that the examination was performed in suboptimal fashion without oral and IV contrast. A dose lowering technique was utilized adhering to the principles of ALARA. CT DOSE: 1489.07 mGy.cm FINDINGS: Lung bases: The heart is top normal for projection noting trace pericardial effusion. There is diminished attenuation of the cardiac blood pool as compared to the myocardium suggesting anemia. There are small right and trace left pleural effusions with dependent atelectasis. Liver: The unenhanced liver is normal in size, contour, and attenuation. There is no intrahepatic biliary ductal dilatation. Gallbladder: Surgically absent noting clips in the gallbladder fossa. Spleen: Normal in size and attenuation. Pancreas: The unenhanced pancreas is atrophic and grossly unremarkable. Adrenal glands: Unremarkable. Kidneys: The unenhanced kidneys demonstrate mild cortical atrophy. There is a 15 mm obstructing calculus at the right ureteropelvic junction seen on axial image #166. This causes moderate right hydronephrosis. There is gas within the right renal collecting system. There are at least 4 additional nonobstructing right renal calculi which measure up to 4 mm. There is a 10 mm calculus in the left renal pelvis, with 2 additional left lower pole calculi measuring up to 3 mm. There is no left ureteral stone or left-sided hydronephrosis. Urothelial thickening is seen in the renal pelvis bilaterally with surrounding inflammation. There is asymmetric right-sided perinephric stranding. A 2.4 cm complex exophytic cyst is again noted on the right. Abdominal vasculature: The abdominal aorta is normal in course and caliber noting mild to moderate atherosclerotic calcification. Stomach and bowel: There is a moderate hiatal hernia. Postsurgical change is seen in the stomach. There is mild to moderate colonic diverticulosis without CT evidence of acute diverticulitis. No bowel obstruction is identified. The appendix is well-visualized and normal. Peritoneum: There is a small volume of pelvic ascites. No intraperitoneal free a ir is seen. There is a fat-containing umbilical hernia. Lymphadenopathy: None. Pelvic viscera: The bladder is decompressed and appears thick-walled. There is intraluminal gas. The uterus is diminutive versus surgically absent. A 5 cm cystic lesion is again seen in the left ovary. Skeletal structures: The skeletal structures are osteopenic. There is moderate lumbosacral spondylosis. Postsurgical changes noted at L5-S1. No lytic or blastic lesions are seen. IMPRESSION: 1. There is a 15 mm obstructing calculus at the right ureteropelvic junction. This causes moderate right hydronephrosis. 2. Additional bilateral renal calculi as above. 3. The bladder appears thick walled and contains intraluminal gas. There is also gas within the right renal collecting system. Correlate with clinical findings and urinalysis for evidence of urinary tract infection. 4. Urothelial thickening is seen within the renal pelvis bilaterally. Perinephric stranding is asymmetrically greater on the right. 5. Small right and trace left pleural effusions. 6. Cardiomegaly and hiatal hernia. 7. Small volume pelvic ascites. 8. Additional findings as above. ACT 112: Negative or not required by law. Electronically signed by: Jersey Gann M.D. 04/12/2024 12:56 PM I & O Totals 24 Hours 04/12/24 04/13/24 04/14/24 06:59 06:59 06:59 Intake Total 5760.694 / 5760.694 1105.973 / 1105.973 Output Total 0 / 0 Balance 5760.694 / 5760.694 1105.973 / 1105.973 Cumulative 04/12/24 10:07 thru 04/13/24 12:05 Intake Total 6866.667 Output Total 0 Balance 6866.667 RT Ventilator Mngmt (Last Documented) Ventilator Ordered Settings Respiratory Rate 25 04/13/24 05:21 Ventilator - PT Measurements Respiratory Rate 25 Coding Level of Care Code 92876 CRITICAL CARE 1ST 30-74M Diagnoses Septic shock A41.9; R65.21 Emphysematous pyelonephritis N12 Hydronephrosis with obstructing calculus N13.2 NATALIO (acute kidney injury) N17.9 Elevated troponin R79.89 Persistent atrial fibrillation I48.19
[2024-04-13] MEDS: APIXABAN 5 MG TABLET PO SCH (11:41)
--- NOTE | 2024-04-13 16:06 | Hospitalist Progress Note ---
Date of Service April 13, 2024 Assessment & Plan (1) Septic shock: Plan: Iram Valentino is a 78y/o F with PMHx of prediabetes, paraesophageal hiatal hernia, persistent afib [on Eliquis], urinary incontinence, recurrent UTI and other problems listed below who presented to the ED via EMS for medical evaluation s/p fall this morning + nausea/diarrhea x 4 days and was found to have a 15mm obstructing stone at the R ureteropelvic junction causing moderate R hydronephrosis and emphysematous pyelonephritis. Patient does note an extensive history of recurrent UTIs. Patient notes she has had ~3 UTIs this year. She also has a hx of kidney stones, per my discussion w/ the patient. * Per [facility] documentation, most recent urine culture grew the following: E. coli and Aerococcus urinae --> Completed 03/25/2024. Secondary to hydronephrosis with obstructive calculus Status post cystoscopy, right ureteral stent placement on 04/12/2024 Appreciate urology input and recommendation E. coli septic shock-has been on intravenous Zosyn Gram-negative bacilli bacteremia further identification and sensitivities are pending Requiring pressor agents to maintain blood pressure Appreciate esthetician makeup artist input and recommendation Trying to wean off pressor agents She has been feeling a little better (2) Hydronephrosis with obstructing calculus: Plan: Status post cystoscopy and right ureteric stent placement (3) Acute kidney failure: Plan: Baseline creatinine of 1 in 2023 Seems to have ischemic ATN with septic shock and creatinine went up to 3.0 Appreciate nephrology input and recommendation Has been getting intravenous fluid Not having enough urine output Will avoid any NSAIDs or other nephrotoxins No indication for emergent dialysis yet (4) Elevated troponin: Plan: Initial troponin on admission was 748 and that went up to 2293 and since then has been improving Likely secondary to stress-induced and shock with ATN EKG showed atrial fibrillation without any acute ST-T wave changes Echo of the heart showed-atrial fibrillation with ventricular rate in the range of 100 208, mild concentric LVH, LV wall motion is normal, LV systolic function is normal with EF 55 to 60%, aortic valve sclerosis mild without significant stenosis, pulmonary artery systolic pressure estimated to be 40 mmHg Doubt any ACS Mild rhabdomyolysis CK was 805 Contributed by NATALIO (5) Emphysematous pyelonephritis: Plan: As above (6) Metabolic acidosis: Plan: No leukocytosis. Initial lactate 8.1, repeat lactate ~2 hours later --> 6.2 [ downtrending]. Evidence of metabolic acidosis with anion gap 17. Total bili 1.4, AST 69, and Alk Phos 124. Gap seems to be closed Will monitor lactic acid (7) Gastroenteritis: Plan: As per above: * Head CT displayed no acute injury or cranial abnormality. * Face CT showed no acute facial bone fracture. However, there is nonspecific left supraclavicular lymphadenopathy noted. * Cervical spine CT revealed no evidence of fracture or subluxation involving the cervical spine; osteopenia and spondylitic changes noted. -Stool culture NEGATIVE. Will continue aggressive IVF, IV Zosyn ordered. -PRN IV Zofran in place, monitor I&O's [as per above, Iniguez catheter in place]. (8) NATALIO (acute kidney injury): Plan: Total CK 805. Initial troponin 748.3, repeat troponin ~2 hours later --> 759.8 [ trending upwards]. Evidence of NATALIO with creatinine 2.98. BUN 39, GFR 14.5 --> Appears to be in ACUTE KIDNEY FAILURE. Chest x-ray revealed no acute process. Head CT displayed no acute injury or cranial abnormality. Face CT showed no acute facial bone fracture. However, there is nonspecific left supraclavicular lymphadenopathy noted. Cervical spine CT revealed no evidence of fracture or subluxation involving the cervical spine; osteopenia and spondylitic changes noted. As previously eluded to, CTAB revealed the following: * 15 mm obstructing calculus at the right ureteropelvic junction, causing moderate right hydronephrosis. * Additional bilateral renal calculi per imaging report. Bladder appears thick- walled and contains intraluminal gas. There is also gas within the right renal collecting system. * Urothelial thickening is seen within the renal pelvis bilaterally, perinephric stranding is asymmetrically greater on the right. * Small right and trace left pleural effusions, cardiomegaly and hiatal hernia. Small volume pelvic ascites. Of note, a Iniguez catheter was placed in the ED. PATIENT MEETS SEPSIS CRITERIA GIVEN FINDINGS ABOVE. She was administered the following in the ED: IV Zosyn 4.5g and 2.5L IV NSS. Urology [Dr. Dior] was consulted by ED provider (Teofilo Lewis PA-C) following discovery of CTAB findings above. Her SBP consistently remained low in the 60-80s in the ED, thus prompting administration of Levophed per Dr. Dior's orders. Patient was quickly taken to the OR for cystoscopy and R ureteral stent placement. * She will require ICU placement following the procedure given administration of a pressor agent/current level of care requirements. -Continuous cardiac monitoring --> Afib w/ RVR in ED. -RVP, Lyme disease screening negative. -Ordered additional IVF, IV Zosyn to begin upon transfer. -UA/urine culture pending, uncollected as of now but orders are in place. -Nephrology consult ordered, appreciate their recommendation(s)/input. -Measure I&O's, Iniguez catheter in place as per above. Blood culture received, results pending. -Repeat CMP, troponin and CBC (no diff) in AM --> Monitor LFTs given recent bump. Any additional AM labs per ICU. (9) Fall: (10) Dehydration symptoms: (11) Persistent atrial fibrillation: Plan: Has been back on Eliquis (12) Chronic anticoagulation: Plan: Per my interpretation, EKG performed in the ED revealed the following: afib w/ RVR, HR 106bpm, QRS Dur 96ms and QT/QTc 358/475ms. When compared to EKG done 01/07/2017: afib has replaced sinus rhythm, nonspecific T wave abnormality now evident in anterior leads and QT has lengthened. Patient does follow with [facility]. Per [facility] documentation, it appears that she is scheduled to have a Watchman device placed in June (06/23/24) [place] [facility] [place]Continuous cardiac monitoring as per above, HOLD Eliquis and aspirin for now --> Plt count on admission = 83. (13) Hyperlipidemia: Plan: -Will HOLD statin therapy for now given current evidence of acute renal failure/NATALIO. (14) Prediabetes: Plan: Most recent Hgb A1C 5.9, completed 02/20/24. -Diet-controlled, no need to repeat Hgb A1C at this time given findings above. (15) Depression: Plan: -Can continue [employer] Zoloft while hospitalized. (16) Urinary incontinence: Plan: -Can continue [employer] trospium chloride therapy while hospitalized. -Iniguez catheter in place as above, continue to closely monitor I&O's throughout hospitalization. (17) Hypertension: Plan: -Will HOLD metoprolol succinate for now --> Most recently recorded BP 73/52, SBP appears to be holding ~80s in the ED. -Can reassess need throughout hospitalization, coordinate restarting BB therapy as appropriate. DVT Prophylaxis: SCDs - For now. Code Status: Full Code PCP: Arlyn Vallecillo DO Dispo: Admit to ICU --> PATIENT WILL BE PLACED IN ICU FOLLOWING UROLOGICAL PROCEDURE W/ DR. DIOR. * Coordinate care w/ ICU to determine when patient will be stable enough to transition to PCU level of care. Admission and Anticipated Discharge Date Admission Date: April 12, 2024 Subjective 04/13/2024 The patient was seen and examined in ICU She has been feeling much better today Remain generally weak and lethargic Still remains on pressors and trying to wean off it No fever and no chills Review of Systems Review of Systems: All systems reviewed and are unremarkable except as noted below Physical Exam Physical Exam: Lying in bed comfortably Constitutional: well developed, well nourished and + ill appearing Eyes: PERRL, conjunctivae normal, anicteric sclerae ENMT: external ear and nose normal, oropharynx normal Neck: trachea midline, no thyromegaly Respiratory: no respiratory distress Auscultation: + diminished lung sounds and + crackles (Minimal bibasilar crackles) Cardiovascular: Rate/Rhythm: regular rate, regular rhythm and + tachycardic Heart Sounds: normal S1 and normal S2; no murmur Extremities: no edema Gastrointestinal (Abdomen): Inspection/Auscultation: normal bowel sounds; abdomen not distended Percussion/Palpation: abdomen soft; abdomen nontender Musculoskeletal: No acute arthritis involving any of the joint Neurologic: normal touch/pain/proprioception and moves all extremities; no focal motor deficits Lymphatic: no cervical or axillary lymphadenopathy Results & Data Results & Data Vital Signs (Past 12 Hours) Vital Signs Temp Pulse Resp BP Pulse Ox 04/13/24 12:33 100 H 24 91 04/13/24 12:27 102 H 31 H 92 04/13/24 12:00 99 H 24 93 04/13/24 11:50 36.7 C 04/13/24 11:45 102 H 28 H 95 04/13/24 11:30 97 H 33 H 94 04/13/24 11:18 94 H 31 H 93 04/13/24 11:00 95 H 23 04/13/24 10:46 103/76 04/13/24 10:45 94 H 34 H 93 04/13/24 10:30 99 H 22 90 04/13/24 10:21 102 H 24 91 04/13/24 10:16 98/73 L 04/13/24 09:45 97 H 25 H 96 04/13/24 09:30 101 H 17 94 04/13/24 09:18 105 H 34 H 95 04/13/24 09:09 105 H 23 95 04/13/24 08:45 109 H 31 H 04/13/24 08:36 113 H 26 H 96 04/13/24 08:27 105 H 31 H 97 04/13/24 08:05 155/92 H 04/13/24 08:03 107 H 25 H 04/13/24 07:51 36.7 C 04/13/24 07:36 110 H 21 91 04/13/24 07:24 105 H 22 98 04/13/24 07:00 112 H 34 H 96 04/13/24 05:21 101 H 25 H 04/13/24 05:00 100 H 24 04/13/24 04:51 102 H 25 H 95 04/13/24 04:48 106 H 25 H 04/13/24 04:30 99 H 25 H 04/13/24 04:15 106 H 25 H 04/13/24 04:03 101 H 27 H 04/13/24 04:00 36.5 C Laboratory Results Short CBC 04/13/24 Range/Units 04:46 WBC 11.21 H (4.8-10.8) K/ul Hgb 11.0 L (12.0-16.0) g/dl Hct 34.2 L (37.0-47.0) % Plt Count 99 L (130-400) K/uL BMP 04/12/24 04/13/24 19:18 04:46 Sodium 135 L 135 L Potassium 4.2 4.1 Chloride 106 104 Carbon Dioxide 17 L 18 L BUN 41 H 48 H Creatinine 2.96 H 3.02 H Glucose 84 88 Calcium 7.5 L 7.1 L Cardiac Enzymes 04/12/24 Range/Units 19:18 Total Creatine Kinase 1738 H (26-192) U/L Liver Function 04/13/24 Range/Units 04:46 Total Bilirubin 1.2 H (0.2-1.0) mg/dl AST 126 H (13-39) U/L ALT 47 (7-52) U/L Alkaline Phosphatase 71 (34-104) U/L Albumin 2.8 L (3.4-5.0) gm/dl Urine 04/13/24 Range/Units Unknown Urine Color [place] Urine Appearance Turbid A (Clear) Urine pH 5.5 (4.5-7.5) Ur Specific [place] 1.016 (1.000-1.030) Urine Protein 3+ H (Negative) Urine Glucose (UA) Negative (Negative) Medications Administered Current Inpatient Medications Acetaminophen (Acetaminophen 325 Mg Tab) 650 mg PO Q4H PRN PRN Reason: pain/fever Stop: 05/12/24 15:52 Last Admin: 04/13/24 14:47 Dose: 650 mg Apixaban (Apixaban 5 Mg Tablet) 5 mg PO BID MARY Stop: 05/13/24 10:14 Last Admin: 04/13/24 11:41 Dose: 5 mg Norepinephrine Bitartrate (Levophed/D5w) 4 mg in 250 mls @ 15.12 mls/hr IV .[id number] [facility]; Protocol Stop: 05/12/24 13:14 Last Titration: 04/13/24 13:32 Dose: 0.04 mcg/kg/min, 15.1 mls/hr Parenteral Electrolytes (Plasma-Lyte A Ph 7.4) 1,000 mls @ 125 mls/hr IV .Q8H MARY Stop: 05/12/24 20:14 Last Admin: 04/13/24 11:43 Dose: 125 mls/hr Piperacillin Sod/Tazobactam (Sod 4.5 gm/ Dextrose) 100 mls @ 25 mls/hr IV Q8H [facility]; Protocol Stop: 04/27/24 15:59 Ondansetron HCl (Ondansetron Inj 2 Mg/Ml 2 Ml Vial) 4 mg IV Q6H PRN PRN Reason: Nausea Stop: 05/12/24 15:52 Oxybutynin Chloride (Oxybutynin Chloride Xl 5 Mg Tabcr) 5 mg PO QAM [facility]; Protocol Stop: 05/13/24 08:59 Last Admin: 04/13/24 07:50 Dose: 5 mg Polyethylene Glycol (Polyethylene (Miralax) 17 Gm Pack) 17 gm PO DAILY PRN PRN Reason: Constipation Stop: 05/12/24 15:52 Sertraline HCl (Sertraline Hcl 50 Mg Tablet) 150 mg PO QAM [facility] Stop: 05/13/24 08:59 Last Admin: 04/13/24 07:50 Dose: 150 mg (13) Hyperlipidemia Hyperlipidemia type: unspecified Qualified Code(s): E78.5 - Hyperlipidemia, unspecified (15) Depression Depression Type: unspecified Qualified Code(s): F32.A - Depression, unspecified (16) Urinary incontinence Urinary Incontinence type: unspecified incontinence Qualified Code(s): R32 - Unspecified urinary incontinence (17) Hypertension Hypertension type: unspecified Qualified Code(s): I10 - Essential (primary) hypertension
[2024-04-13] MEDS: PIPERACILLIN/TAZOBACTAM 4.5 GM in DEXTROSE 5% MINI-B 100 ML IV SCH (16:37)
[2024-04-13] MEDS: HYDROCORTISONE SOD 100 MG in SYRINGE 0 ML IV STA (16:38)
[2024-04-14 05:37] LABS: Albumin Globulin Ratio 0.8 (0.9-2); Albumin Level 2.7 gm/dl (3.4-5.0); BUN Creatinine Ratio 21.9 (10-20); Calcium 7.3 mg/dl (8.6-10.3); Creatinine Clr Calc Pharmacy 25.6 ml/min; Est GFR (African American) 23.7 ml/min; Est GFR (Non-African American) 20.5 ml/min; Globulin 3.2 gm/dl (2.5-4.0); Magnesium 2.1 mg/dl (1.7-2.4); Phosphorus 4.3 mg/dl (2.5-4.9); Potassium 3.6 mmol/L (3.5-5.1); Total Protein 5.9 gm/dl (6.0-8.3)
[2024-04-14 06:37] LABS: Basophils # (auto) 0.03 K/uL (0.00-0.20); Basophils % (auto) 0.4 %; Dohle Bodies 1+; Echinocytes 3+; Eosinophils # (auto) 0.01 K/uL (0.00-0.50); Eosinophils % (auto) 0.1 %; Hematocrit (blood only) 32.4 % (37.0-47.0); Hemoglobin 10.6 g/dl (12.0-16.0); Immature Granulocytes # (auto) 0.02 K/uL (0.01-0.20); Immature Granulocytes % (auto) 0.3 %; Lymphocytes # (auto) 0.26 K/uL (1.20-3.40); Lymphocytes % (auto) 3.5 %; Mean Corpuscular Hemoglobin 27.7 pg (25.0-34.0); Mean Corpuscular Hgb Conc 32.7 g/dL (32.0-36.0); Mean Corpuscular Volume 84.8 fL (80.0-100.0); Mean Platelet Volume 13.7 fL (9.4-12.4); Monocytes # (auto) 0.48 K/uL (0.11-0.59); Monocytes % (auto) 6.5 %; Neutrophils # (auto) 6.61 K/uL (1.40-6.50); Neutrophils % (auto) 89.2 %; Platelet Count 88 K/uL (130-400); Platelet Estimate Decreased (Normal); Polychromasia 1+; RDW Standard Deviation 46.4 fL (36.4-46.3); Red Blood Count 3.82 M/uL (4.20-5.40); Toxic Granulation 1+; White Blood Count 7.41 K/ul (4.8-10.8)
--- NOTE | 2024-04-14 08:01 | Critical Care Progress Note ---
Date of Service April 14, 2024 Assessment & Plan (1) Septic shock: Plan: Neuro - [facility] ICU: Negative Cardiac - E. coli septic shockresolved, off vasoactive's this morning if she remains off for greater than 4 hours stable for downgrade out of ICU Elevated troponintype II ischemia improved Persistent atrial fibrillationrestart Eliquis Respiratory - No history of pulmonary disease. Currently maintaining oxygen saturation on room air. Continuous monitoring on pulse ox GI - Renal diet RENAL/LYTES - AKIcontinuing improvement likely multifactorial in the setting of sepsis with hypotension, hydronephrosis with right ureteral calculi, and pyelonephritis. - S/p right ureteral stent. Management per urology Rhabdomyolysis: Resolved - Strict I's and O's S/p right ureteral stent for obstructing calculi. Management per urology ENDO - No history of diabetes. Currently euglycemic. ICU hyperglycemic protocol HEME - H&H stable, monitor routine CBC ID - Sepsis. E. coli urinary tract infection with bacteremia, de-escalate to Rocephin 14 days duration from negative blood culture LINES/IV ACCESS - Peripheral IVs. DVT PROPHYLAXIS - SCDs, - restart eliquis, indication: A-fib I have personally spent 35 minutes of critical care time in the direct management of this patient. This is a life/limb threatening event. This includes time spent evaluating patient, direct bedside care, chart review, placing orders, interpretation of diagnostic studies, discussion with consultants, patient, and family members, as well as other required patient management activities. This time is exclusive of all separately billable procedures, and teaching time and separate from and in addition to any other critical care service time. (2) Emphysematous pyelonephritis: (3) Hydronephrosis with obstructing calculus: (4) NATALIO (acute kidney injury): (5) Elevated troponin: (6) Persistent atrial fibrillation: Admission and Anticipated Discharge Date Admission Date: April 12, 2024 Subjective No complaints, feels better than yesterday. Hopeful to be downgraded soon Physical Exam Physical Exam: General: Alert. nontoxic. Skin: Warm, dry, Head: Atraumatic Ears, nose, mouth and throat: airway patent Cardiovascular: Normal peripheral perfusion Respiratory: no respiratory distress Gastrointestinal: Non distended Musculoskeletal: No deformity Results & Data Results & Data Vital Signs (Past 12 Hours) Vital Signs Temp Pulse Resp BP Pulse Ox 04/14/24 05:00 76 21 95 04/14/24 04:51 90 27 H 99 04/14/24 04:45 115 H 28 H 97 04/14/24 04:30 87 21 99 04/14/24 04:30 140/93 04/14/24 04:21 93 H 23 93 04/14/24 04:12 88 21 95 04/14/24 04:06 82 22 96 04/14/24 03:57 85 20 96 04/14/24 03:45 85 21 96 04/14/24 03:30 36.6 C 04/14/24 03:21 88 21 96 04/14/24 03:18 89 21 97 04/14/24 03:09 96 H 31 H 94 04/14/24 02:51 80 22 95 04/14/24 02:42 93 H 22 95 04/14/24 02:21 89 23 94 04/14/24 02:15 87 23 95 04/14/24 02:00 125/76 04/14/24 02:00 88 25 H 96 04/14/24 01:51 90 21 96 04/14/24 01:36 95 H 23 96 04/14/24 01:15 86 24 96 04/14/24 00:51 90 23 95 04/14/24 00:36 89 22 95 04/14/24 00:03 87 24 95 04/13/24 23:54 102 H 25 H 94 04/13/24 23:36 86 25 H 94 04/13/24 23:21 108 H 25 H 96 04/13/24 23:15 87 27 H 95 04/13/24 22:54 118 H 27 H 97 04/13/24 22:42 94 H 24 97 04/13/24 22:30 109/67 04/13/24 22:30 95 H 32 H 94 04/13/24 22:01 98/57 L 04/13/24 21:57 105 H 22 96 04/13/24 21:54 99 H 34 H 93 04/13/24 21:48 92 H 31 H 97 04/13/24 21:36 97 H 29 H 97 04/13/24 21:31 103/73 04/13/24 21:27 92 H 26 H 97 04/13/24 21:21 92 H 18 96 04/13/24 21:15 93 H 25 H 96 04/13/24 21:00 36.6 C 04/13/24 21:00 97 H 25 H 97 04/13/24 21:00 99/66 L 04/13/24 20:42 98 H 35 H 95 04/13/24 20:30 89 36 H 96 04/13/24 20:21 108 H 28 H 97 04/13/24 20:18 94 H 27 H 95 Critical Care Results & Data Vital Signs (Past 12 Hours) Vital Signs Temp Pulse Resp BP Pulse Ox 04/14/24 05:00 76 21 95 04/14/24 04:51 90 27 H 99 04/14/24 04:45 115 H 28 H 97 04/14/24 04:30 87 21 99 04/14/24 04:30 140/93 04/14/24 04:21 93 H 23 93 04/14/24 04:12 88 21 95 04/14/24 04:06 82 22 96 04/14/24 03:57 85 20 96 04/14/24 03:45 85 21 96 04/14/24 03:30 36.6 C 04/14/24 03:21 88 21 96 04/14/24 03:18 89 21 97 04/14/24 03:09 96 H 31 H 94 04/14/24 02:51 80 22 95 04/14/24 02:42 93 H 22 95 04/14/24 02:21 89 23 94 04/14/24 02:15 87 23 95 04/14/24 02:00 125/76 04/14/24 02:00 88 25 H 96 04/14/24 01:51 90 21 96 04/14/24 01:36 95 H 23 96 04/14/24 01:15 86 24 96 04/14/24 00:51 90 23 95 04/14/24 00:36 89 22 95 04/14/24 00:03 87 24 95 04/13/24 23:54 102 H 25 H 94 04/13/24 23:36 86 25 H 94 04/13/24 23:21 108 H 25 H 96 04/13/24 23:15 87 27 H 95 04/13/24 22:54 118 H 27 H 97 04/13/24 22:42 94 H 24 97 04/13/24 22:30 109/67 04/13/24 22:30 95 H 32 H 94 04/13/24 22:01 98/57 L 04/13/24 21:57 105 H 22 96 04/13/24 21:54 99 H 34 H 93 04/13/24 21:48 92 H 31 H 97 04/13/24 21:36 97 H 29 H 97 04/13/24 21:31 103/73 04/13/24 21:27 92 H 26 H 97 04/13/24 21:21 92 H 18 96 04/13/24 21:15 93 H 25 H 96 04/13/24 21:00 36.6 C 04/13/24 21:00 97 H 25 H 97 04/13/24 21:00 99/66 L 04/13/24 20:42 98 H 35 H 95 04/13/24 20:30 89 36 H 96 04/13/24 20:21 108 H 28 H 97 04/13/24 20:18 94 H 27 H 95 Lab & Micro Results (Past 24 Hours) RBC 3.82 M/uL (4.20-5.40) L 04/14/24 WBC 7.41 K/ul (4.8-10.8) 04/14/24 Hgb 10.6 g/dl (12.0-16.0) L 04/14/24 Hct 32.4 % (37.0-47.0) L 04/14/24 MCV 84.8 fL (80.0-100.0) 04/14/24 MCH 27.7 pg (25.0-34.0) 04/14/24 MCHC 32.7 g/dL (32.0-36.0) 04/14/24 RDW Standard Deviation 46.4 fL (36.4-46.3) H 04/14/24 RDW Coefficient of Variation 15.0 % (11.5-14.5) H 04/14/24 Plt Count 88 K/uL (130-400) L 04/14/24 MPV 13.7 fL (9.4-12.4) H 04/14/24 Neutrophils (%) (Auto) 89.2 % 04/14/24 Lymphocytes (%) (Auto) 3.5 % 04/14/24 Monocytes # (Auto) 0.48 K/uL (0.11-0.59) 04/14/24 Eosinophils # (Auto) 0.01 K/uL (0.00-0.50) 04/14/24 Immature Granulocyte % (Auto) 0.3 % 04/14/24 Neutrophils # (Auto) 6.61 K/uL (1.40-6.50) H 04/14/24 Lymphocytes # (Auto) 0.26 K/uL (1.20-3.40) L 04/14/24 Monocytes # (Auto) 0.48 K/uL (0.11-0.59) 04/14/24 Eosinophils # (Auto) 0.01 K/uL (0.00-0.50) 04/14/24 Basophils # (Auto) 0.03 K/uL (0.00-0.20) 04/14/24 Immature Granulocyte # (Auto) 0.02 K/uL (0.01-0.20) 4 Polychromasia 1+ 04/14/24 Echinocytes 3+ 04/14/24 Toxic Granulation 1+ 04/14/24 Dohle Bodies 1+ 04/14/24 Na 137 mmol/L (136-145) 04/14/24 K 3.6 mmol/L (3.5-5.1) 04/14/24 Cl 104 mmol/L (98-107) 04/14/24 CO2 23 mmol/L (21-32) 04/14/24 Anion Gap 10 (3-11) 04/14/24 BUN 49 mg/dl (6-23) H 04/14/24 Creatinine 2.24 mg/dl (0.6-1.2) H 04/14/24 Estimated GFR ( Amer) 23.7 ml/min 04/14/24 Estimated GFR (Non-Af Amer) 20.5 ml/min 04/14/24 BUN/Creatinine Ratio 21.9 (10-20) H 04/14/24 Glu 120 mg/dl (70-99(Fasting)) H 04/14/24 Ca 7.3 mg/dl (8.6-10.3) L 04/14/24 Phosphorus Level 4.3 mg/dl (2.5-4.9) 04/14/24 Total Bilirubin 1.0 mg/dl (0.2-1.0) 04/14/24 AST 96 U/L (13-39) H 04/14/24 ALT 52 U/L (7-52) 04/14/24 Alkaline Phosphatase 75 U/L (34-104) 04/14/24 TP 5.9 gm/dl (6.0-8.3) L 04/14/24 Albumin 2.7 gm/dl (3.4-5.0) L 04/14/24 Globulin 3.2 gm/dl (2.5-4.0) 04/14/24 Albumin/Globulin Ratio 0.8 (0.9-2) L 04/14/24 Mg 2.1 mg/dl (1.7-2.4) 04/14/24 05:06 Calcium Level 7.3 mg/dl (8.6-10.3) L 04/14/24 05:06 Microbiology 04/12/24 11:17 Aerobic Blood Culture - Preliminary Blood Escherichia coli Anaerobic Blood Culture - Final 04/12/24 10:42 Aerobic Blood Culture - Preliminary Blood Escherichia coli Anaerobic Blood Culture - Preliminary Escherichia coli 04/13/24 10:31 Aerobic Blood Culture - Preliminary Blood Gram negative bacilli I & O Totals 24 Hours 04/13/24 04/14/24 04/15/24 06:59 06:59 06:59 Intake Total 5760.694 / 5760.694 3559.919 / 3559.919 Output Total 0 / 0 902 / 902 Balance 5760.694 / 5760.694 2657.919 / 2657.919 Cumulative 04/12/24 10:07 thru 04/14/24 05:11 Intake Total 9320.613 Output Total 902 Balance 8418.613 RT Ventilator Mngmt (Last Documented) Ventilator Ordered Settings Respiratory Rate 21 04/14/24 05:00 Ventilator - PT Measurements Respiratory Rate 21 Coding Level of Care Code 30770 CRITICAL CARE 1ST 30-74M Diagnoses Septic shock A41.9; R65.21 Emphysematous pyelonephritis N12 Hydronephrosis with obstructing calculus N13.2 NATALIO (acute kidney injury) N17.9 Elevated troponin R79.89 Persistent atrial fibrillation I48.19
--- NOTE | 2024-04-14 08:49 | Nephrology Progress Note ---
Date of Service April 14, 2024 Assessment & Plan Admission and Anticipated Discharge Date Admission Date: April 12, 2024 Subjective Assessment & Plan (1) NATALIO (acute kidney injury): Stage III acute kidney injury---Baseline creatinine 1 in 2023. Cause is ischemic ATN in the setting of septic shock though obstructive process also possible. Severe lactic acidosis, though lactate levels improving. Strict intake and output Continue avoidance of NSAIDs, other nephrotoxins, and, unless lifesaving IV contrast Daily basic metabolic panel Would minimize Ditropan dose frequency/use with caution Defer to primary service and critical care when to involve cardiology No indication for emergent dialysis but cannot rule out the need this admission Creat has peaked at 3 and now trending down to 2.2 with much more urine output. Now down trending CK. lactate is normal. expect Creat to come down further Can lower the fluid rate to 50 ml/hr or even stop if her PO intake is fine (2) Emphysematous pyelonephritis: Follow-up pending cultures Continue Zosyn (3) Right renal mass: For outpatient workup; follows with with [facility] urology and well-known to them; stable in admission imaging S----Feels better. stronger. Not needing levophed. urine is much higher. Now has started to eat and drink. Physical Exam Constitutional: well developed, well nourished and cooperative (Sitting in bed on room air); no acute distress Eyes: EOM intact bilaterally ENMT: Ears: no external ear abnormality Nose: no external nose abnormality Mouth: + dry oral mucous membranes Neck: no nuchal rigidity Respiratory: normal respiratory effort Auscultation: + diminished lung sounds Cardiovascular: Rate/Rhythm: + tachycardic and + irregularly irregular Extremities: no edema Gastrointestinal (Abdomen): abdomen soft nontender Skin: no rashes, warm and dry Neurologic: fluent speech, no tremor Psychiatric: Orientation: alert and oriented x 3 Results & Data Vital Signs (Past 12 Hours) Vital Signs Temp Pulse Resp BP Pulse Ox O2 Del Method 04/14/24 08:00 Room Air 04/14/24 05:00 76 21 95 04/14/24 04:51 90 27 H 99 04/14/24 04:45 115 H 28 H 97 04/14/24 04:30 87 21 99 04/14/24 04:30 140/93 06/06/24 04:21 93 H 23 93 04/14/24 04:12 88 21 95 04/14/24 04:06 82 22 96 04/14/24 03:57 85 20 96 04/14/24 03:45 85 21 96 04/14/24 03:30 36.6 C 04/14/24 03:21 88 21 96 04/14/24 03:18 89 21 97 04/14/24 03:09 96 H 31 H 94 04/14/24 02:51 80 22 95 04/14/24 02:42 93 H 22 95 04/14/24 02:21 89 23 94 04/14/24 02:15 87 23 95 04/14/24 02:00 125/76 04/14/24 02:00 88 25 H 96 04/14/24 01:51 90 21 96 04/14/24 01:36 95 H 23 96 04/14/24 01:15 86 24 96 04/14/24 00:51 90 23 95 04/14/24 00:36 89 22 95 04/14/24 00:03 87 24 95 04/13/24 23:54 102 H 25 H 94 04/13/24 23:36 86 25 H 94 04/13/24 23:21 108 H 25 H 96 04/13/24 23:15 87 27 H 95 04/13/24 22:54 118 H 27 H 97 04/13/24 22:42 94 H 24 97 04/13/24 22:30 109/67 04/13/24 22:30 95 H 32 H 94 04/13/24 22:01 98/57 L 04/13/24 21:57 105 H 22 96 04/13/24 21:54 99 H 34 H 93 04/13/24 21:48 92 H 31 H 97 04/13/24 21:36 97 H 29 H 97 04/13/24 21:31 103/73 04/13/24 21:27 92 H 26 H 97 04/13/24 21:21 92 H 18 96 04/13/24 21:15 93 H 25 H 96 04/13/24 21:00 36.6 C 04/13/24 21:00 97 H 25 H 97 04/13/24 21:00 99/66 L
[2024-04-14] MEDS: SODIUM CHLORIDE 0.9% 500 ML IV ONE (10:14)
--- NOTE | 2024-04-14 12:51 | Hospitalist Progress Note ---
Date of Service April 14, 2024 Assessment & Plan (1) Septic shock: Plan: Iram Valentino is a 78y/o F with PMHx of prediabetes, paraesophageal hiatal hernia, persistent afib [on Eliquis], urinary incontinence, recurrent UTI and other problems listed below who presented to the ED via EMS for medical evaluation s/p fall this morning + nausea/diarrhea x 4 days and was found to have a 15mm obstructing stone at the R ureteropelvic junction causing moderate R hydronephrosis and emphysematous pyelonephritis. Patient does note an extensive history of recurrent UTIs. Patient notes she has had ~3 UTIs this year. She also has a hx of kidney stones, per my discussion w/ the patient. * Per [facility] documentation, most recent urine culture grew the following: E. coli and Aerococcus urinae --> Completed 03/25/2024. Secondary to hydronephrosis with obstructive calculus Status post cystoscopy, right ureteral stent placement on 04/12/2024 Appreciate urology input and recommendation E. coli septic shock-has been on intravenous Zosyn Gram-negative bacilli bacteremia further identification and sensitivities are pending Requiring pressor agents to maintain blood pressure Appreciate can feeder input and recommendation Off Levophed for the last few hours but the blood pressure seems to be going down Clinically much better today-Will change diet to AHA Has been making out a reasonable amount of urine and the kidney function has been improved (2) Hydronephrosis with obstructing calculus: Plan: Status post cystoscopy and right ureteric stent placement (3) Acute kidney failure: Plan: Baseline creatinine of 1 in 2023 Seems to have ischemic ATN with septic shock and creatinine went up to 3.0 Appreciate nephrology input and recommendation Has been getting intravenous fluid Not having enough urine output Will avoid any NSAIDs or other nephrotoxins No indication for emergent dialysis yet BUN and creatinine are better today Will continue with the current management (4) Elevated troponin: Plan: Initial troponin on admission was 748 and that went up to 2293 and since then has been improving Likely secondary to stress-induced and shock with ATN EKG showed atrial fibrillation without any acute ST-T wave changes Echo of the heart showed-atrial fibrillation with ventricular rate in the range of 100 208, mild concentric LVH, LV wall motion is normal, LV systolic function is normal with EF 55 to 60%, aortic valve sclerosis mild without significant stenosis, pulmonary artery systolic pressure estimated to be 40 mmHg Doubt any ACS Mild rhabdomyolysis CK was 805 Contributed by NATALIO Rhabdomyolysis is improved (5) Emphysematous pyelonephritis: Plan: As above No shortness of breath at rest (6) Metabolic acidosis: Plan: No leukocytosis. Initial lactate 8.1, repeat lactate ~2 hours later --> 6.2 [ downtrending]. Evidence of metabolic acidosis with anion gap 17. Total bili 1.4, AST 69, and Alk Phos 124. Gap seems to be closed Will monitor lactic acid-normalized (7) Gastroenteritis: Plan: As per above: * Head CT displayed no acute injury or cranial abnormality. * Face CT showed no acute facial bone fracture. However, there is nonspecific left supraclavicular lymphadenopathy noted. * Cervical spine CT revealed no evidence of fracture or subluxation involving the cervical spine; osteopenia and spondylitic changes noted. -Stool culture NEGATIVE. Will continue aggressive IVF, IV Zosyn ordered. -PRN IV Zofran in place, monitor I&O's [as per above, Iniguez catheter in place]. (8) NATALIO (acute kidney injury): Plan: Notes from admitting physician: Total CK 805. Initial troponin 748.3, repeat troponin ~2 hours later --> 759.8 [ trending upwards]. Evidence of NATALIO with creatinine 2.98. BUN 39, GFR 14.5 --> Appears to be in ACUTE KIDNEY FAILURE. Chest x-ray revealed no acute process. Head CT displayed no acute injury or cranial abnormality. Face CT showed no acute facial bone fracture. However, there is nonspecific left supraclavicular lymphadenopathy noted. Cervical spine CT revealed no evidence of fracture or subluxation involving the cervical spine; osteopenia and spondylitic changes noted. As previously eluded to, CTAB revealed the following: * 15 mm obstructing calculus at the right ureteropelvic junction, causing moderate right hydronephrosis. * Additional bilateral renal calculi per imaging report. Bladder appears thick- walled and contains intraluminal gas. There is also gas within the right renal collecting system. * Urothelial thickening is seen within the renal pelvis bilaterally, perinephric stranding is asymmetrically greater on the right. * Small right and trace left pleural effusions, cardiomegaly and hiatal hernia. Small volume pelvic ascites. Of note, a Iniguez catheter was placed in the ED. PATIENT MEETS SEPSIS CRITERIA GIVEN FINDINGS ABOVE. She was administered the following in the ED: IV Zosyn 4.5g and 2.5L IV NSS. Urology [Dr. Dior] was consulted by ED provider (Teofilo Lewis PA-C) following discovery of CTAB findings above. Her SBP consistently remained low in the 60-80s in the ED, thus prompting administration of Levophed per Dr. Dior's orders. Patient was quickly taken to the OR for cystoscopy and R ureteral stent placement. * She will require ICU placement following the procedure given administration of a pressor agent/current level of care requirements. -Continuous cardiac monitoring --> Afib w/ RVR in ED. -RVP, Lyme disease screening negative. -Ordered additional IVF, IV Zosyn to begin upon transfer. -UA/urine culture pending, uncollected as of now but orders are in place. -Nephrology consult ordered, appreciate their recommendation(s)/input. -Measure I&O's, Iniguez catheter in place as per above. Blood culture received, results pending. -Repeat CMP, troponin and CBC (no diff) in AM --> Monitor LFTs given recent bump. Any additional AM labs per ICU. (9) Fall: (10) Dehydration symptoms: (11) Persistent atrial fibrillation: Plan: Has been back on Eliquis (12) Chronic anticoagulation: Plan: Per my interpretation, EKG performed in the ED revealed the following: afib w/ RVR, HR 106bpm, QRS Dur 96ms and QT/QTc 358/475ms. When compared to EKG done 01/07/2017: afib has replaced sinus rhythm, nonspecific T wave abnormality now evident in anterior leads and QT has lengthened. [facility]. Per [employer] documentation, it appears that she is scheduled to have a Watchman device placed in June (06/23/24) with Dr. Lea Carroll @ [facility] [place]. -Continuous cardiac monitoring as per above, HOLD Eliquis and aspirin for now --> Plt count on admission = 83. (13) Hyperlipidemia: Plan: -Will HOLD statin therapy for now given current evidence of acute renal failure/NATALIO. (14) Prediabetes: Plan: Most recent Hgb A1C 5.9, completed 02/20/24. -Diet-controlled, no need to repeat Hgb A1C at this time given findings above. (15) Depression: Plan: -Can continue [employer]STRUCTION[employer] Zoloft while hospitalized. (16) Urinary incontinence: Plan: -Can continue INSTRUCTION[employer]CH[employer]CTOR trospium chloride therapy while hospitalized. -Iniguez catheter in place as above, continue to closely monitor I&O's throughout hospitalization. (17) Hypertension: Plan: -Will HOLD metoprolol succinate for now --> Most recently recorded BP 73/52, SBP appears to be holding ~80s in the ED. -Can reassess need throughout hospitalization, coordinate restarting BB therapy as appropriate. DVT Prophylaxis: Has been back on Eliquis Code Status: Full Code PCP: Arlyn Vallecillo DO Dispo: Admit to ICU --> PATIENT WILL BE PLACED IN ICU FOLLOWING UROLOGICAL PROCEDURE W/ DR. DIOR. * Coordinate care w/ ICU to determine when patient will be stable enough to transition to PCU level of care. Admission and Anticipated Discharge Date Admission Date: April 12, 2024 Subjective 04/13/2024 The patient was seen and examined in ICU She has been feeling much better today Remain generally weak and lethargic Still remains on pressors and trying to wean off it No fever and no chills 04/14/2024 The patient was seen and examined in ICU She has been feeling much better but the blood pressure remains on the lower side after taking of Levophed Denies any symptoms at bed Has been diuresing reasonably and kidney function is improving Wants some salt in diet Review of Systems Review of Systems: All systems reviewed and are unremarkable except as noted below Physical Exam Physical Exam: Lying in bed comfortably Constitutional: well developed, well nourished and + ill appearing Eyes: PERRL, conjunctivae normal, anicteric sclerae ENMT: external ear and nose normal, oropharynx normal Neck: trachea midline, no thyromegaly Respiratory: no respiratory distress Auscultation: + diminished lung sounds and + crackles (Minimal bibasilar crackles) Cardiovascular: Rate/Rhythm: regular rate, regular rhythm and + tachycardic Heart Sounds: normal S1 and normal S2; no murmur Extremities: no edema Gastrointestinal (Abdomen): Inspection/Auscultation: normal bowel sounds; abdomen not distended Percussion/Palpation: abdomen soft; abdomen nontender Musculoskeletal: No acute arthritis involving any of the joint Neurologic: normal touch/pain/proprioception and moves all extremities; no focal motor deficits Lymphatic: no cervical or axillary lymphadenopathy Results & Data Results & Data Vital Signs (Past 12 Hours) Vital Signs Temp Pulse Resp BP Pulse Ox O2 Del Method O2 Flow Rate 04/14/24 11:30 83 23 04/14/24 11:15 88 26 H 04/14/24 10:39 85 23 04/14/24 10:03 74 27 H 04/14/24 09:32 68/46 L 04/14/24 09:30 82 32 H 04/14/24 09:01 111/63 04/14/24 09:00 83 35 H 04/14/24 08:45 90 30 H 04/14/24 08:31 99/59 L 04/14/24 08:11 93 H 31 H 04/14/24 08:02 96 H 24 99 Nasal Cannula 2 04/14/24 08:00 Room Air 04/14/24 07:35 81 20 91 04/14/24 07:11 78 25 H 98 04/14/24 07:00 118/76 04/14/24 05:00 76 21 95 04/14/24 04:51 90 27 H 99 04/14/24 04:45 115 H 28 H 97 04/14/24 04:30 87 21 99 04/14/24 04:30 140/93 04/14/24 04:21 93 H 23 93 04/14/24 04:12 88 21 95 04/14/24 04:06 82 22 96 04/14/24 03:57 85 20 96 04/14/24 03:45 85 21 96 04/14/24 03:30 36.6 C 04/14/24 03:21 88 21 96 04/14/24 03:18 89 21 97 04/14/24 03:09 96 H 31 H 94 04/14/24 02:51 80 22 95 04/14/24 02:42 93 H 22 95 04/14/24 02:21 89 23 94 04/14/24 02:15 87 23 95 04/14/24 02:00 125/76 04/14/24 02:00 88 25 H 96 04/14/24 01:51 90 21 96 04/14/24 01:36 95 H 23 96 04/14/24 01:15 86 24 96 04/14/24 00:51 90 23 95 Laboratory Results Short CBC 04/14/24 Range/Units 05:06 WBC 7.41 (4.8-10.8) K/ul Hgb 10.6 L (12.0-16.0) g/dl Hct 32.4 L (37.0-47.0) % Plt Count 88 L (130-400) K/uL BMP 04/14/24 05:06 Sodium 137 Potassium 3.6 Chloride 104 Carbon Dioxide 23 BUN 49 H Creatinine 2.24 H D Glucose 120 H Calcium 7.3 L Cardiac Enzymes 04/14/24 Range/Units 05:06 Total Creatine Kinase 688 H (26-192) U/L Liver Function 04/14/24 Range/Units 05:06 Total Bilirubin 1.0 (0.2-1.0) mg/dl AST 96 H (13-39) U/L ALT 52 (7-52) U/L Alkaline Phosphatase 75 (34-104) U/L Albumin 2.7 L (3.4-5.0) gm/dl Medications Administered Current Inpatient Medications Acetaminophen (Acetaminophen 325 Mg Tab) 650 mg PO Q4H PRN PRN Reason: pain/fever Stop: 05/12/24 15:52 Last Admin: 04/14/24 11:09 Dose: 650 mg Apixaban (Apixaban 5 Mg Tablet) 5 mg PO BID [facility] Stop: 05/13/24 10:14 Last Admin: 04/14/24 08:02 Dose: 5 mg Norepinephrine Bitartrate (Levophed/D5w) 4 mg in 250 mls @ 0 mls/hr IV .Q0M [facility]; Protocol Stop: 05/12/24 13:14 Last Titration: 04/14/24 05:00 Dose: 0 mcg/kg/min, 0 mls/hr Parenteral Electrolytes (Plasma-Lyte A Ph 7.4) 1,000 mls @ 50 mls/hr IV .Q20H [facility] Stop: 05/12/24 20:14 Last Infusion: 04/14/24 10:14 Dose: 50 mls/hr Ceftriaxone Sodium (Rocephin) 2,000 mg in 50 mls @ 100 mls/hr IV Q24H [facility] Stop: 04/28/24 15:59 Ondansetron HCl (Ondansetron Inj 2 Mg/Ml 2 Ml Vial) 4 mg IV Q6H PRN PRN Reason: Nausea Stop: 05/12/24 15:52 Oxybutynin Chloride (Oxybutynin Chloride Xl 5 Mg Tabcr) 5 mg PO QAM [facility]; Protocol Stop: 05/13/24 08:59 Last Admin: 04/14/24 08:02 Dose: 5 mg Polyethylene Glycol (Polyethylene (Miralax) 17 Gm Pack) 17 gm PO DAILY PRN PRN Reason: Constipation Stop: 05/12/24 15:52 Sertraline HCl (Sertraline Hcl 50 Mg Tablet) 150 mg PO QAM [facility] Stop: 05/13/24 08:59 Last Admin: 04/14/24 08:02 Dose: 150 mg (13) Hyperlipidemia Hyperlipidemia type: unspecified Qualified Code(s): E78.5 - Hyperlipidemia, unspecified (15) Depression Depression Type: unspecified Qualified Code(s): F32.A - Depression, unspecified (16) Urinary incontinence Urinary Incontinence type: unspecified incontinence Qualified Code(s): R32 - Unspecified urinary incontinence (17) Hypertension Hypertension type: unspecified Qualified Code(s): I10 - Essential (primary) hypertension
[2024-04-14] MEDS: cefTRIAXone SODIUM 2,000 MG/50 ML BAG IV SCH (16:19)
[2024-04-14] MEDS: COUGH DROP (SUGAR FREE) LOZ 24 LOZ/1 BOX BUCCAL STA (22:35)
--- NOTE | 2024-04-15 06:20 | Electrocardiogram Report ---
Test Reason : Blood Pressure : / mmHG Vent. Rate : 106 BPM Atrial Rate : 000 BPM P-R Int : 000 ms QRS Dur : 096 ms QT Int : 358 ms P-R-T Axes : 000 -02 000 degrees QTc Int : 475 ms Atrial fibrillation with rapid ventricular response Low voltage QRS Nonspecific T wave abnormality Abnormal ECG When compared with ECG of 07-JAN-2017 09:16, Atrial fibrillation has replaced Sinus rhythm Nonspecific T wave abnormality now evident in Anterior leads Confirmed by Sven Vasquez [id number]) on 04/15/2024 6:20:41 AM Referred By: Confirmed By:Sven Vasquez
[2024-04-15 07:12] LABS: BUN Creatinine Ratio 23.1 (10-20); Calcium 7.5 mg/dl (8.6-10.3); Creatinine Clr Calc Pharmacy 31.5 ml/min; Est GFR (African American) 29.7 ml/min; Est GFR (Non-African American) 25.6 ml/min; Phosphorus 2.8 mg/dl (2.5-4.9); Potassium 3.2 mmol/L (3.5-5.1)
[2024-04-15] MEDS: CHOLECALCIFEROL 25 MCG (1000 UNITS) TAB PO SCH (08:27)
[2024-04-15] MEDS: CALCIUM CARBONATE 1250MG TAB PO SCH (08:27)
[2024-04-15] MEDS: MULTIVITAMIN TAB PO SCH (08:27)
--- NOTE | 2024-04-15 15:14 | Hospitalist Progress Note ---
Date of Service April 15, 2024 Assessment & Plan (1) Septic shock: Plan: Iram Valentino is a 78y/o F with PMHx of prediabetes, paraesophageal hiatal hernia, persistent afib [on Eliquis], urinary incontinence, recurrent UTI and other problems listed below who presented to the ED via EMS for medical evaluation s/p fall this morning + nausea/diarrhea x 4 days and was found to have a 15mm obstructing stone at the R ureteropelvic junction causing moderate R hydronephrosis and emphysematous pyelonephritis. Patient does note an extensive history of recurrent UTIs. Patient notes she has had ~3 UTIs this year. She also has a hx of kidney stones, per my discussion w/ the patient. * Per [facility] documentation, most recent urine culture grew the following: E. coli and Aerococcus urinae --> Completed 03/25/2024. Secondary to hydronephrosis with obstructive calculus Status post cystoscopy, right ureteral stent placement on 04/12/2024 Appreciate urology input and recommendation E. coli septic shock-has been on intravenous Zosyn Gram-negative bacilli bacteremia further identification and sensitivities are pending Requiring pressor agents to maintain blood pressure Appreciate it senior analyst input and recommendation Off Levophed for the last few hours but the blood pressure seems to be going down Clinically much better today-Will change diet to AHA Has been making out a reasonable amount of urine and the kidney function has been improved Clinically much improved and remains hemodynamically stable Diet has been advanced and she will have PT and OT evaluation (2) Hydronephrosis with obstructing calculus: Plan: Status post cystoscopy and right ureteric stent placement (3) Acute kidney failure: Plan: Baseline creatinine of 1 in 2023 Seems to have ischemic ATN with septic shock and creatinine went up to 3.0 Appreciate nephrology input and recommendation Has been getting intravenous fluid Not having enough urine output Will avoid any NSAIDs or other nephrotoxins No indication for emergent dialysis yet BUN and creatinine are better today Will continue with the current management Kidney functions keep improving-advised to drink more fluid (4) Elevated troponin: Plan: Initial troponin on admission was 748 and that went up to 2293 and since then has been improving Likely secondary to stress-induced and shock with ATN EKG showed atrial fibrillation without any acute ST-T wave changes Echo of the heart showed-atrial fibrillation with ventricular rate in the range of 100 208, mild concentric LVH, LV wall motion is normal, LV systolic function is normal with EF 55 to 60%, aortic valve sclerosis mild without significant stenosis, pulmonary artery systolic pressure estimated to be 40 mmHg Doubt any ACS Mild rhabdomyolysis CK was 805 Contributed by NATALIO Rhabdomyolysis is improved (5) Emphysematous pyelonephritis: Plan: As above No shortness of breath at rest (6) Metabolic acidosis: Plan: No leukocytosis. Initial lactate 8.1, repeat lactate ~2 hours later --> 6.2 [ downtrending]. Evidence of metabolic acidosis with anion gap 17. Total bili 1.4, AST 69, and Alk Phos 124. Gap seems to be closed Will monitor lactic acid-normalized (7) Gastroenteritis: Plan: As per above: * Head CT displayed no acute injury or cranial abnormality. * Face CT showed no acute facial bone fracture. However, there is nonspecific left supraclavicular lymphadenopathy noted. * Cervical spine CT revealed no evidence of fracture or subluxation involving the cervical spine; osteopenia and spondylitic changes noted. -Stool culture NEGATIVE. Will continue aggressive IVF, IV Zosyn ordered. -PRN IV Zofran in place, monitor I&O's [as per above, Iniguez catheter in place]. (8) NATALIO (acute kidney injury): Plan: Notes from admitting physician: Total CK 805. Initial troponin 748.3, repeat troponin ~2 hours later --> 759.8 [ trending upwards]. Evidence of NATALIO with creatinine 2.98. BUN 39, GFR 14.5 --> Appears to be in ACUTE KIDNEY FAILURE. Chest x-ray revealed no acute process. Head CT displayed no acute injury or cranial abnormality. Face CT showed no acute facial bone fracture. However, there is nonspecific left supraclavicular lymphadenopathy noted. Cervical spine CT revealed no evidence of fracture or subluxation involving the cervical spine; osteopenia and spondylitic changes noted. As previously eluded to, CTAB revealed the following: * 15 mm obstructing calculus at the right ureteropelvic junction, causing moderate right hydronephrosis. * Additional bilateral renal calculi per imaging report. Bladder appears thick- walled and contains intraluminal gas. There is also gas within the right renal collecting system. * Urothelial thickening is seen within the renal pelvis bilaterally, perinephric stranding is asymmetrically greater on the right. * Small right and trace left pleural effusions, cardiomegaly and hiatal hernia. Small volume pelvic ascites. Of note, a Iniguez catheter was placed in the ED. PATIENT MEETS SEPSIS CRITERIA GIVEN FINDINGS ABOVE. She was administered the following in the ED: IV Zosyn 4.5g and 2.5L IV NSS. Urology [Dr. Dior] was consulted by ED provider (Teofilo Lewis PA-C) following discovery of CTAB findings above. Her SBP consistently remained low in the 60-80s in the ED, thus prompting administration of Levophed per Dr. Dior's orders. Patient was quickly taken to the OR for cystoscopy and R ureteral stent placement. * She will require ICU placement following the procedure given administration of a pressor agent/current level of care requirements. -Continuous cardiac monitoring --> Afib w/ RVR in ED. -RVP, Lyme disease screening negative. -Ordered additional IVF, IV Zosyn to begin upon transfer. -UA/urine culture pending, uncollected as of now but orders are in place. -Nephrology consult ordered, appreciate their recommendation(s)/input. -Measure I&O's, Iniguez catheter in place as per above. Blood culture received, results pending. -Repeat CMP, troponin and CBC (no diff) in AM --> Monitor LFTs given recent bump. Any additional AM labs per ICU. (9) Fall: (10) Dehydration symptoms: (11) Persistent atrial fibrillation: Plan: Has been back on Eliquis (12) Chronic anticoagulation: Plan: Per my interpretation, EKG performed in the ED revealed the following: afib w/ RVR, HR 106bpm, QRS Dur 96ms and QT/QTc 358/475ms. When compared to EKG done 01/07/2017: afib has replaced sinus rhythm, nonspecific T wave abnormality now evident in anterior leads and QT has lengthened. Patient does follow with [facility]. Per [facility] documentation, it appears that she is scheduled to have a Watchman device placed in June (06/23/24) with [place] [facility] [place] -Continuous cardiac monitoring as per above, HOLD Eliquis and aspirin for now --> Plt count on admission = 83. (13) Hyperlipidemia: Plan: -Will HOLD statin therapy for now given current evidence of acute renal failure/NATALIO. (14) Prediabetes: Plan: Most recent Hgb A1C 5.9, completed 02/20/24. -Diet-controlled, no need to repeat Hgb A1C at this time given findings above. (15) Depression: Plan: -Can continue [employer] Zoloft while hospitalized. (16) Urinary incontinence: Plan: -Can continue [employer] trospium chloride therapy while hospitalized. -Iniguez catheter in place as above, continue to closely monitor I&O's throughout hospitalization. (17) Hypertension: Plan: -Will HOLD metoprolol succinate for now --> Most recently recorded BP 73/52, SBP appears to be holding ~80s in the ED. -Can reassess need throughout hospitalization, coordinate restarting BB therapy as appropriate. DVT Prophylaxis: Has been back on Eliquis Code Status: Full Code PCP: Arlyn Vallecilol DO Dispo: Admit to ICU --> PATIENT WILL BE PLACED IN ICU FOLLOWING UROLOGICAL PROCEDURE W/ DR. DIOR. * Coordinate care w/ ICU to determine when patient will be stable enough to transition to PCU level of care. Admission and Anticipated Discharge Date Admission Date: April 12, 2024 Subjective 04/13/2024 The patient was seen and examined in ICU She has been feeling much better today Remain generally weak and lethargic Still remains on pressors and trying to wean off it No fever and no chills 04/14/2024 The patient was seen and examined in ICU She has been feeling much better but the blood pressure remains on the lower side after taking of Levophed Denies any symptoms at bed Has been diuresing reasonably and kidney function is improving Wants some salt in diet 04/15/2024 The patient was seen and examined in telemetry unit She has been feeling much better today Weakness has improved and denies any other significant symptoms Will get PT and OT involved Review of Systems Review of Systems: All systems reviewed and are unremarkable except as noted below Physical Exam Physical Exam: Lying in bed comfortably Constitutional: well developed, well nourished and + ill appearing Eyes: PERRL, conjunctivae normal, anicteric sclerae ENMT: external ear and nose normal, oropharynx normal Neck: trachea midline, no thyromegaly Respiratory: no respiratory distress Auscultation: + diminished lung sounds and + crackles (Minimal bibasilar crackles) Cardiovascular: Rate/Rhythm: regular rate, regular rhythm and + tachycardic Heart Sounds: normal S1 and normal S2; no murmur Extremities: no edema Gastrointestinal (Abdomen): Inspection/Auscultation: normal bowel sounds; abdomen not distended Percussion/Palpation: abdomen soft; abdomen nontender Musculoskeletal: No acute arthritis involving any of the joint Neurologic: normal touch/pain/proprioception and moves all extremities; no focal motor deficits Lymphatic: no cervical or axillary lymphadenopathy Results & Data Results & Data Vital Signs (Past 12 Hours) Vital Signs Temp Pulse Pulse Resp BP Pulse Ox O2 Del Method 04/15/24 11:19 36.6 C 91 H 18 117/75 92 Room Air 04/15/24 07:46 Room Air 04/15/24 07:46 89 04/15/24 07:43 36.5 C 90 18 116/73 93 Room Air 04/15/24 03:17 37.6 C H 91 H 18 107/70 90 Room Air Laboratory Results [facility] 04/15/24 06:21 Sodium 137 Potassium 3.2 L Chloride 106 Carbon Dioxide 23 BUN 43 H Creatinine 1.86 H D Glucose 100 H Calcium 7.5 L Medications Administered Current Inpatient Medications Acetaminophen (Acetaminophen 325 Mg Tab) 650 mg PO Q4H PRN PRN Reason: pain/fever Stop: 05/12/24 15:52 Last Admin: 04/14/24 22:35 Dose: 650 mg Apixaban (Apixaban 5 Mg Tablet) 5 mg PO BID [facility] Stop: 05/13/24 10:14 Last Admin: 04/15/24 08:26 Dose: 5 mg Calcium Carbonate (Calcium Carbonate 1250mg Tab) 1 tab PO DAILY [facility] Stop: 05/15/24 08:59 Last Admin: 04/15/24 08:27 Dose: 1 tab Norepinephrine Bitartrate (Levophed/D5w) 4 mg in 250 mls @ 0 mls/hr IV .Q0M [facility]; Protocol Stop: 05/12/24 13:14 Last Titration: 04/14/24 16:16 Dose: Infused Parenteral Electrolytes (Plasma-Lyte A Ph 7.4) 1,000 mls @ 50 mls/hr IV .Q20H [facility] Stop: 05/12/24 20:14 Last Admin: 04/15/24 12:54 Dose: 50 mls/hr Ceftriaxone Sodium (Rocephin) 2,000 mg in 50 mls @ 100 mls/hr IV Q24H [facility] Stop: 04/28/24 15:59 Last Infusion: 04/14/24 17:24 Dose: Infused Multivitamins (Multivitamin Tab) 1 tab PO DAILY [facility] Stop: 05/15/24 08:59 Last Admin: 04/15/24 08:27 Dose: 1 tab Ondansetron HCl (Ondansetron Inj 2 Mg/Ml 2 Ml Vial) 4 mg IV Q6H PRN PRN Reason: Nausea Stop: 05/12/24 15:52 Oxybutynin Chloride (Oxybutynin Chloride Xl 5 Mg Tabcr) 5 mg PO QAM [facility]; Protocol Stop: 05/13/24 08:59 Last Admin: 04/15/24 08:26 Dose: 5 mg Polyethylene Glycol (Polyethylene (Miralax) 17 Gm Pack) 17 gm PO DAILY PRN PRN Reason: Constipation Stop: 05/12/24 15:52 Sertraline HCl (Sertraline Hcl 50 Mg Tablet) 150 mg PO QAM [facility] Stop: 05/13/24 08:59 Last Admin: 04/15/24 08:27 Dose: 150 mg Vitamin D (Cholecalciferol 25 Mcg (1000 Units) Tab) 25 mcg PO DAILY [facility] Stop: 05/15/24 08:59 Last Admin: 04/15/24 08:27 Dose: 25 mcg (13) Hyperlipidemia Hyperlipidemia type: unspecified Qualified Code(s): E78.5 - Hyperlipidemia, unspecified (15) Depression Depression Type: unspecified Qualified Code(s): F32.A - Depression, unspecified (16) Urinary incontinence Urinary Incontinence type: unspecified incontinence Qualified Code(s): R32 - Unspecified urinary incontinence (17) Hypertension Hypertension type: unspecified Qualified Code(s): I10 - Essential (primary) hypertension
[2024-04-15 18:43] LABS: Babesia microti DNA Not Detected (Not Detected)
[2024-04-16 06:27] LABS: BUN Creatinine Ratio 24.8 (10-20); Calcium 8.1 mg/dl (8.6-10.3); Creatinine Clr Calc Pharmacy 40.4 ml/min; Est GFR (African American) 40.2 ml/min; Est GFR (Non-African American) 34.6 ml/min; Potassium 3.4 mmol/L (3.5-5.1)
[2024-04-16 06:36] LABS: Basophils # (auto) 0.02 K/uL (0.00-0.20); Basophils % (auto) 0.2 %; Eosinophils # (auto) 0.29 K/uL (0.00-0.50); Eosinophils % (auto) 3.6 %; Hematocrit (blood only) 31.9 % (37.0-47.0); Hemoglobin 10.5 g/dl (12.0-16.0); Immature Granulocytes # (auto) 0.08 K/uL (0.01-0.20); Lymphocytes # (auto) 0.85 K/uL (1.20-3.40); Lymphocytes % (auto) 10.5 %; Mean Corpuscular Hemoglobin 27.6 pg (25.0-34.0); Mean Corpuscular Hgb Conc 32.9 g/dL (32.0-36.0); Mean Corpuscular Volume 83.7 fL (80.0-100.0); Mean Platelet Volume 13.8 fL (9.4-12.4); Monocytes # (auto) 1.32 K/uL (0.11-0.59); Monocytes % (auto) 16.4 %; Neutrophils % (auto) 68.3 %; Platelet Count 92 K/uL (130-400); Polychromasia 1+; RDW Coefficient of Variation 15.4 % (11.5-14.5); RDW Standard Deviation 46.9 fL (36.4-46.3); Red Blood Count 3.81 M/uL (4.20-5.40); White Blood Count 8.06 K/ul (4.8-10.8)
[2024-04-16] MEDS: POTASSIUM CHLORIDE CRTAB 20 MEQ TABCR PO STA (08:21)
--- NOTE | 2024-04-16 13:05 | Hospitalist Progress Note ---
Date of Service April 16, 2024 Assessment & Plan (1) Septic shock: Plan: Iram Valentino is a 78y/o F with PMHx of prediabetes, paraesophageal hiatal hernia, persistent afib [on Eliquis], urinary incontinence, recurrent UTI and other problems listed below who presented to the ED via EMS for medical evaluation s/p fall this morning + nausea/diarrhea x 4 days and was found to have a 15mm obstructing stone at the R ureteropelvic junction causing moderate R hydronephrosis and emphysematous pyelonephritis. Patient does note an extensive history of recurrent UTIs. Patient notes she has had ~3 UTIs this year. She also has a hx of kidney stones, per my discussion w/ the patient. * Per [facility] documentation, most recent urine culture grew the following: E. coli and Aerococcus urinae --> Completed 03/25/2024. Secondary to hydronephrosis with obstructive calculus Status post cystoscopy, right ureteral stent placement on 04/12/2024 Appreciate urology input and recommendation E. coli septic shock-has been on intravenous Zosyn Gram-negative bacilli bacteremia further identification and sensitivities are pending-came out to be E. 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 input and recommendation Off Levophed for the last few hours but the blood pressure seems to be going down Clinically much better today-Will change diet to AHA Has been making out a reasonable amount of urine and the kidney function has been improved Clinically much improved and remains hemodynamically stable Diet has been advanced and she will have PT and OT evaluation Clinically much better we will continue total intravenous antibiotic for 14 days (2) Hydronephrosis with obstructing calculus: Plan: Status post cystoscopy and right ureteric stent placement (3) Acute kidney failure: Plan: Baseline creatinine of 1 in 2023 Seems to have ischemic ATN with septic shock and creatinine went up to 3.0 Appreciate nephrology input and recommendation Has been getting intravenous fluid Not having enough urine output Will avoid any NSAIDs or other nephrotoxins No indication for emergent dialysis yet BUN and creatinine are better today Will continue with the current management Kidney functions keep improving-advised to drink more fluid Kidney function is much improved with improvement of creatinine to 1.45 from 2.98 as of 04/16/2024 (4) Elevated troponin: Plan: Initial troponin on admission was 748 and that went up to 2293 and since then has been improving Likely secondary to stress-induced and shock with ATN EKG showed atrial fibrillation without any acute ST-T wave changes Echo of the heart showed-atrial fibrillation with ventricular rate in the range of 100 208, mild concentric LVH, LV wall motion is normal, LV systolic function is normal with EF 55 to 60%, aortic valve sclerosis mild without significant stenosis, pulmonary artery systolic pressure estimated to be 40 mmHg Doubt any ACS Mild rhabdomyolysis CK was 805 Contributed by NATALIO Rhabdomyolysis is improved (5) Emphysematous pyelonephritis: Plan: As above No shortness of breath at rest (6) Metabolic acidosis: Plan: No leukocytosis. Initial lactate 8.1, repeat lactate ~2 hours later --> 6.2 [ downtrending]. Evidence of metabolic acidosis with anion gap 17. Total bili 1.4, AST 69, and Alk Phos 124. Gap seems to be closed Will monitor lactic acid-normalized (7) Gastroenteritis: Plan: As per above: * Head CT displayed no acute injury or cranial abnormality. * Face CT showed no acute facial bone fracture. However, there is nonspecific left supraclavicular lymphadenopathy noted. * Cervical spine CT revealed no evidence of fracture or subluxation involving the cervical spine; osteopenia and spondylitic changes noted. -Stool culture NEGATIVE. Will continue aggressive IVF, IV Zosyn ordered. -PRN IV Zofran in place, monitor I&O's [as per above, Iniguez catheter in place]. (8) NATALIO (acute kidney injury): Plan: Notes from admitting physician: Total CK 805. Initial troponin 748.3, repeat troponin ~2 hours later --> 759.8 [ trending upwards]. Evidence of NATALIO with creatinine 2.98. BUN 39, GFR 14.5 --> Appears to be in ACUTE KIDNEY FAILURE. Chest x-ray revealed no acute process. Head CT displayed no acute injury or cranial abnormality. Face CT showed no acute facial bone fracture. However, there is nonspecific left supraclavicular lymphadenopathy noted. Cervical spine CT revealed no evidence of fracture or subluxation involving the cervical spine; osteopenia and spondylitic changes noted. As previously eluded to, CTAB revealed the following: * 15 mm obstructing calculus at the right ureteropelvic junction, causing moderate right hydronephrosis. * Additional bilateral renal calculi per imaging report. Bladder appears thick- walled and contains intraluminal gas. There is also gas within the right renal collecting system. * Urothelial thickening is seen within the renal pelvis bilaterally, perinephric stranding is asymmetrically greater on the right. * Small right and trace left pleural effusions, cardiomegaly and hiatal hernia. Small volume pelvic ascites. Of note, a Iniguez catheter was placed in the ED. PATIENT MEETS SEPSIS CRITERIA GIVEN FINDINGS ABOVE. She was administered the following in the ED: IV Zosyn 4.5g and 2.5L IV NSS. Urology [Dr. Dior] was consulted by ED provider (Teofilo Lewis PA-C) following discovery of CTAB findings above. Her SBP consistently remained low in the 60-80s in the ED, thus prompting administration of Levophed per Dr. Dior's orders. Patient was quickly taken to the OR for cystoscopy and R ureteral stent placement. * She will require ICU placement following the procedure given administration of a pressor agent/current level of care requirements. -Continuous cardiac monitoring --> Afib w/ RVR in ED. -RVP, Lyme disease screening negative. -Ordered additional IVF, IV Zosyn to begin upon transfer. -UA/urine culture pending, uncollected as of now but orders are in place. -Nephrology consult ordered, appreciate their recommendation(s)/input. -Measure I&O's, Iniguez catheter in place as per above. Blood culture received, results pending. -Repeat CMP, troponin and CBC (no diff) in AM --> Monitor LFTs given recent bump. Any additional AM labs per ICU. (9) Fall: (10) Dehydration symptoms: (11) Persistent atrial fibrillation: Plan: Has been back on Eliquis (12) Chronic anticoagulation: Plan: Per my interpretation, EKG performed in the ED revealed the following: afib w/ RVR, HR 106bpm, QRS Dur 96ms and QT/QTc 358/475ms. When compared to EKG done 01/07/2017: afib has replaced sinus rhythm, nonspecific T wave abnormality now evident in anterior leads and QT has lengthened. Patient does follow with [facility]. Per [employer] documentation, it appears that she is scheduled to have a Watchman device placed in June (06/23/24) with Dr. Lea Carroll [place] [facility] [place] -Continuous cardiac monitoring as per above, HOLD Eliquis and aspirin for now --> Plt count on admission = 83. (13) Hyperlipidemia: Plan: -Will HOLD statin therapy for now given current evidence of acute renal failure/NATALIO. (14) Prediabetes: Plan: Most recent Hgb A1C 5.9, completed 02/20/24. -Diet-controlled, no need to repeat Hgb A1C at this time given findings above. (15) Depression: Plan: -Can continue DIALYSIS PATIENT CARE TECHNICIAN Zoloft while hospitalized. (16) Urinary incontinence: Plan: -Can continue DIALYSIS PATIENT CARE TECHNICIAN trospium chloride therapy while hospitalized. -Iniguez catheter in place as above, continue to closely monitor I&O's throughout hospitalization. (17) Hypertension: Plan: -Will HOLD metoprolol succinate for now --> Most recently recorded BP 73/52, SBP appears to be holding ~80s in the ED. -Can reassess need throughout hospitalization, coordinate restarting BB therapy as appropriate. DVT Prophylaxis: Has been back on Eliquis Code Status: Full Code PCP: Arlyn Vallecillo DO Dispo: Admit to ICU --> PATIENT WILL BE PLACED IN ICU FOLLOWING UROLOGICAL PROCEDURE W/ DR. DIOR. * Coordinate care w/ ICU to determine when patient will be stable enough to transition to PCU level of care. Admission and Anticipated Discharge Date Admission Date: April 12, 2024 Subjective 04/13/2024 The patient was seen and examined in ICU She has been feeling much better today Remain generally weak and lethargic Still remains on pressors and trying to wean off it No fever and no chills 04/14/2024 The patient was seen and examined in ICU She has been feeling much better but the blood pressure remains on the lower side after taking of Levophed Denies any symptoms at bed Has been diuresing reasonably and kidney function is improving Wants some salt in diet 04/15/2024 The patient was seen and examined in telemetry unit She has been feeling much better today Weakness has improved and denies any other significant symptoms Will get PT and OT involved 04/16/2024 The patient was seen and examined in telemetry unit She remains anorexic but otherwise has been feeling lot better Has been getting physical therapy and weakness is improving Kidney function is improving as well Review of Systems Review of Systems: All systems reviewed and are unremarkable except as noted below Physical Exam Physical Exam: Lying in bed comfortably Constitutional: well developed, well nourished and + ill appearing Eyes: PERRL, conjunctivae normal, anicteric sclerae ENMT: external ear and nose normal, oropharynx normal Neck: trachea midline, no thyromegaly Respiratory: no respiratory distress Auscultation: + diminished lung sounds and + crackles (Minimal bibasilar crackles) Cardiovascular: Rate/Rhythm: regular rate, regular rhythm and + tachycardic Heart Sounds: normal S1 and normal S2; no murmur Extremities: no edema Gastrointestinal (Abdomen): Inspection/Auscultation: normal bowel sounds; abdomen not distended Percussion/Palpation: abdomen soft; abdomen nontender Musculoskeletal: No acute arthritis involving any of the joint Neurologic: normal touch/pain/proprioception and moves all extremities; no focal motor deficits Lymphatic: no cervical or axillary lymphadenopathy Results & Data Results & Data Vital Signs (Past 12 Hours) Vital Signs Temp Pulse Pulse Resp BP Pulse Ox O2 Del Method 04/16/24 11:57 36.4 C L 77 18 115/74 92 Room Air 04/16/24 07:28 36.8 C 82 18 118/70 95 Room Air 04/16/24 07:08 Room Air 04/16/24 07:08 77 04/16/24 03:08 37.0 C 89 18 135/84 94 Room Air Laboratory Results Short CBC 04/16/24 Range/Units 05:31 WBC 8.06 (4.8-10.8) K/ul Hgb 10.5 L (12.0-16.0) g/dl Hct 31.9 L (37.0-47.0) % Plt Count 92 L (130-400) K/uL BMP 04/16/24 05:31 Sodium 138 Potassium 3.4 L Chloride 105 Carbon Dioxide 25 BUN 36 H Creatinine 1.45 H D Glucose 100 H Calcium 8.1 L Medications Administered Current Inpatient Medications Acetaminophen (Acetaminophen 325 Mg Tab) 650 mg PO Q4H PRN PRN Reason: pain/fever Stop: 05/12/24 15:52 Last Admin: 04/14/24 22:35 Dose: 650 mg Apixaban (Apixaban 5 Mg Tablet) 5 mg PO BID MARY Stop: 05/13/24 10:14 Last Admin: 04/16/24 08:14 Dose: 5 mg Calcium Carbonate (Calcium Carbonate 1250mg Tab) 1 tab PO DAILY [facility] Stop: 05/15/24 08:59 Last Admin: 04/16/24 08:14 Dose: 1 tab Norepinephrine Bitartrate (Levophed/D5w) 4 mg in 250 mls @ 0 mls/hr IV .Q0M [facility]; Protocol Stop: 05/12/24 13:14 Last Titration: 04/14/24 16:16 Dose: Infused Parenteral Electrolytes (Plasma-Lyte A Ph 7.4) 1,000 mls @ 50 mls/hr IV .Q20H [facility] Stop: 05/12/24 20:14 Last Admin: 04/16/24 08:13 Dose: 50 mls/hr Ceftriaxone Sodium (Rocephin) 2,000 mg in 50 mls @ 100 mls/hr IV Q24H [facility]ARY Stop: 04/28/24 15:59 Last Infusion: 04/15/24 17:04 Dose: Infused Multivitamins (Multivitamin Tab) 1 tab PO DAILY [facility] Stop: 05/15/24 08:59 Last Admin: 04/16/24 08:14 Dose: 1 tab Ondansetron HCl (Ondansetron Inj 2 Mg/Ml 2 Ml Vial) 4 mg IV Q6H PRN PRN Reason: Nausea Stop: 05/12/24 15:52 Oxybutynin Chloride (Oxybutynin Chloride Xl 5 Mg Tabcr) 5 mg PO QAM [facility]; Protocol Stop: 05/13/24 08:59 Last Admin: 04/16/24 08:14 Dose: 5 mg Polyethylene Glycol (Polyethylene (Miralax) 17 Gm Pack) 17 gm PO DAILY PRN PRN Reason: Constipation Stop: 05/12/24 15:52 Sertraline HCl (Sertraline Hcl 50 Mg Tablet) 150 mg PO QAM [facility] Stop: 05/13/24 08:59 Last Admin: 04/16/24 08:14 Dose: 150 mg Vitamin D (Cholecalciferol 25 Mcg (1000 Units) Tab) 25 mcg PO DAILY [facility] Stop: 05/15/24 08:59 Last Admin: 04/16/24 08:14 Dose: 25 mcg (13) Hyperlipidemia Hyperlipidemia type: unspecified Qualified Code(s): E78.5 - Hyperlipidemia, unspecified (15) Depression Depression Type: unspecified Qualified Code(s): F32.A - Depression, unspecified (16) Urinary incontinence Urinary Incontinence type: unspecified incontinence Qualified Code(s): R32 - Unspecified urinary incontinence (17) Hypertension Hypertension type: unspecified Qualified Code(s): I10 - Essential (primary) hypertension
[2024-04-17 08:34] LABS: Calcium 8.4 mg/dl (8.6-10.3); Potassium 3.5 mmol/L (3.5-5.1)
[2024-04-17 08:40] LABS: BUN Creatinine Ratio 23.9 (10-20); Creatinine Clr Calc Pharmacy 50.3 ml/min; Est GFR (African American) 52.1 ml/min; Est GFR (Non-African American) 44.9 ml/min
--- NOTE | 2024-04-17 12:01 | Hospitalist Progress Note ---
Date of Service April 17, 2024 Assessment & Plan (1) Septic shock: Plan: Iram Valentino is a 78y/o F with PMHx of prediabetes, paraesophageal hiatal hernia, persistent afib [on Eliquis], urinary incontinence, recurrent UTI and other problems listed below who presented to the ED via EMS for medical evaluation s/p fall this morning + nausea/diarrhea x 4 days and was found to have a 15mm obstructing stone at the R ureteropelvic junction causing moderate R hydronephrosis and emphysematous pyelonephritis. Patient does note an extensive history of recurrent UTIs. Patient notes she has had ~3 UTIs this year. She also has a hx of kidney stones, per my discussion w/ the patient. * Per [facility] documentation, most recent urine culture grew the following: E. coli and Aerococcus urinae --> Completed 03/25/2024. Secondary to hydronephrosis with obstructive calculus Status post cystoscopy, right ureteral stent placement on 04/12/2024 Appreciate urology input and recommendation E. coli septic shock-has been on intravenous Zosyn Gram-negative bacilli bacteremia further identification and sensitivities are pending-came out to be E. 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 waxer operator input and recommendation Off Levophed for the last few hours but the blood pressure seems to be going down Clinically much better today-Will change diet to AHA Has been making out a reasonable amount of urine and the kidney function has been improved Clinically much improved and remains hemodynamically stable Diet has been advanced and she will have PT and OT evaluation Clinically much better we will continue total intravenous antibiotic for 14 days No signs and or symptoms of ongoing infection (2) Hydronephrosis with obstructing calculus: Plan: Status post cystoscopy and right ureteric stent placement (3) Acute kidney failure: Plan: Baseline creatinine of 1 in 2023 Seems to have ischemic ATN with septic shock and creatinine went up to 3.0 Appreciate nephrology input and recommendation Has been getting intravenous fluid Not having enough urine output Will avoid any NSAIDs or other nephrotoxins No indication for emergent dialysis yet BUN and creatinine are better today Will continue with the current management Kidney functions keep improving-advised to drink more fluid Kidney function is much improved with improvement of creatinine to 1.45 from 2.98 as of 04/16/2024 Kidney function is even better with creatinine running almost normal IV fluid will be discontinued Advised to drink more fluid (4) Elevated troponin: Plan: Initial troponin on admission was 748 and that went up to 2293 and since then has been improving Likely secondary to stress-induced and shock with ATN EKG showed atrial fibrillation without any acute ST-T wave changes Echo of the heart showed-atrial fibrillation with ventricular rate in the range of 100 208, mild concentric LVH, LV wall motion is normal, LV systolic function is normal with EF 55 to 60%, aortic valve sclerosis mild without significant stenosis, pulmonary artery systolic pressure estimated to be 40 mmHg Doubt any ACS Denies any cardiac symptoms Mild rhabdomyolysis CK was 805 Contributed by NATALIO Rhabdomyolysis is improved (5) Emphysematous pyelonephritis: Plan: As above No shortness of breath at rest (6) Metabolic acidosis: Plan: No leukocytosis. Initial lactate 8.1, repeat lactate ~2 hours later --> 6.2 [ downtrending]. Evidence of metabolic acidosis with anion gap 17. Total bili 1.4, AST 69, and Alk Phos 124. Gap seems to be closed Will monitor lactic acid-normalized (7) Gastroenteritis: Plan: As per above: * Head CT displayed no acute injury or cranial abnormality. * Face CT showed no acute facial bone fracture. However, there is nonspecific left supraclavicular lymphadenopathy noted. * Cervical spine CT revealed no evidence of fracture or subluxation involving the cervical spine; osteopenia and spondylitic changes noted. -Stool culture NEGATIVE. Will continue aggressive IVF, IV Zosyn ordered. -PRN IV Zofran in place, monitor I&O's [as per above, Iniguez catheter in place]. (8) NATALIO (acute kidney injury): Plan: Notes from admitting physician: Total CK 805. Initial troponin 748.3, repeat troponin ~2 hours later --> 759.8 [ trending upwards]. Evidence of NATALIO with creatinine 2.98. BUN 39, GFR 14.5 --> Appears to be in ACUTE KIDNEY FAILURE. Chest x-ray revealed no acute process. Head CT displayed no acute injury or cranial abnormality. Face CT showed no acute facial bone fracture. However, there is nonspecific left supraclavicular lymphadenopathy noted. Cervical spine CT revealed no evidence of fracture or subluxation involving the cervical spine; osteopenia and spondylitic changes noted. As previously eluded to, CTAB revealed the following: * 15 mm obstructing calculus at the right ureteropelvic junction, causing moderate right hydronephrosis. * Additional bilateral renal calculi per imaging report. Bladder appears thick- walled and contains intraluminal gas. There is also gas within the right renal collecting system. * Urothelial thickening is seen within the renal pelvis bilaterally, perinephric stranding is asymmetrically greater on the right. * Small right and trace left pleural effusions, cardiomegaly and hiatal hernia. Small volume pelvic ascites. Of note, a Iniguez catheter was placed in the ED. PATIENT MEETS SEPSIS CRITERIA GIVEN FINDINGS ABOVE. She was administered the following in the ED: IV Zosyn 4.5g and 2.5L IV NSS. Urology [Dr. Dior] was consulted by ED provider (Teofilo Lewis PA-C) following discovery of CTAB findings above. Her SBP consistently remained low in the 60-80s in the ED, thus prompting administration of Levophed per Dr. Dior's orders. Patient was quickly taken to the OR for cystoscopy and R ureteral stent placement. * She will require ICU placement following the procedure given administration of a pressor agent/current level of care requirements. -Continuous cardiac monitoring --> Afib w/ RVR in ED. -RVP, Lyme disease screening negative. -Ordered additional IVF, IV Zosyn to begin upon transfer. -UA/urine culture pending, uncollected as of now but orders are in place. -Nephrology consult ordered, appreciate their recommendation(s)/input. -Measure I&O's, Iniguez catheter in place as per above. Blood culture received, results pending. -Repeat CMP, troponin and CBC (no diff) in AM --> Monitor LFTs given recent bump. Any additional AM labs per ICU. (9) Fall: (10) Dehydration symptoms: (11) Persistent atrial fibrillation: Plan: Has been back on Eliquis (12) Chronic anticoagulation: Plan: Per my interpretation, EKG performed in the ED revealed the following: afib w/ RVR, HR 106bpm, QRS Dur 96ms and QT/QTc 358/475ms. When compared to EKG done 01/07/2017: afib has replaced sinus rhythm, nonspecific T wave abnormality now evident in anterior leads and QT has lengthened. [facility]. Per Epic documentation, it appears that she is scheduled to have a Watchman device placed in June (06/23/24) with Dr. Lea Carroll @ [facility] [place]. -Continuous cardiac monitoring as per above, HOLD Eliquis and aspirin for now --> Plt count on admission = 83. (13) Hyperlipidemia: Plan: -Will HOLD statin therapy for now given current evidence of acute renal failure/NATALIO. (14) Prediabetes: Plan: Most recent Hgb A1C 5.9, completed 02/20/24. -Diet-controlled, no need to repeat Hgb A1C at this time given findings above. (15) Depression: Plan: -Can continue AIR BAG BUFFER Zoloft while hospitalized. (16) Urinary incontinence: Plan: -Can continue AIR BAG BUFFER trospium chloride therapy while hospitalized. -Iniguez catheter in place as above, continue to closely monitor I&O's throughout hospitalization. (17) Hypertension: Plan: -Will HOLD metoprolol succinate for now --> Most recently recorded BP 73/52, SBP appears to be holding ~80s in the ED. -Can reassess need throughout hospitalization, coordinate restarting BB therapy as appropriate. DVT Prophylaxis: Has been back on Eliquis Code Status: Full Code PCP: Arlyn Vallecillo DO Dispo: Admit to ICU --> PATIENT WILL BE PLACED IN ICU FOLLOWING UROLOGICAL PROCEDURE W/ DR. DIOR. * Coordinate care w/ ICU to determine when patient will be stable enough to transition to PCU level of care. Admission and Anticipated Discharge Date Admission Date: April 12, 2024 Subjective 04/13/2024 The patient was seen and examined in ICU She has been feeling much better today Remain generally weak and lethargic Still remains on pressors and trying to wean off it No fever and no chills 04/14/2024 The patient was seen and examined in ICU She has been feeling much better but the blood pressure remains on the lower side after taking of Levophed Denies any symptoms at bed Has been diuresing reasonably and kidney function is improving Wants some salt in diet 04/15/2024 The patient was seen and examined in telemetry unit She has been feeling much better today Weakness has improved and denies any other significant symptoms Will get PT and OT involved 04/16/2024 The patient was seen and examined in telemetry unit She remains anorexic but otherwise has been feeling lot better Has been getting physical therapy and weakness is improving Kidney function is improving as well 04/17/2024 The patient was seen and examined in telemetry unit She has been feeling much better though remain generally weak Feels that she is not yet ready to be discharged She will get physical therapy and will probably need placement Review of Systems Review of Systems: All systems reviewed and are unremarkable except as noted below Physical Exam Physical Exam: Lying in bed comfortably Constitutional: well developed, well nourished and + ill appearing Eyes: PERRL, conjunctivae normal, anicteric sclerae ENMT: external ear and nose normal, oropharynx normal Neck: trachea midline, no thyromegaly Respiratory: no respiratory distress Auscultation: + diminished lung sounds and + crackles (Minimal bibasilar crackles) Cardiovascular: Rate/Rhythm: regular rate, regular rhythm and + tachycardic Heart Sounds: normal S1 and normal S2; no murmur Extremities: no edema Gastrointestinal (Abdomen): Inspection/Auscultation: normal bowel sounds; abdomen not distended Percussion/Palpation: abdomen soft; abdomen nontender Musculoskeletal: No acute arthritis involving any of the joints Neurologic: normal touch/pain/proprioception and moves all extremities; no focal motor deficits Lymphatic: no cervical or axillary lymphadenopathy Results & Data Results & Data Vital Signs (Past 12 Hours) Vital Signs Temp Pulse Pulse Resp BP Pulse Ox O2 Del Method 04/17/24 11:07 36.6 C 68 18 114/75 95 Room Air 04/17/24 07:53 78 04/17/24 07:19 36.3 C L 74 18 114/74 95 Room Air 04/17/24 03:21 36.6 C 69 18 125/84 93 Room Air Laboratory Results BMP 04/17/24 07:11 Sodium 139 Potassium 3.5 Chloride 107 Carbon Dioxide 25 BUN 28 H Creatinine 1.17 Glucose 95 Calcium 8.4 L Medications Administered Current Inpatient Medications Acetaminophen (Acetaminophen 325 Mg Tab) 650 mg PO Q4H PRN PRN Reason: pain/fever Stop: 05/12/24 15:52 Last Admin: 04/16/24 23:05 Dose: 650 mg Apixaban (Apixaban 5 Mg Tablet) 5 mg PO BID MARY Stop: 05/13/24 10:14 Last Admin: 04/17/24 08:42 Dose: 5 mg Calcium Carbonate (Calcium Carbonate 1250mg Tab) 1 tab PO DAILY [facility] Stop: 05/15/24 08:59 Last Admin: 04/17/24 08:42 Dose: 1 tab Norepinephrine Bitartrate (Levophed/D5w) 4 mg in 250 mls @ 0 mls/hr IV .Q0M [facility]; Protocol Stop: 05/12/24 13:14 Last Titration: 04/14/24 16:16 Dose: Infused Parenteral Electrolytes (Plasma-Lyte A Ph 7.4) 1,000 mls @ 50 mls/hr IV .Q20H [facility] Stop: 05/12/24 20:14 Last Admin: 04/17/24 04:20 Dose: 50 mls/hr Ceftriaxone Sodium (Rocephin) 2,000 mg in 50 mls @ 100 mls/hr IV Q24H MARY Stop: 04/28/24 15:59 Last Infusion: 04/16/24 16:44 Dose: Infused Multivitamins (Multivitamin Tab) 1 tab PO DAILY [facility] Stop: 05/15/24 08:59 Last Admin: 04/17/24 08:42 Dose: 1 tab Ondansetron HCl (Ondansetron Inj 2 Mg/Ml 2 Ml Vial) 4 mg IV Q6H PRN PRN Reason: Nausea Stop: 05/12/24 15:52 Oxybutynin Chloride (Oxybutynin Chloride Xl 5 Mg Tabcr) 5 mg PO QAM [facility]; Protocol Stop: 05/13/24 08:59 Last Admin: 04/17/24 08:42 Dose: 5 mg Polyethylene Glycol (Polyethylene (Miralax) 17 Gm Pack) 17 gm PO DAILY PRN PRN Reason: Constipation Stop: 05/12/24 15:52 Sertraline HCl (Sertraline Hcl 50 Mg Tablet) 150 mg PO QAM [facility] Stop: 05/13/24 08:59 Last Admin: 04/17/24 08:42 Dose: 150 mg Vitamin D (Cholecalciferol 25 Mcg (1000 Units) Tab) 25 mcg PO DAILY MARY Stop: 05/15/24 08:59 Last Admin: 04/17/24 08:42 Dose: 25 mcg (13) Hyperlipidemia Hyperlipidemia type: unspecified Qualified Code(s): E78.5 - Hyperlipidemia, unspecified (15) Depression Depression Type: unspecified Qualified Code(s): F32.A - Depression, unspecified (16) Urinary incontinence Urinary Incontinence type: unspecified incontinence Qualified Code(s): R32 - Unspecified urinary incontinence (17) Hypertension Hypertension type: unspecified Qualified Code(s): I10 - Essential (primary) hypertension
[2024-04-18 07:59] LABS: Basophils # (auto) 0.03 K/uL (0.00-0.20); Basophils % (auto) 0.3 %; Eosinophils % (auto) 3.3 %; Hematocrit (blood only) 31.8 % (37.0-47.0); Hemoglobin 10.6 g/dl (12.0-16.0); Immature Granulocytes # (auto) 0.26 K/uL (0.01-0.20); Immature Granulocytes % (auto) 2.8 %; Lymphocytes # (auto) 0.95 K/uL (1.20-3.40); Lymphocytes % (auto) 10.3 %; Mean Corpuscular Hemoglobin 27.6 pg (25.0-34.0); Mean Corpuscular Hgb Conc 33.3 g/dL (32.0-36.0); Mean Corpuscular Volume 82.8 fL (80.0-100.0); Mean Platelet Volume 12.8 fL (9.4-12.4); Monocytes % (auto) 11.9 %; Neutrophils # (auto) 6.57 K/uL (1.40-6.50); Neutrophils % (auto) 71.4 %; Platelet Count 170 K/uL (130-400); RDW Coefficient of Variation 15.2 % (11.5-14.5); Red Blood Count 3.84 M/uL (4.20-5.40); White Blood Count 9.21 K/ul (4.8-10.8)
[2024-04-18 08:06] LABS: BUN Creatinine Ratio 21.8 (10-20); Calcium 8.3 mg/dl (8.6-10.3); Creatinine Clr Calc Pharmacy 59.2 ml/min; Est GFR (African American) 62.2 ml/min; Est GFR (Non-African American) 53.7 ml/min; Potassium 3.3 mmol/L (3.5-5.1)
[2024-04-18] MEDS: POTASSIUM CHLORIDE CRTAB 20 MEQ TABCR PO STA (09:04)
--- NOTE | 2024-04-18 12:01 | Hospitalist Progress Note ---
Date of Service April 18, 2024 Assessment & Plan (1) Septic shock: Plan: Iram Valentino is a 78y/o F with PMHx of prediabetes, paraesophageal hiatal hernia, persistent afib [on Eliquis], urinary incontinence, recurrent UTI and other problems listed below who presented to the ED via EMS for medical evaluation s/p fall this morning + nausea/diarrhea x 4 days and was found to have a 15mm obstructing stone at the R ureteropelvic junction causing moderate R hydronephrosis and emphysematous pyelonephritis. Patient does note an extensive history of recurrent UTIs. Patient notes she has had ~3 UTIs this year. She also has a hx of kidney stones, per my discussion w/ the patient. * Per [facility] documentation, most recent urine culture grew the following: E. coli and Aerococcus urinae --> Completed 03/25/2024. Secondary to hydronephrosis with obstructive calculus Status post cystoscopy, right ureteral stent placement on 04/12/2024 Appreciate urology input and recommendation E. coli septic shock-has been on intravenous Zosyn Gram-negative bacilli bacteremia further identification and sensitivities are pending-came out to be E. 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 pure pak machine operator input and recommendation Off Levophed for the last few hours but the blood pressure seems to be going down Clinically much better today-Will change diet to AHA Has been making out a reasonable amount of urine and the kidney function has been improved Clinically much improved and remains hemodynamically stable Diet has been advanced and she will have PT and OT evaluation Clinically much better we will continue total intravenous antibiotic for 14 days No signs and or symptoms of ongoing infection Denies any significant symptoms except weakness (2) Hydronephrosis with obstructing calculus: Plan: Status post cystoscopy and right ureteric stent placement (3) Acute kidney failure: Plan: Baseline creatinine of 1 in 2023 Seems to have ischemic ATN with septic shock and creatinine went up to 3.0 Appreciate nephrology input and recommendation Has been getting intravenous fluid Not having enough urine output Will avoid any NSAIDs or other nephrotoxins No indication for emergent dialysis yet BUN and creatinine are better today Will continue with the current management Kidney functions keep improving-advised to drink more fluid Kidney function is much improved with improvement of creatinine to 1.45 from 2.98 as of 04/16/2024 Kidney function is even better with creatinine running almost normal IV fluid will be discontinued Advised to drink more fluid Kidney functions remains normal (4) Elevated troponin: Plan: Initial troponin on admission was 748 and that went up to 2293 and since then has been improving Likely secondary to stress-induced and shock with ATN EKG showed atrial fibrillation without any acute ST-T wave changes Echo of the heart showed-atrial fibrillation with ventricular rate in the range of 100 208, mild concentric LVH, LV wall motion is normal, LV systolic function is normal with EF 55 to 60%, aortic valve sclerosis mild without significant stenosis, pulmonary artery systolic pressure estimated to be 40 mmHg Doubt any ACS Denies any cardiac symptoms Mild rhabdomyolysis CK was 805 Contributed by NATALIO Rhabdomyolysis is improved (5) Emphysematous pyelonephritis: Plan: As above No shortness of breath at rest (6) Metabolic acidosis: Plan: No leukocytosis. Initial lactate 8.1, repeat lactate ~2 hours later --> 6.2 [ downtrending]. Evidence of metabolic acidosis with anion gap 17. Total bili 1.4, AST 69, and Alk Phos 124. Gap seems to be closed Will monitor lactic acid-normalized (7) Gastroenteritis: Plan: As per above: * Head CT displayed no acute injury or cranial abnormality. * Face CT showed no acute facial bone fracture. However, there is nonspecific left supraclavicular lymphadenopathy noted. * Cervical spine CT revealed no evidence of fracture or subluxation involving the cervical spine; osteopenia and spondylitic changes noted. -Stool culture NEGATIVE. Will continue aggressive IVF, IV Zosyn ordered. -PRN IV Zofran in place, monitor I&O's [as per above, Iniguez catheter in place]. -No more GI symptoms (8) NATALIO (acute kidney injury): Plan: NATALIO resolved Notes from admitting physician: Total CK 805. Initial troponin 748.3, repeat troponin ~2 hours later --> 759.8 [ trending upwards]. Evidence of NATALIO with creatinine 2.98. BUN 39, GFR 14.5 --> Appears to be in ACUTE KIDNEY FAILURE. Chest x-ray revealed no acute process. Head CT displayed no acute injury or cranial abnormality. Face CT showed no acute facial bone fracture. However, there is nonspecific left supraclavicular lymphadenopathy noted. Cervical spine CT revealed no evidence of fracture or subluxation involving the cervical spine; osteopenia and spondylitic changes noted. As previously eluded to, CTAB revealed the following: * 15 mm obstructing calculus at the right ureteropelvic junction, causing moderate right hydronephrosis. * Additional bilateral renal calculi per imaging report. Bladder appears thick-w alled and contains intraluminal gas. There is also gas within the right renal collecting system. * Urothelial thickening is seen within the renal pelvis bilaterally, perinephric stranding is asymmetrically greater on the right. * Small right and trace left pleural effusions, cardiomegaly and hiatal hernia. Small volume pelvic ascites. Of note, a Iniguez catheter was placed in the ED. PATIENT MEETS SEPSIS CRITERIA GIVEN FINDINGS ABOVE. She was administered the following in the ED: IV Zosyn 4.5g and 2.5L IV NSS. Urology [Dr. Dior] was consulted by ED provider (Teofilo Lewis PA-C) following discovery of CTAB findings above. Her SBP consistently remained low in the 60-80s in the ED, thus prompting administration of Levophed per Dr. Dior's orders. Patient was quickly taken to the OR for cystoscopy and R ureteral stent placement. * She will require ICU placement following the procedure given administration of a pressor agent/current level of care requirements. -Continuous cardiac monitoring --> Afib w/ RVR in ED. -RVP, Lyme disease screening negative. -Ordered additional IVF, IV Zosyn to begin upon transfer. -UA/urine culture pending, uncollected as of now but orders are in place. -Nephrology consult ordered, appreciate their recommendation(s)/input. -Measure I&O's, Iniguez catheter in place as per above. Blood culture received, results pending. -Repeat CMP, troponin and CBC (no diff) in AM --> Monitor LFTs given recent bump. Any additional AM labs per ICU. (9) Fall: (10) Dehydration symptoms: (11) Persistent atrial fibrillation: Plan: Has been back on Eliquis (12) Chronic anticoagulation: Plan: Per my interpretation, EKG performed in the ED revealed the following: afib w/ RVR, HR 106bpm, QRS Dur 96ms and QT/QTc 358/475ms. When compared to EKG done 01/07/2017: afib has replaced sinus rhythm, nonspecific T wave abnormality now evident in anterior leads and QT has lengthened. Patient does follow with [facility]. Per [facility] documentation, it appears that she is scheduled to have a Watchman device placed in June (06/23/24) with Dr. Lea Carroll @ [facility] [place]. -Continuous cardiac monitoring as per above, HOLD Eliquis and aspirin for now -- > Plt count on admission = 83. Eliquis has been restarted (13) Hyperlipidemia: Plan: -Will HOLD statin therapy for now given current evidence of acute renal failure/NATALIO. -Will start statin on discharge (14) Prediabetes: Plan: Most recent Hgb A1C 5.9, completed 02/20/24. -Diet-controlled, no need to repeat Hgb A1C at this time given findings above. 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 (16) Urinary incontinence: Plan: -Can continue PROCESS CONTROL ENGINEER trospium chloride therapy while hospitalized. -Iniguez catheter in place as above, continue to closely monitor I&O's throughout hospitalization. (17) Hypertension: Plan: -Will HOLD metoprolol succinate for now --> Most recently recorded BP 73/52, SBP appears to be holding ~80s in the ED. -Can reassess need throughout hospitalization, coordinate restarting BB therapy as appropriate. DVT Prophylaxis: Has been back on Eliquis Code Status: Full Code PCP: Arlyn Vallecillo DO Dispo: Admit to ICU --> PATIENT WILL BE PLACED IN ICU FOLLOWING UROLOGICAL PROCEDURE W/ DR. DIOR. * Coordinate care w/ ICU to determine when patient will be stable enough to transition to PCU level of care. Blood pressure is controlled now Admission and Anticipated Discharge Date Admission Date: April 12, 2024 Subjective 04/13/2024 The patient was seen and examined in ICU She has been feeling much better today Remain generally weak and lethargic Still remains on pressors and trying to wean off it No fever and no chills 04/14/2024 The patient was seen and examined in ICU She has been feeling much better but the blood pressure remains on the lower side after taking of Levophed Denies any symptoms at bed Has been diuresing reasonably and kidney function is improving Wants some salt in diet 04/15/2024 The patient was seen and examined in telemetry unit She has been feeling much better today Weakness has improved and denies any other significant symptoms Will get PT and OT involved 04/16/2024 The patient was seen and examined in telemetry unit She remains anorexic but otherwise has been feeling lot better Has been getting physical therapy and weakness is improving Kidney function is improving as well 04/17/2024 The patient was seen and examined in telemetry unit She has been feeling much better though remain generally weak Feels that she is not yet ready to be discharged She will get physical therapy and will probably need placement 04/18/2024 The patient was seen and examined in telemetry unit She has been feeling much better but remain generally weak Has been getting physical therapy and thinks that she will need to go to rehab Denies any other significant symptoms Review of Systems Review of Systems: All systems reviewed and are unremarkable except as noted below Physical Exam Physical Exam: Lying in bed comfortably Constitutional: well developed, well nourished and + ill appearing Eyes: PERRL, conjunctivae normal, anicteric sclerae ENMT: external ear and nose normal, oropharynx normal Neck: trachea midline, no thyromegaly Respiratory: no respiratory distress Auscultation: + diminished lung sounds and + crackles (Minimal bibasilar crackles) Cardiovascular: Rate/Rhythm: regular rate, regular rhythm and + tachycardic Heart Sounds: normal S1 and normal S2; no murmur Extremities: no edema Gastrointestinal (Abdomen): Inspection/Auscultation: normal bowel sounds; abdomen not distended Percussion/Palpation: abdomen soft; abdomen nontender Neurologic: normal touch/pain/proprioception and moves all extremities; no focal motor deficits Lymphatic: no cervical or axillary lymphadenopathy Results & Data Results & Data Vital Signs (Past 12 Hours) Vital Signs Temp Pulse Resp BP Pulse Ox O2 Del Method 04/18/24 11:37 36.8 C 94 H 16 124/76 96 Room Air 04/18/24 08:00 Room Air 04/18/24 07:37 36.8 C 76 15 124/76 95 Room Air 04/18/24 02:56 36.9 C 80 18 127/79 94 Room Air Laboratory Results Short CBC 04/18/24 Range/Units 07:29 WBC 9.21 (4.8-10.8) K/ul Hgb 10.6 L (12.0-16.0) g/dl Hct 31.8 L (37.0-47.0) % Plt Count 170 (130-400) K/uL BMP 04/18/24 07:29 Sodium 140 Potassium 3.3 L Chloride 108 H Carbon Dioxide 27 BUN 22 Creatinine 1.01 Glucose 92 Calcium 8.3 L Medications Administered Current Inpatient Medications Acetaminophen (Acetaminophen 325 Mg Tab) 650 mg PO Q4H PRN PRN Reason: pain/fever Stop: 05/12/24 15:52 Last Admin: 04/17/24 22:34 Dose: 650 mg Apixaban (Apixaban 5 Mg Tablet) 5 mg PO BID [facility] Stop: 05/13/24 10:14 Last Admin: 04/18/24 08:24 Dose: 5 mg Calcium Carbonate (Calcium Carbonate 1250mg Tab) 1 tab PO DAILY [facility] Stop: 05/15/24 08:59 Last Admin: 04/18/24 08:25 Dose: 1 tab Norepinephrine Bitartrate (Levophed/D5w) 4 mg in 250 mls @ 0 mls/hr IV .Q0M [facility]; Protocol Stop: 05/12/24 13:14 Last Titration: 04/14/24 16:16 Dose: Infused Ceftriaxone Sodium (Rocephin) 2,000 mg in 50 mls @ 100 mls/hr IV Q24H [facility] Stop: 04/28/24 15:59 Last Infusion: 04/17/24 16:47 Dose: Infused Multivitamins (Multivitamin Tab) 1 tab PO DAILY [facility] Stop: 05/15/24 08:59 Last Admin: 04/18/24 08:25 Dose: 1 tab Ondansetron HCl (Ondansetron Inj 2 Mg/Ml 2 Ml Vial) 4 mg IV Q6H PRN PRN Reason: Nausea Stop: 05/12/24 15:52 Oxybutynin Chloride (Oxybutynin Chloride Xl 5 Mg Tabcr) 5 mg PO QAM [facility]; Protocol Stop: 05/13/24 08:59 Last Admin: 04/18/24 08:25 Dose: 5 mg Polyethylene Glycol (Polyethylene (Miralax) 17 Gm Pack) 17 gm PO DAILY PRN PRN Reason: Constipation Stop: 05/12/24 15:52 Sertraline HCl (Sertraline Hcl 50 Mg Tablet) 150 mg PO QAM [facility] Stop: 05/13/24 08:59 Last Admin: 04/18/24 08:24 Dose: 150 mg Vitamin D (Cholecalciferol 25 Mcg (1000 Units) Tab) 25 mcg PO DAILY [facility] Stop: 05/15/24 08:59 Last Admin: 04/18/24 08:24 Dose: 25 mcg (13) Hyperlipidemia Hyperlipidemia type: unspecified Qualified Code(s): E78.5 - Hyperlipidemia, unspecified (15) Depression Depression Type: unspecified Qualified Code(s): F32.A - Depression, unspecified (16) Urinary incontinence Urinary Incontinence type: unspecified incontinence Qualified Code(s): R32 - Unspecified urinary incontinence (17) Hypertension Hypertension type: unspecified Qualified Code(s): I10 - Essential (primary) hypertension
[2024-04-18 12:08] LABS: Ehrlichia chaff DNA Bld Negative (Negative)
--- NOTE | 2024-04-19 14:14 | Hospitalist Progress Note ---
Date of Service April 19, 2024 Assessment & Plan (1) Septic shock: Plan: Iram Valentino is a 78y/o F with PMHx of prediabetes, paraesophageal hiatal hernia, persistent afib [on Eliquis], urinary incontinence, recurrent UTI and other problems listed below who presented to the ED via EMS for medical evaluation s/p fall this morning + nausea/diarrhea x 4 days and was found to have a 15mm obstructing stone at the R ureteropelvic junction causing moderate R hydronephrosis and emphysematous pyelonephritis. Patient does note an extensive history of recurrent UTIs. Patient notes she has had ~3 UTIs this year. She also has a hx of kidney stones, per my discussion w/ the patient. * Per [facility] documentation, most recent urine culture grew the following: E. coli and Aerococcus urinae --> Completed 03/25/2024. Secondary to hydronephrosis with obstructive calculus Status post cystoscopy, right ureteral stent placement on 04/12/2024 Appreciate urology input and recommendation E. coli septic shock-has been on intravenous Zosyn Gram-negative bacilli bacteremia further identification and sensitivities are pending-came out to be E. 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 Off Levophed for the last few hours but the blood pressure seems to be going down Clinically much better today-Will change diet to AHA Has been making out a reasonable amount of urine and the kidney function has been improved Clinically much improved and remains hemodynamically stable Diet has been advanced and she will have PT and OT evaluation Clinically much better we will continue total intravenous antibiotic for 14 days No signs and or symptoms of ongoing infection Denies any significant symptoms except weakness Will need to have ultrasound-guided peripheral line to continue IV ceftriaxone until 04/28/2024 Likely be discharged either this evening or tomorrow morning (2) Hydronephrosis with obstructing calculus: Plan: Status post cystoscopy and right ureteric stent placement Denies any pain pain in the abdomen or in renal angle (3) Acute kidney failure: Plan: Baseline creatinine of 1 in 2023 Seems to have ischemic ATN with septic shock and creatinine went up to 3.0 Appreciate nephrology input and recommendation Has been getting intravenous fluid Not having enough urine output Will avoid any NSAIDs or other nephrotoxins No indication for emergent dialysis yet BUN and creatinine are better today Will continue with the current management Kidney functions keep improving-advised to drink more fluid Kidney function is much improved with improvement of creatinine to 1.45 from 2.98 as of 04/16/2024 Kidney function is even better with creatinine running almost normal IV fluid will be discontinued Advised to drink more fluid Kidney functions remains normal and maintaining Advised to continue with more fluid intake (4) Elevated troponin: Plan: Initial troponin on admission was 748 and that went up to 2293 and since then has been improving Likely secondary to stress-induced and shock with ATN EKG showed atrial fibrillation without any acute ST-T wave changes Echo of the heart showed-atrial fibrillation with ventricular rate in the range of 100 208, mild concentric LVH, LV wall motion is normal, LV systolic function is normal with EF 55 to 60%, aortic valve sclerosis mild without significant stenosis, pulmonary artery systolic pressure estimated to be 40 mmHg Doubt any ACS Denies any cardiac symptoms Mild rhabdomyolysis CK was 805 Contributed by NATALIO Rhabdomyolysis is improved (5) Emphysematous pyelonephritis: Plan: As above No shortness of breath at rest (6) Metabolic acidosis: Plan: No leukocytosis. Initial lactate 8.1, repeat lactate ~2 hours later --> 6.2 [ downtrending]. Evidence of metabolic acidosis with anion gap 17. Total bili 1.4, AST 69, and Alk Phos 124. Gap seems to be closed Will monitor lactic acid-normalized (7) Gastroenteritis: Plan: As per above: * Head CT displayed no acute injury or cranial abnormality. * Face CT showed no acute facial bone fracture. However, there is nonspecific left supraclavicular lymphadenopathy noted. * Cervical spine CT revealed no evidence of fracture or subluxation involving the cervical spine; osteopenia and spondylitic changes noted. -Stool culture NEGATIVE. Will continue aggressive IVF, IV Zosyn ordered. -PRN IV Zofran in place, monitor I&O's [as per above, Iniguez catheter in place]. -No more GI symptoms (8) NATALIO (acute kidney injury): Plan: NATALIO resolved Notes from admitting physician: Total CK 805. Initial troponin 748.3, repeat troponin ~2 hours later --> 759.8 [ trending upwards]. Evidence of NATALIO with creatinine 2.98. BUN 39, GFR 14.5 --> Appears to be in ACUTE KIDNEY FAILURE. Chest x-ray revealed no acute process. Head CT displayed no acute injury or cranial abnormality. Face CT showed no acute facial bone fracture. However, there is nonspecific left supraclavicular lymphadenopathy noted. Cervical spine CT revealed no evidence of fracture or subluxation involving the cervical spine; osteopenia and spondylitic changes noted. As previously eluded to, CTAB revealed the following: * 15 mm obstructing calculus at the right ureteropelvic junction, causing moderate right hydronephrosis. * Additional bilateral renal calculi per imaging report. Bladder appears thick- walled and contains intraluminal gas. There is also gas within the right renal collecting system. * Urothelial thickening is seen within the renal pelvis bilaterally, perinephric stranding is asymmetrically greater on the right. * Small right and trace left pleural effusions, cardiomegaly and hiatal hernia. Small volume pelvic ascites. Of note, a Iniguez catheter was placed in the ED. PATIENT MEETS SEPSIS CRITERIA GIVEN FINDINGS ABOVE. She was administered the following in the ED: IV Zosyn 4.5g and 2.5L IV NSS. Urology [Dr. Dior] was consulted by ED provider (Teofilo Lewis PA-C) followin g discovery of CTAB findings above. Her SBP consistently remained low in the 60- 80s in the ED, thus prompting administration of Levophed per Dr. Dior's orders. Patient was quickly taken to the OR for cystoscopy and R ureteral stent placement. * She will require ICU placement following the procedure given administration of a pressor agent/current level of care requirements. -Continuous cardiac monitoring --> Afib w/ RVR in ED. -RVP, Lyme disease screening negative. -Ordered additional IVF, IV Zosyn to begin upon transfer. -UA/urine culture pending, uncollected as of now but orders are in place. -Nephrology consult ordered, appreciate their recommendation(s)/input. -Measure I&O's, Iniguez catheter in place as per above. Blood culture received, results pending. -Repeat CMP, troponin and CBC (no diff) in AM --> Monitor LFTs given recent bump. Any additional AM labs per ICU. (9) Fall: (10) Dehydration symptoms: (11) Persistent atrial fibrillation: Plan: Has been back on Eliquis (12) Chronic anticoagulation: Plan: Per my interpretation, EKG performed in the ED revealed the following: afib w/ RVR, HR 106bpm, QRS Dur 96ms and QT/QTc 358/475ms. When compared to EKG done 01/07/2017: afib has replaced sinus rhythm, nonspecific T wave abnormality now evident in anterior leads and QT has lengthened. Patient does follow with [facility]. Per [facility] documentation, it appears that she is scheduled to have a Watchman device placed in June (06/23/24) with Dr. Lea Carroll @ [facility] [place]. -Continuous cardiac monitoring as per above, HOLD Eliquis and aspirin for now --> Plt count on admission = 83. Eliquis has been restarted (13) Hyperlipidemia: Plan: -Will HOLD statin therapy for now given current evidence of acute renal failure/NATALIO. -Will start statin on discharge (14) Prediabetes: Plan: Most recent Hgb A1C 5.9, completed 02/20/24. -Diet-controlled, no need to repeat Hgb A1C at this time given findings above. (15) Depression: Plan: -Can continue RETAIL ANALYST Zoloft while hospitalized. (16) Urinary incontinence: Plan: -Can continue RETAIL ANALYST trospium chloride therapy while hospitalized. -Iniguez catheter in place as above, continue to closely monitor I&O's throughout hospitalization. (17) Hypertension: Plan: -Will HOLD metoprolol succinate for now --> Most recently recorded BP 73/52, SBP appears to be holding ~80s in the ED. -Can reassess need throughout hospitalization, coordinate restarting BB therapy as appropriate. DVT Prophylaxis: Has been back on Eliquis Code Status: Full Code PCP: Arlyn Vallecillo DO Dispo: Admit to ICU --> PATIENT WILL BE PLACED IN ICU FOLLOWING UROLOGICAL PROCEDURE W/ DR. DIOR. * Coordinate care w/ ICU to determine when patient will be stable enough to transition to PCU level of care. Blood pressure is controlled now Admission and Anticipated Discharge Date Admission Date: April 12, 2024 Subjective 04/13/2024 The patient was seen and examined in ICU She has been feeling much better today Remain generally weak and lethargic Still remains on pressors and trying to wean off it No fever and no chills 04/14/2024 The patient was seen and examined in ICU She has been feeling much better but the blood pressure remains on the lower side after taking of Levophed Denies any symptoms at bed Has been diuresing reasonably and kidney function is improving Wants some salt in diet 04/15/2024 The patient was seen and examined in telemetry unit She has been feeling much better today Weakness has improved and denies any other significant symptoms Will get PT and OT involved 04/16/2024 The patient was seen and examined in telemetry unit She remains anorexic but otherwise has been feeling lot better Has been getting physical therapy and weakness is improving Kidney function is improving as well 04/17/2024 The patient was seen and examined in telemetry unit She has been feeling much better though remain generally weak Feels that she is not yet ready to be discharged She will get physical therapy and will probably need placement 04/18/2024 The patient was seen and examined in telemetry unit She has been feeling much better but remain generally weak Has been getting physical therapy and thinks that she will need to go to rehab Denies any other significant symptoms 04/19/2024 The patient was seen and examined in medical floor She has been feeling much better and has been getting physical therapy No fever and no chills Has been accepted to [facility] and likely be transferred out of this evening or tomorrow morning Review of Systems Review of Systems: All systems reviewed and are unremarkable except as noted below Physical Exam Physical Exam: Lying in bed comfortably Constitutional: well developed, well nourished and + ill appearing Eyes: PERRL, conjunctivae normal, anicteric sclerae ENMT: external ear and nose normal, oropharynx normal Neck: trachea midline, no thyromegaly Respiratory: no respiratory distress Auscultation: + diminished lung sounds and + crackles (Minimal bibasilar crackles) Cardiovascular: Rate/Rhythm: regular rate, regular rhythm and + tachycardic Heart Sounds: normal S1 and normal S2; no murmur Extremities: no edema Gastrointestinal (Abdomen): Inspection/Auscultation: normal bowel sounds; abdomen not distended Percussion/Palpation: abdomen soft; abdomen nontender Musculoskeletal: No acute arthritis involving any of the joints Neurologic: normal touch/pain/proprioception and moves all extremities; no focal motor deficits Lymphatic: no cervical or axillary lymphadenopathy Results & Data Results & Data Vital Signs (Past 12 Hours) Vital Signs Temp Pulse Resp BP Pulse Ox O2 Del Method 04/19/24 06:53 36.8 C 71 18 119/71 95 Room Air Medications Administered Current Inpatient Medications Acetaminophen (Acetaminophen 325 Mg Tab) 650 mg PO Q4H PRN PRN Reason: pain/fever Stop: 05/12/24 15:52 Last Admin: 04/18/24 21:00 Dose: 650 mg Apixaban (Apixaban 5 Mg Tablet) 5 mg PO BID [facility] Stop: 05/13/24 10:14 Last Admin: 04/19/24 09:52 Dose: 5 mg Calcium Carbonate (Calcium Carbonate 1250mg Tab) 1 tab PO DAILY [facility] Stop: 05/15/24 08:59 Last Admin: 04/19/24 09:52 Dose: 1 tab Ceftriaxone Sodium (Rocephin) 2,000 mg in 50 mls @ 100 mls/hr IV Q24H [facility]ARY Stop: 04/28/24 15:59 Last Infusion: 04/18/24 18:17 Dose: Infused Multivitamins (Multivitamin Tab) 1 tab PO DAILY MARY Stop: 05/15/24 08:59 Last Admin: 04/19/24 09:52 Dose: 1 tab Ondansetron HCl (Ondansetron Inj 2 Mg/Ml 2 Ml Vial) 4 mg IV Q6H PRN PRN Reason: Nausea Stop: 05/12/24 15:52 Oxybutynin Chloride (Oxybutynin Chloride Xl 5 Mg Tabcr) 5 mg PO QAM MARY; Protocol Stop: 05/13/24 08:59 Last Admin: 04/19/24 09:52 Dose: 5 mg Polyethylene Glycol (Polyethylene (Miralax) 17 Gm Pack) 17 gm PO DAILY PRN PRN Reason: Constipation Stop: 05/12/24 15:52 Sertraline HCl (Sertraline Hcl 50 Mg Tablet) 150 mg PO QAM [facility] Stop: 05/13/24 08:59 Last Admin: 04/19/24 09:52 Dose: 150 mg Vitamin D (Cholecalciferol 25 Mcg (1000 Units) Tab) 25 mcg PO DAILY MARY Stop: 05/15/24 08:59 Last Admin: 04/19/24 09:52 Dose: 25 mcg (13) Hyperlipidemia Hyperlipidemia type: unspecified Qualified Code(s): E78.5 - Hyperlipidemia, unspecified (15) Depression Depression Type: unspecified Qualified Code(s): F32.A - Depression, unspecified (16) Urinary incontinence Urinary Incontinence type: unspecified incontinence Qualified Code(s): R32 - Unspecified urinary incontinence (17) Hypertension Hypertension type: unspecified Qualified Code(s): I10 - Essential (primary) hypertension
--- NOTE | 2024-04-19 18:31 | Discharge Summary ---
Date of Service April 19, 2024 Admission HPI Per Admitting Provider Iram Valentino is a 78y/o F with PMHx of prediabetes, paraesophageal hiatal hernia, persistent atrial fibrillation [on Eliquis], urinary incontinence, recurrent UTI and other problems listed below who presented to the ED via EMS for evaluation s/p fall this morning and nausea/diarrhea x 4 days. History obtained from patient, and associated ED/PCP/specialist records. She is accompanied by a close relative in the room. Patient states that she has been experiencing nausea and diarrhea x 4 days. She denies any episodes of vomiting, but does endorse intermittent dry heaving. She has also had some intermittent right-sided flank pain since Thursday, which does not radiate anywhere. She is not currently having any pain. Patient reports that she has not had really anything to eat since Thursday. Reports poor hydration status, really unable to tolerate anything by mouth. Reports no significant urinary or bowel habit changes. As per above, she is on chronic Eliquis therapy d/t paroxysmal afib hx. She has had a large amount of diarrhea over the past couple of days, as previously mentioned, but denies any bloody bowel movements. She has been taking Zofran at home for the nausea with some relief, but it has not subsided entirely. She is not currently nauseous during our conversation. She has been taking Tylenol at home for the right-sided flank pain with some relief. She did have a fall out of bed this morning when trying to get up and subsequently hit her face and R shoulder off of the bed said nightstand. Patient reports never losing consciousness. It appears to have been a mechanical fall per talking w/ the patient. She states she may have felt a little lightheaded/dizzy at home intermittently, but did not feel these sensations prior to the fall this morning. Patient was able to get in contact with a close relative, who alerted EMS. She was on the floor for no longer than 45 minutes per her relative's recollection. She currently denies any lightheadedness/dizziness or headaches. Our conversation unfortunately had to be cut short d/t her requiring an emergent urologic procedure given the imaging findings below. Patient does note an extensive history of recurrent UTIs. Patient notes she has had ~3 UTIs this year. * Per [facility] documentation, most recent urine culture grew the following: E. coli and Aerococcus urinae --> Completed 03/25/2024. Vitals on admission: BP 107/77, RR 21, HR 109, Temp 36.9oC and SpO2 96% on RA. No leukocytosis. Initial lactate 8.1, repeat lactate ~2 hours later --> 6.2 [ downtrending]. Evidence of metabolic acidosis with anion gap 17. Total bili 1.4, AST 69, and Alk Phos 124. Total CK 805. Initial troponin 748.3, repeat troponin ~2 hours later --> 759.8 [ trending upwards]. Evidence of NATALIO with creatinine 2.98. BUN 39, GFR 14.5 --> Appears to be in ACUTE KIDNEY FAILURE. Chest x-ray revealed no acute process. Head CT displayed no acute injury or cranial abnormality. Face CT showed no acute facial bone fracture. However, there is nonspecific left supraclavicular lymphadenopathy noted. Cervical spine CT revealed no evidence of fracture or subluxation involving the cervical spine; osteopenia and spondylitic changes noted. CTAB revealed the following: * 15 mm obstructing calculus at the right ureteropelvic junction, causing moderate right hydronephrosis. * Additional bilateral renal calculi per imaging report. Bladder appears thick- walled and contains intraluminal gas. There is also gas within the right renal collecting system. * Urothelial thickening is seen within the renal pelvis bilaterally, perinephric stranding is asymmetrically greater on the right. * Small right and trace left pleural effusions, cardiomegaly and hiatal hernia. Small volume pelvic ascites. PATIENT MEETS SEPSIS CRITERIA Admission Exam Per Admitting Provider Physical Exam: General Appearance: Laying flat in bed, conversing appropriately. Appears quite dry on initial visual contact, no acute distress. Head/Face: Bruising noted on her chin, skin intact. No gross deformity. Eyes: Normal inspection, PERRL, conjunctivae normal, anicteric sclerae. ENT: External ear and nose normal, mucous membranes very dry in appearance. Neck: Normal visual inspection, trachea midline, no thyromegaly. No tenderness or deformity. Respiratory: Normal respiratory effort, lungs clear to auscultation, no wheeze, rales, rhonchi. No accessory muscle use. Cardiovascular: Irregular rate and rhythm. No murmur, normal peripheral pulses, no BLE edema. Vessels: No JVD. Chest: Normal inspection of chest. Abdomen/GI: Normal bowel sounds, soft, nontender, no hepatosplenomegaly. Extremities/Musculoskeletal: Additional bruising on R shoulder, skin intact. Can move all extremities, strength 5/5 bilaterally in UE and LE. Neurologic: PERRL, EOMI, accommodation nl, no face palsy, no dysarthria, CN's II-XI grossly intact bilaterally. Psychiatric: A+Ox3, euthymic affect. Very pleasant during our conversation, aware of the situation at hand. Skin: As per above, bruising noted on chin and R shoulder. No rashes noted. Principal Diagnosis Septic shock, hydronephrosis with obstructing calculus status post stent placement, NATALIO-improved Discharge Exam Lying in bed comfortably Constitutional well developed, well nourished and + ill appearing Eyes PERRL, conjunctivae normal, anicteric sclerae ENMT external ear and nose normal, oropharynx normal Neck trachea midline, no thyromegaly Respiratory no respiratory distress Auscultation: + diminished lung sounds and + crackles (Minimal bibasilar crackles) Cardiovascular Rate/Rhythm: regular rate, regular rhythm and + tachycardic Heart Sounds: normal S1 and normal S2; no murmur Extremities: no edema Gastrointestinal (Abdomen) Inspection/Auscultation: normal bowel sounds; abdomen not distended Percussion/Palpation: abdomen soft; abdomen nontender Neurologic normal touch/pain/proprioception and moves all extremities; no focal motor deficits Lymphatic no cervical or axillary lymphadenopathy Discharge Data Allergies Allergy/AdvReac Type Severity Reaction Status Date / Time codeine AdvReac Mild ITCHING Verified 04/12/24 13:57 Consultations 04/12/24 11:45 ED Decision to Admit Stat 04/12/24 12:15 Consult Nephrology Routine 04/12/24 15:12 Consult Tubular Riveter Routine Procedures Performed Operation Date: 04/12/24 11:30 Actual Procedures p Cystoscopy, Right Ureteral Stent Placement(Right) - Jose Dior MD Ordered Studies 04/12/24 FL KUB Routine 04/12/24 10:30 CT cervical spine wo con Stat CT facial bones wo con Stat CT head/brain wo con Stat 04/12/24 12:13 CT Abd and Pelvis [CT abd pelvis wo con] Stat Hospital Course (1) Septic shock: Iram Chicho is a 78y/o F with PMHx of prediabetes, paraesophageal hiatal hernia, persistent afib [on Eliquis], urinary incontinence, recurrent UTI and other problems listed below who presented to the ED via EMS for medical evaluation s/p fall this morning + nausea/diarrhea x 4 days and was found to have a 15mm obstructing stone at the R ureteropelvic junction causing moderate R hydronephrosis and emphysematous pyelonephritis. Patient does note an extensive history of recurrent UTIs. Patient notes she has had ~3 UTIs this year. She also has a hx of kidney stones, per my discussion w/ the patient. * Per [facility] documentation, most recent urine culture grew the following: E. coli and Aerococcus urinae --> Completed 03/25/2024. Secondary to hydronephrosis with obstructive calculus Status post cystoscopy, right ureteral stent placement on 04/12/2024 Appreciate urology input and recommendation E. coli septic shock-has been on intravenous Zosyn Gram-negative bacilli bacteremia further identification and sensitivities are pending-came out to be E. 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 distribution district supervisor input and recommendation Off Levophed for the last few hours but the blood pressure seems to be going down Clinically much better today-Will change diet to AHA Has been making out a reasonable amount of urine and the kidney function has been improved Clinically much improved and remains hemodynamically stable Diet has been advanced and she will have PT and OT evaluation Clinically much better we will continue total intravenous antibiotic for 14 days No signs and or symptoms of ongoing infection Denies any significant symptoms except weakness Will need to have ultrasound-guided peripheral line to continue IV ceftriaxone until 04/28/2024 Likely be discharged either this evening or tomorrow morning (2) Hydronephrosis with obstructing calculus: Status post cystoscopy and right ureteric stent placement Denies any pain pain in the abdomen or in renal angle (3) Acute kidney failure: Baseline creatinine of 1 in 2023 Seems to have ischemic ATN with septic shock and creatinine went up to 3.0 Appreciate nephrology input and recommendation Has been getting intravenous fluid Not having enough urine output Will avoid any NSAIDs or other nephrotoxins No indication for emergent dialysis yet BUN and creatinine are better today Will continue with the current management Kidney functions keep improving-advised to drink more fluid Kidney function is much improved with improvement of creatinine to 1.45 from 2.98 as of 04/16/2024 Kidney function is even better with creatinine running almost normal IV fluid will be discontinued Advised to drink more fluid Kidney functions remains normal and maintaining Advised to continue with more fluid intake (4) Elevated troponin: Initial troponin on admission was 748 and that went up to 2293 and since then has been improving Likely secondary to stress-induced and shock with ATN EKG showed atrial fibrillation without any acute ST-T wave changes Echo of the heart showed-atrial fibrillation with ventricular rate in the range of 100 208, mild concentric LVH, LV wall motion is normal, LV systolic function is normal with EF 55 to 60%, aortic valve sclerosis mild without significant stenosis, pulmonary artery systolic pressure estimated to be 40 mmHg Doubt any ACS Denies any cardiac symptoms Mild rhabdomyolysis CK was 805 Contributed by NATALIO Rhabdomyolysis is improved (5) Emphysematous pyelonephritis: As above No shortness of breath at rest (6) Metabolic acidosis: No leukocytosis. Initial lactate 8.1, repeat lactate ~2 hours later --> 6.2 [ downtrending]. Evidence of metabolic acidosis with anion gap 17. Total bili 1.4, AST 69, and Alk Phos 124. Gap seems to be closed Will monitor lactic acid-normalized (7) Gastroenteritis: As per above: * Head CT displayed no acute injury or cranial abnormality. * Face CT showed no acute facial bone fracture. However, there is nonspecific left supraclavicular lymphadenopathy noted. * Cervical spine CT revealed no evidence of fracture or subluxation involving the cervical spine; osteopenia and spondylitic changes noted. -Stool culture NEGATIVE. Will continue aggressive IVF, IV Zosyn ordered. -PRN IV Zofran in place, monitor I&O's [as per above, Iniguez catheter in place]. -No more GI symptoms (8) NATALIO (acute kidney injury): NATALIO resolved Notes from admitting physician: Total CK 805. Initial troponin 748.3, repeat troponin ~2 hours later --> 759.8 [ trending upwards]. Evidence of NATALIO with creatinine 2.98. BUN 39, GFR 14.5 --> Appears to be in ACUTE KIDNEY FAILURE. Chest x-ray revealed no acute process. Head CT displayed no acute injury or cranial abnormality. Face CT showed no acute facial bone fracture. However, there is nonspecific left supraclavicular lymphadenopathy noted. Cervical spine CT revealed no evidence of fracture or subluxation involving the cervical spine; osteopenia and spondylitic changes noted. As previously eluded to, CTAB revealed the following: * 15 mm obstructing calculus at the right ureteropelvic junction, causing moderate right hydronephrosis. * Additional bilateral renal calculi per imaging report. Bladder appears thick- walled and contains intraluminal gas. There is also gas within the right renal collecting system. * Urothelial thickening is seen within the renal pelvis bilaterally, perinephric stranding is asymmetrically greater on the right. * Small right and trace left pleural effusions, cardiomegaly and hiatal hernia. Small volume pelvic ascites. Of note, a Iniguez catheter was placed in the ED. PATIENT MEETS SEPSIS CRITERIA GIVEN FINDINGS ABOVE. She was administered the following in the ED: IV Zosyn 4.5g and 2.5L IV NSS. Urology [Dr. Dior] was consulted by ED provider (Teofilo Lewis PA-C) following discovery of CTAB findings above. Her SBP consistently remained low in the 60-80s in the ED, thus prompting administration of Levophed per Dr. Dior's orders. Patient was quickly taken to the OR for cystoscopy and R ureteral stent placement. * She will require ICU placement following the procedure given administration of a pressor agent/current level of care requirements. -Continuous cardiac monitoring --> Afib w/ RVR in ED. -RVP, Lyme disease screening negative. -Ordered additional IVF, IV Zosyn to begin upon transfer. -UA/urine culture pending, uncollected as of now but orders are in place. -Nephrology consult ordered, appreciate their recommendation(s)/input. -Measure I&O's, Iniguez catheter in place as per above. Blood culture received, results pending. -Repeat CMP, troponin and CBC (no diff) in AM --> Monitor LFTs given recent bump. Any additional AM labs per ICU. (9) Fall: (10) Dehydration symptoms: (11) Persistent atrial fibrillation: Has been back on Eliquis (12) Chronic anticoagulation: Per my interpretation, EKG performed in the ED revealed the following: afib w/ RVR, HR 106bpm, QRS Dur 96ms and QT/QTc 358/475ms. When compared to EKG done 01/07/2017: afib has replaced sinus rhythm, nonspecific T wave abnormality now evident in anterior leads and QT has lengthened. Patient does follow with [facility]. Per [facility] documentation, it appears that she is scheduled to have a Watchman device placed in June (06/23/24) with Dr. Lea Carroll @ [facility] [place]. -Continuous cardiac monitoring as per above, HOLD Eliquis and aspirin for now --> Plt count on admission = 83. Eliquis has been restarted (13) Hyperlipidemia: -Will HOLD statin therapy for now given current evidence of acute renal failure/NATALIO. -Will start statin on discharge (14) Prediabetes: Most recent Hgb A1C 5.9, completed 02/20/24. -Diet-controlled, no need to repeat Hgb A1C at this time given findings above. (15) Depression: -Can continue BAKERY HELPER Zoloft while hospitalized. (16) Urinary incontinence: -Can continue BAKERY HELPER trospium chloride therapy while hospitalized. -Iniguez catheter in place as above, continue to closely monitor I&O's throughout hospitalization. (17) Hypertension: -Will HOLD metoprolol succinate for now --> Most recently recorded BP 73/52, SBP appears to be holding ~80s in the ED. -Can reassess need throughout hospitalization, coordinate restarting BB therapy as appropriate. DVT Prophylaxis: Has been back on Eliquis Code Status: Full Code PCP: Arlyn Vallecillo DO Dispo: Admit to ICU --> PATIENT WILL BE PLACED IN ICU FOLLOWING UROLOGICAL PROCEDURE W/ DR. DIOR. * Coordinate care w/ ICU to determine when patient will be stable enough to transition to PCU level of care. Blood pressure is controlled now Total Time Total Time Spent Total Time Spent (In Minutes): 40 minutes Discharge Plan Discharge Items Patient Disposition: Transfer Inpatient Rehab Fac Reason For Visit: GASTROENTERITIS SYMPTOMS, FALL, CLINICAL DEHYDRATI Discharge Diagnosis: Septic shock, hydronephrosis with obstructing calculus status post stent placement, NATALIO-improved Condition on Discharge: Good Activity: As commented below Activity Comment: Will need to continue PT and OT Non-emergency contact: Primary Care Provider Call non-emergency contact if: you have any medication questions and your symptoms worsen Follow-up/Referrals: Arlyn Vallecillo, DO [Primary Care Provider] - (Please make an appointment with your PCP within 7 days following discharge from the facility) Diet: Heart Healthy Addtl Attending Provider Instructions: Please take precautions to avoid falls Finish the course of antibiotic as advised Take your medications as advised Drink more fluid Please keep appointments with the healthcare providers You will need to have an outpatient appointment with the urologist following discharge from the facility and also fire medic following discharge from the facility Pending Studies at Discharge: No Stand-Alone Forms: My [facility] [address] Skilled Items Patient informed of condition?: Yes DNR: No Discharge Level of Care: Acute rehab Communicable Disease: No Discharge Prognosis: Stable Lines: US Guided Peripheral IV Urinary Catheter: No Medications and DC Order Prescriptions: New ceftriaxone 2 gram recon soln 2 g IV DAILY Qty: 9 0RF Continued ASPIRIN (ASPIRIN CHEWABLE) 81 MG CHEWABLE TAB 81 mg PO DAILY Qty: 0 Multivitamin tablet 1 tab PO DAILY Qty: 0 CALCIUM CARBONATE (CALCIUM) 600 MG tablet 600 mg PO DAILY Qty: 0 Alendronate Sodium 70 mg tablet 70 mg PO USEASDIRECTD Qty: 0 CHOLECALCIFEROL (D 1000) 1,000 UNIT capsule 1,000 inter.unit PO DAILY Qty: 0 atorvastatin 40 mg tablet 40 mg PO DAILY sertraline 100 mg tablet 150 mg PO QAM furosemide 20 mg tablet 20 mg PO .[id number] metoprolol succinate 25 mg tablet extended release 24 hr 25 mg PO DAILY trospium 60 mg capsule,extended release 24hr 60 mg PO QAM Eliquis 5 mg tablet 5 mg PO BID Discharge Orders: Discharge Order (Routine); Ordered 04/19/24 Ordered By: Sonya Malcolm Admission Data Admit Date/Time: 04/12/24 12:42 Attending Provider: Sonya Malcolm Admit Provider: Yvan Cason Primary Care Provider: Arlyn Vallecillo Other Providers: [facility]; Yvan Cason; Yolanda Thacker; Souleymane Escobar Other Interventions: Discharge Summary Assessment (RN) Last Done: 04/19/24 16:51
== END 2024-04-19 18:19 | DRG 853 ==
LOC: ED 10:18 → OR 12:41 → 1E 12:42 → SUATTDRO 12:42 → 1E 17:26 → 2S 04-14 15:25 → 3N 04-18 22:45